=== PATIENT | female | born 1935 | race Caucasian/White ===

== ENCOUNTER → 2017-03-06 | Outpatient (CLI) | payer MEDICARE ==
--- NOTE | 2017-03-07 07:07 | US ---
EXAMINATION TYPE: US kidneys/renal and bladder DATE OF EXAM: 03/06/2017 4:02 PM COMPARISON: NONE CLINICAL HISTORY: 81-year-old female N39.0 URINARY TRACT INFECTION. TECHNIQUE: Multiple sonographic images of the kidneys and bladder were obtained. FINDINGS: Right Kidney: 8.1 x 4.5 x 5.0 cm Left Kidney: 9.1 x 4.2 x 4.2 cm No hydronephrosis on either side. Bladder: No gross abnormality. Bilateral Jets seen: no IMPRESSION: No hydronephrosis. Neither ureteral jet was seen during the course of the exam. Query any underlying chronic kidney disease.
== END | disposition home or self-care (01) ==
LOC: RADUSWWP 15:44
PROVIDERS: ATTEND Internal Medicine Infectious Disease
DX: N39.0 Urinary tract infection, site not specified (principal); N20.0 Calculus of kidney
CPT/HCPCS: 76770

== ENCOUNTER → 2017-03-06 | Day surgery (SDC) | payer MEDICARE ==
[2017-03-05 15:07] VITALS: BMI 23.3
[~2017-03-06] MED LIST: ERTAPENEM 1 GM in SODIUM CHLORIDE 0.9% 50 ML IVPB ONE; LIDOCAINE 2% INJ 20 MG/ML (20 ML MDV) ONE; LIDOCAINE 2% INJ 20 MG/ML SQ ONE
[2017-03-06 13:56] VITALS: RESP 16; TEMP 98.7
--- NOTE | 2017-03-06 14:40 | IR ---
PICC LINE PLACEMENT: HISTORY: Infection requiring long-term antibiotic therapy PROCEDURE: Ultrasound and fluoroscopic guidance of PICC line placement. COMPLICATIONS: None ANESTHESIA: 1. 1% Lidocaine locally. FINDINGS/TECHNIQUE: The procedure was explained to the patient. The risks, complications, benefits and alternatives were discussed and any questions were answered. Informed consent was obtained. The patient was placed supine on the fluoroscopic table and prepped and draped in the usual sterile fash ion. Utilizing a 21 gauge needle and sonographic and fluoroscopic guidance, access in the left basi lic vein was achieved and there is placement of a 0.018 guidewire. The vein is patent. A 4-F sheath was placed over the guidewire. The guidewire and dilator were removed and a 4-F. PICC line was plac ed through the sheath with the tip at the level of the SVC. The sheath was removed, the catheter was flushed and sutured into position. The patient was stable throughout the procedure and remained sta ble upon discharge from the Department of Radiology. The vein puncture was patent under ultrasound. A michelle scale image was obtained to document patency of the vein punctured. All elements of the maximal barrier technique were utilized. FLUOROSCOPY TIME: 0.1 minute IMPRESSION: Successful PICC line placement under ultrasound and fluoroscopic guidance.
[2017-03-06 14:45] VITALS: BP 141/65; PULSE 75
== END ==
LOC: CATHCVL 13:29
PROVIDERS: ATTEND Radiology Diagnostic Radiology
DX: N39.0 Urinary tract infection, site not specified (principal); B96.4 Proteus (mirabilis) (morganii) as the cause of diseases classified elsewhere; N39.498 Other specified urinary incontinence; N20.0 Calculus of kidney; Z87.891 Personal history of nicotine dependence; I10 Essential (primary) hypertension; E78.5 Hyperlipidemia, unspecified; Z79.84 Long term (current) use of oral hypoglycemic drugs; Z79.82 Long term (current) use of aspirin; Z79.899 Other long term (current) drug therapy; Z88.1 Allergy status to other antibiotic agents; Z88.0 Allergy status to penicillin; Z88.2 Allergy status to sulfonamides; Z88.8 Allergy status to other drugs, medicaments and biological substances
CPT/HCPCS: 36569; 76937; 77001; C1751; C1769; J2001; J1335; 76770

== ENCOUNTER → 2017-03-29 | Outpatient (CLI) | payer MEDICARE ==
[2017-03-29 14:26] VITALS: RESP 16
== END | disposition home or self-care (01) ==
LOC: PROCWHC3 14:04
PROVIDERS: ATTEND Internal Medicine Infectious Disease
DX: N39.0 Urinary tract infection, site not specified (principal); B96.4 Proteus (mirabilis) (morganii) as the cause of diseases classified elsewhere
CPT/HCPCS: 99213

== ENCOUNTER → 2018-04-29 | Outpatient (CLI) | payer MEDICARE ==
--- NOTE | 2018-04-29 11:01 | XR ---
EXAMINATION TYPE: XR cervical spine comp DATE OF EXAM: 04/29/2018 TECHNIQUE: Frontal, lateral, oblique, and open mouth view of the cervical spine are obtained. HISTORY: M54.2 Cervicalgia neck pain for 2 years per patient. COMPARISON: None FINDINGS: Osseous structures are demineralized which is noted to lower radiographic sensitivity. The cervical spine is visualized in its entirety from C1 thru the top of T1 level, there is grade 1 retr olisthesis of C5 on C6 without evidence of acute fracture or dislocation. The pre-vertebral soft tis adela appears within normal limits. The C1-C2 articulation is within normal limits on the open mouth v iew. Vertebral body heights are maintained. There is advanced disc space narrowing C4-C5 level. Ther e is mild to moderate posterior disc space narrowing and spurring C5-C6 level. The oblique images are within normal limits. There is moderate to severe calcified plaque left carotid bulb in the overlyin g soft tissue. Consider carotid ultrasound to further evaluate. IMPRESSION: As above.
== END | disposition home or self-care (01) ==
LOC: RADXRMAIN 09:59
PROVIDERS: ATTEND Family Medicine
DX: M48.02 Spinal stenosis, cervical region (principal); M43.12 Spondylolisthesis, cervical region; M46.02 Spinal enthesopathy, cervical region
CPT/HCPCS: 72050

== ENCOUNTER → 2019-03-20 | Outpatient (CLI) | payer MEDICARE ==
[~2019-03-20] MED LIST changes: +DENOSUMAB 60 MG/ML 1 ML SYRINGE SQ NR; -ERTAPENEM 1 GM in SODIUM CHLORIDE 0.9% 50 ML IVPB ONE; -LIDOCAINE 2% INJ 20 MG/ML (20 ML MDV) ONE; -LIDOCAINE 2% INJ 20 MG/ML SQ ONE
[2019-03-20 14:26] VITALS: BP 147/80; PULSE 93; RESP 16; TEMP 97.8
== END ==
LOC: PROCWHC3 14:15
PROVIDERS: ATTEND Family Medicine
DX: M81.0 Age-related osteoporosis without current pathological fracture (principal)
CPT/HCPCS: 96372; J0897

== ENCOUNTER → 2021-05-26 | Outpatient (CLI) | payer MEDICARE ==
--- NOTE | 2021-05-31 09:51 | MM ---
Reason for exam: screening (asymptomatic). Last mammogram was performed 7 years and 4 months ago. History: Patient is postmenopausal. Physical Findings: A clinical breast exam by your physician is recommended on an annual basis and results should be correlated with mammographic findings. MG 3D Screening Mammo W/Cad Bilateral CC and MLO view(s) were taken. Prior study comparison: January 12, 2014, bilateral digital screening mammo w/CAD. July 04, 2012, bilateral digital screening mammo w/CAD. March 23, 2010, bilateral digital screening mammogram. Focal asymmetry right and left upper outer quadrant, stable. ASSESSMENT: Benign, BI-RAD 2 RECOMMENDATION: Routine screening mammogram of both breasts in 1 year.
== END | disposition home or self-care (01) ==
LOC: RADMAMWWP 11:24
PROVIDERS: ATTEND Family Medicine
DX: Z12.31 Encounter for screening mammogram for malignant neoplasm of breast (principal)
CPT/HCPCS: 77063; 77067

== ENCOUNTER → 2022-05-20 | Outpatient (CLI) | payer MEDICARE ==
--- NOTE | 2022-05-20 12:20 | MR ---
EXAMINATION TYPE: MR lumbar spine wo con DATE OF EXAM: 05/20/2022 COMPARISON: None HISTORY: Lower back pain, down back of right thigh. CONTRAST: 0 mL intravenous Gadavist. TECHNIQUE: Multiplanar, multisequence images of the lumbar spine were acquired. FINDINGS: Cord terminates at the L1 level. Degenerative disc changes are present throughout the lumbar spine. Schmorl's node formation is noted L2-L3 and T12. L5-S1: There is a left paracentral left lateral disc herniation. In the sagittal plane there appears to be an annular tear. Correlate with left S1 radicular symptoms No spinal canal stenosis. Severe b ilateral foraminal stenosis present . L4-L5: No significant disc bulge or disc herniation. No spinal canal stenosis. No foraminal stenosi s. Facet hypertrophy with ligamentum flavum laxity is noted no stenosis is evident. L3-L4: There is loss of disc height. Residual disc bulge has mild anterior thecal sac compression. Hy pertrophy with ligamentum flavum laxity is posterior lateral thecal sac impression, greater on the ri ght L2-L3: Mild disc bulging is present with anterior thecal sac contact No spinal canal stenosis. No f oraminal stenosis. Facet hypertrophy and ligamentum flavum laxity is some mild posterior lateral the rex sac compression. L1-L2: Disc bulge has mild anterior thecal sac compression. No spinal canal stenosis. No foraminal stenosis. . T12-L1: Minimal right paracentral broad-based bulge is present with anterior thecal sac compression. No stenosis is present No foraminal stenosis. IMPRESSION: 1. Left paracentral small disc herniation and annular tear at L5-S1 in the left paracentral region. C orrelate left S1 radicular symptoms. 2. Multilevel degenerative disc changes with loss of disc height and residual disc bulging. Disc bulg ing appears greatest L1-L2 3 and L3-4 with mild anterior thecal sac compression
== END | disposition home or self-care (01) ==
LOC: RADMRIMAIN 11:15
PROVIDERS: ATTEND Physical Medicine & Rehabilitation
DX: M47.817 Spondylosis without myelopathy or radiculopathy, lumbosacral region (principal); M41.24 Other idiopathic scoliosis, thoracic region; M47.814 Spondylosis without myelopathy or radiculopathy, thoracic region; M47.812 Spondylosis without myelopathy or radiculopathy, cervical region; M51.27 Other intervertebral disc displacement, lumbosacral region; M51.36 Other intervertebral disc degeneration, lumbar region
CPT/HCPCS: 72148

== ENCOUNTER 2023-04-08 07:45 | Day surgery (SDC) | payer MEDICARE ==
[2023-04-04 15:05] VITALS: BMI 18.8
--- NOTE | 2023-04-08 07:34 | P.GSHP ---
History of Present Illness H&P Date: 04/08/23 CHIEF COMPLAINT: GERD HISTORY OF PRESENT ILLNESS: The patient is a 87-year-old female who presents reports gastroesophageal reflux disease. Upper endoscopy was offered for further evaluation and management. PAST MEDICAL HISTORY: Please see list. PAST SURGICAL HISTORY: Please see list. MEDICATIONS: Please see list. ALLERGIES: Please see list. SOCIAL HISTORY: No illicit drug use FAMILY HISTORY: No reports of Crohn disease or ulcerative colitis. REVIEW OF ORGAN SYSTEMS: CONSTITUTIONAL: No reports of fevers or chills. GI: Denies any blood in stools or constipation. PHYSICAL EXAM: VITAL SIGNS: Stable GENERAL: Well-developed and pleasant in no acute distress. HEENT: No scleral icterus. Extraocular movements grossly intact. Moist buccal mucosa. NECK: Supple without lymphadenopathy. CHEST: Unlabored respirations. Equal bilateral excursions. CARDIOVASCULAR: Regular rate and rhythm. Distal 2+ pulses. ABDOMEN: Soft, nondistended. MUSCULOSKELETAL: No clubbing, cyanosis, or edema. ASSESSMENT: 1. Gastroesophageal reflux disease PLAN: 1. Recommend proceeding with an upper endoscopy Past Medical History Past Medical History: CVA/TIA, Hypertension, Osteoarthritis (OA) Additional Past Medical History / Comment(s): possible TIA 2015, hx fx vertebrae in back., back pain, osteoporosis. History of Any Multi-Drug Resistant Organisms: None Reported Past Surgical History: Hysterectomy, Joint Replacement Additional Past Surgical History / Comment(s): colonoscopy, total rt knee Past Anesthesia/Blood Transfusion Reactions: Previous Problems w/ Anesthesia, Postoperative Nausea & Vomiting (PONV) Additional Past Anesthesia/Blood Transfusion Reaction / Comment(s): passed out after discharge from colonoscopy and went by ambulance back to the ER. Past Psychological History: No Psychological Hx Reported Smoking Status: Former smoker Past Alcohol Use History: Rare Additional Past Alcohol Use History / Comment(s): started smoking at age 20,smoked 1/2 ppd, quit in 1999 Past Drug Use History: None Reported - Past Family History Sister(s) Family Medical History: Cancer Additional Family Medical History / Comment(s): pancreatic cancer Mother Family Medical History: Hypertension, Osteoarthritis (OA) Father Additional Family Medical History / Comment(s): panic attacks and alcoholism Medications and Allergies Home Medications Medication Instructions Recorded Confirmed Type amLODIPine [Norvasc] 5 mg PO DAILY 03/16/15 04/04/23 History HYDROcodone/APAP 7.5-325MG [[place] 1 tab PO DIRECTED PRN 03/05/17 04/04/23 History 7.5-325] Aspirin 81 mg PO DAILY 03/20/19 04/04/23 History Calcium Carbonate [Calcium] 600 mg PO DAILY 04/04/23 04/04/23 History Multivit-Min/Iron/Folic/Lutein 1 each PO DAILY 04/04/23 04/04/23 History [Centrum Silver Women Tablet] polyethylene glycoL 3350 [Miralax] 17 gm PO DIRECTED 04/04/23 04/04/23 History Allergies Allergy/AdvReac Type Severity Reaction Status Date / Time alendronate sodium Allergy Unknown Verified 04/04/23 14:37 [From Fosamax] ceftriaxone [From Rocephin] Allergy Unknown Verified 04/04/23 14:37 Penicillins Allergy Unknown Verified 04/04/23 14:37 Bogalpv-KBW-SpL Reductase Allergy Unknown Verified 04/04/23 14:37 Inhibitor [Kvdtlcn-Ohv-Jmo Reductase Inhibitor] sulfamethoxazole Allergy facial Verified 04/04/23 14:37 [From Bactrim] swelling trimethoprim [From Bactrim] Allergy facial Verified 04/04/23 14:37 swelling amoxicillin AdvReac mouth Verified 04/04/23 14:37 blisters bacitracin AdvReac blisters Verified 04/04/23 14:37 [From Neosporin ([id number])] bacitracin zinc AdvReac blisters Verified 04/04/23 14:37 [From Neosporin ([id number])] neomycin sulfate AdvReac blisters Verified 04/04/23 14:37 [From Neosporin ([id number])] polymyxin B AdvReac blisters Verified 04/04/23 14:37 [From Neosporin ([id number])]
[~2023-04-08 07:45] MED LIST changes: -DENOSUMAB 60 MG/ML 1 ML SYRINGE SQ NR; +LACTATED RINGERS 1,000 ML IV SCH
[2023-04-08 08:14] VITALS: TEMP 97.5
[2023-04-08] MEDS ORDERED: LIDOCAINE 2% INJ 20 MG/ML (2 ML VIAL) ONE (08:23)
[2023-04-08] MEDS ORDERED: PROPOFOL 10 MG/ML 20 ML VIAL IV ONE (08:23)
--- NOTE | 2023-04-08 08:44 | P.PCN ---
Date of Procedure: 04/08/23 Description of Procedure: PREOPERATIVE DIAGNOSIS: Rectal bleeding POSTOPERATIVE DIAGNOSIS: Constipation Incomplete prep OPERATION: Colonoscopy to the sigmoid colon. SURGEON: Radha Woodall MD. ANESTHESIA: MAC. INDICATIONS: The patient is a 87-year-old female who presents for rectal bleeding and fi stula. Benefits and risks were described and informed consent was obtained. DESCRIPTION OF PROCEDURE: The patient had undergone Sutab prep. She had been brought into the operating room and laid in the left lateral decubitus position. After adequate intravenous sedation, the rectum was examined with 2% lidocaine jelly. External hemorrhoids were encountered. The rectal tone was loose. No lesions were palpated in the rectal vault. Moderate semisolid stools identified in the sigmoid colon. The scope was passed to 30 cm from the anal verge. Due to poor prep, procedure canceled. The colon was desufflated. The patient had tolerated the procedure well. Withdrawal time was over 6 minutes. FINDINGS: [place] preparation quality scale 5 (1-5) Nondiagnostic colonoscopy/flexible sigmoidoscopy RECOMMENDATIONS: Repeat colonoscopy after adequate prep Plan - Discharge Summary New Discharge Prescriptions: Continue amLODIPine [Norvasc] 5 mg PO DAILY HYDROcodone/APAP 7.5-325MG [[place] 7.5-325] 1 tab PO DIRECTED PRN PRN Reason: Pain Aspirin 81 mg PO DAILY polyethylene glycoL 3350 [Miralax] 17 gm PO DIRECTED Multivit-Min/Iron/Folic/Lutein [Centrum Silver Women Tablet] 1 each PO DAILY Calcium Carbonate [Calcium] 600 mg PO DAILY Discharge Medication List amLODIPine [Norvasc] 5 mg PO DAILY 03/16/15 [History] HYDROcodone/APAP 7.5-325MG [[place] 7.5-325] 1 tab PO DIRECTED PRN 03/05/17 [History] Aspirin 81 mg PO DAILY 03/20/19 [History] Calcium Carbonate [Calcium] 600 mg PO DAILY 04/04/23 [History] Multivit-Min/Iron/Folic/Lutein [Centrum Silver Women Tablet] 1 each PO DAILY 04/04/23 [History] polyethylene glycoL 3350 [Miralax] 17 gm PO DIRECTED 04/04/23 [History] Follow up Appointment(s)/Referral(s): Radha Woodall MD [STAFF PHYSICIAN] - As Needed Patient Instructions/Handouts: Constipation (DC) Discharge Disposition: HOME SELF-CARE
[2023-04-08 09:13] VITALS: BP 143/76; PULSE 76; RESP 20
== END 2023-04-08 09:15 | disposition home or self-care (01) ==
LOC: ORWHC2ENDO 07:45
PROVIDERS: ATTEND Surgery Plastic and Reconstructive Surgery
DX: K64.4 Residual hemorrhoidal skin tags (principal); K21.9 Gastro-esophageal reflux disease without esophagitis; I10 Essential (primary) hypertension; M19.90 Unspecified osteoarthritis, unspecified site; M81.0 Age-related osteoporosis without current pathological fracture; Z86.73 Personal history of transient ischemic attack (TIA), and cerebral infarction without residual deficits; F10.20 Alcohol dependence, uncomplicated; Z87.891 Personal history of nicotine dependence; Z79.82 Long term (current) use of aspirin; Z79.899 Other long term (current) drug therapy; Z88.1 Allergy status to other antibiotic agents; Z88.0 Allergy status to penicillin; Z88.8 Allergy status to other drugs, medicaments and biological substances; Z88.2 Allergy status to sulfonamides
CPT/HCPCS: 45330; J2704; J2001

== ENCOUNTER → 2023-05-06 | Day surgery (SDC) | payer MEDICARE ==
[2023-05-01 14:58] VITALS: BMI 18.8
[~2023-05-06] MED LIST changes: +LIDOCAINE 1% (10MG/ML) FOR IV START INTRADERMA PRN; +PROPOFOL 10 MG/ML 20 ML VIAL IV ONE
[2023-05-06 08:38] VITALS: RESP 16; TEMP 97
--- NOTE | 2023-05-06 08:52 | P.GSHP ---
History of Present Illness H&P Date: 05/06/23 CHIEF COMPLAINT: Rectovaginal fistula rectal bleeding HISTORY OF PRESENT ILLNESS: The patient is a 87-year-old female who presents with rectal bleeding including possible colovaginal fistula. Lower endoscopy was offered for further evaluation and management. PAST MEDICAL HISTORY: Please see list. PAST SURGICAL HISTORY: Please see list. MEDICATIONS: Please see list. ALLERGIES: Please see list. SOCIAL HISTORY: No illicit drug use FAMILY HISTORY: No reports of Crohn disease or ulcerative colitis. REVIEW OF ORGAN SYSTEMS: CONSTITUTIONAL: No reports of fevers or chills. PHYSICAL EXAM: VITAL SIGNS: Stable GENERAL: Well-developed pleasant in no acute distress. HEENT: No scleral icterus. Extraocular movements grossly intact. Moist buccal mucosa. NECK: Supple without lymphadenopathy. CHEST: Unlabored respirations. Equal bilateral excursions. CARDIOVASCULAR: Regular rate and rhythm. Distal 2+ pulses. ABDOMEN: Soft, nontender, nondistended. MUSCULOSKELETAL: No clubbing, cyanosis, or edema. ASSESSMENT: 1. Rectal bleeding with colovaginal fistula PLAN: 1. Recommend proceeding with a lower endoscopy Past Medical History Past Medical History: CVA/TIA, Hypertension, Osteoarthritis (OA) Additional Past Medical History / Comment(s): possible TIA 2016, hx fx vertebrae in back., back pain, osteoporosis. History of Any Multi-Drug Resistant Organisms: None Reported Past Surgical History: Hysterectomy, Joint Replacement Additional Past Surgical History / Comment(s): colonoscopy, total rt knee Past Anesthesia/Blood Transfusion Reactions: Previous Problems w/ Anesthesia, Postoperative Nausea & Vomiting (PONV) Additional Past Anesthesia/Blood Transfusion Reaction / Comment(s): passed out after discharge from colonoscopy and went by ambulance back to the ER. Smoking Status: Former smoker - Past Family History Sister(s) Family Medical History: Cancer Additional Family Medical History / Comment(s): pancreatic cancer Mother Family Medical History: Hypertension, Osteoarthritis (OA) Father Additional Family Medical History / Comment(s): panic attacks and alcoholism Medications and Allergies Home Medications Medication Instructions Recorded Confirmed Type amLODIPine [Norvasc] 5 mg PO DAILY 03/16/15 05/06/23 History HYDROcodone/APAP 7.5-325MG [[place] 1 tab PO DIRECTED PRN 03/05/17 05/06/23 History 7.5-325] Aspirin 81 mg PO DAILY 03/20/19 05/06/23 History Calcium Carbonate [Calcium] 600 mg PO DAILY 04/04/23 05/06/23 History Multivit-Min/Iron/Folic/Lutein 1 each PO DAILY 04/04/23 05/06/23 History [Centrum Silver Women Tablet] polyethylene glycoL 3350 [Miralax] 17 gm PO DIRECTED 04/04/23 05/06/23 History Lactulose [Cephulac] 20 gm PO BID #400 ml 04/08/23 05/06/23 Rx Allergies Allergy/AdvReac Type Severity Reaction Status Date / Time alendronate sodium Allergy Unknown Verified 05/06/23 08:39 [From Fosamax] ceftriaxone [From Rocephin] Allergy Unknown Verified 05/06/23 08:39 Penicillins Allergy Unknown Verified 05/06/23 08:39 Gsurrpx-KES-CrL Reductase Allergy Unknown Verified 05/06/23 08:39 Inhibitor [Lifwhlx-Pvc-Juw Reductase Inhibitor] sulfamethoxazole Allergy facial Verified 05/06/23 08:39 [From Bactrim] swelling trimethoprim [From Bactrim] Allergy facial Verified 05/06/23 08:39 swelling amoxicillin AdvReac mouth Verified 05/06/23 08:39 blisters bacitracin AdvReac blisters Verified 05/06/23 08:39 [From Neosporin ([id number])] bacitracin zinc AdvReac blisters Verified 05/06/23 08:39 [From Neosporin ([id number])] neomycin sulfate AdvReac blisters Verified 05/06/23 08:39 [From Neosporin ([id number]-rcg-heaje)] polymyxin B AdvReac blisters Verified 05/06/23 08:39 [From Neosporin ([id number]-[id number])] Surgical - Exam Vital Signs Temp Pulse Resp BP Pulse Ox 97 F L 96 16 140/65 98 05/06/23 08:30 05/06/23 08:30 05/06/23 08:30 05/06/23 08:30 05/06/23 08:30
[2023-05-06 09:32] VITALS: BP 115/71; PULSE 68
--- NOTE | 2023-05-06 09:51 | P.PCN ---
Date of Procedure: 05/06/23 Description of Procedure: PREOPERATIVE DIAGNOSIS: Rectal bleeding Colovaginal fistula POSTOPERATIVE DIAGNOSIS: Sigmoid diverticulosis with stricture OPERATION: Colonoscopy to the sigmoid colon. SURGEON: Radha Woodall MD. ANESTHESIA: MAC. INDICATIONS: The patient is a 87-year-old female who presents with change in bowel habits, rectal bleeding, possible fistula. Benefits and risks were described and informed consent was obtained. DESCRIPTION OF PROCEDURE: The patient had undergone extended prep including lactulose, Suprep. She had been brought into the operating room and laid in the left lateral decubitus position. After adequate intravenous sedation, the rectum was examined with 2% lidocaine jelly. External hemorrhoids were encountered. The rectal tone was loose. No lesions were palpated in the rectal vault. An Olympus colonoscope was advanced along the rectum to a very tortuous sigmoid colon. The scope was then exchanged for a pediatric colonoscope. Despite multiple maneuvers, the sigmoid colon had severe tortuosity preventing further advancement of scope. The scope was passed to 30 cm from the anal verge with multiple sigmoid diverticula identified in stricture. No evidence of polyps were identified. As the patient posed high risk for perforation with persistence of the procedure, the procedure was discontinued. The colon was desufflated. The patient had tolerated the procedure well. Withdrawal time was over 6 minutes. FINDINGS: [place] preparation quality scale 3m (1-5) Tortuous sigmoid colon with stricture preventing further advancement of the scope. Sigmoid colon stricture from diverticulosis. External prolapsed hemorrhoids. Scope advanced to sigmoid colon at 30 cm. No arteriovenous malformations. No adenomatous polyps sigmoid colon. No focal colitis. RECOMMENDATIONS: Completion of colonoscopy evaluation with barium enema. Plan - Discharge Summary Discharge Rx Participant: Yes New Discharge Prescriptions: Continue amLODIPine [Norvasc] 5 mg PO DAILY HYDROcodone/APAP 7.5-325MG [[place] 7.5-325] 1 tab PO DIRECTED PRN PRN Reason: Pain Aspirin 81 mg PO DAILY polyethylene glycoL 3350 [Miralax] 17 gm PO DIRECTED Multivit-Min/Iron/Folic/Lutein [Centrum Silver Women Tablet] 1 each PO DAILY Calcium Carbonate [Calcium] 600 mg PO DAILY Lactulose [Cephulac] 20 gm PO BID #400 ml Discharge Medication List amLODIPine [Norvasc] 5 mg PO DAILY 03/16/15 [History] HYDROcodone/APAP 7.5-325MG [[place] 7.5-325] 1 tab PO DIRECTED PRN 03/05/17 [History] Aspirin 81 mg PO DAILY 03/20/19 [History] Calcium Carbonate [Calcium] 600 mg PO DAILY 04/04/23 [History] Multivit-Min/Iron/Folic/Lutein [Centrum Silver Women Tablet] 1 each PO DAILY 04/04/23 [History] polyethylene glycoL 3350 [Miralax] 17 gm PO DIRECTED 04/04/23 [History] Lactulose [Cephulac] 20 gm PO BID #400 ml 04/08/23 [Rx] Follow up Appointment(s)/Referral(s): Radha Woodall MD [STAFF PHYSICIAN] - 05/28/23 11:30 am Patient Instructions/Handouts: Diverticulitis (DC) Discharge Disposition: HOME SELF-CARE
--- NOTE | 2023-05-06 11:48 | FL ---
EXAMINATION TYPE: FL barium enema DATE OF EXAM: 05/06/2023 CLINICAL HISTORY: Large bowel obstruction, sigmoid stricture TECHNIQUE: A single contrast barium enema study is performed. Total dose area product (DAP) in uGy* m?, mGy*cm? (or similar): COMPARISON: None. FINDINGS: The patient is status post incomplete colonoscopy. There is a large amount of air within th e large bowel as well as the small bowel. Therefore single contrast barium enema was attempted. Singl e contrast barium enema was initiated however the patient could not retain the barium and therefore e xamination was discontinued. IMPRESSION: Discontinued barium enema.
== END | disposition home or self-care (01) ==
LOC: ORWHC2ENDO 08:16
PROVIDERS: ATTEND Surgery Plastic and Reconstructive Surgery
DX: K62.5 Hemorrhage of anus and rectum (principal); N82.3 Fistula of vagina to large intestine; K57.30 Diverticulosis of large intestine without perforation or abscess without bleeding; K56.699 Other intestinal obstruction unspecified as to partial versus complete obstruction; I10 Essential (primary) hypertension; Z86.73 Personal history of transient ischemic attack (TIA), and cerebral infarction without residual deficits; M19.90 Unspecified osteoarthritis, unspecified site; Z79.82 Long term (current) use of aspirin; Z90.710 Acquired absence of both cervix and uterus; Z98.890 Other specified postprocedural states; Z87.891 Personal history of nicotine dependence; Z82.61 Family history of arthritis; Z79.899 Other long term (current) drug therapy
CPT/HCPCS: 74270; 45330; J2704

== ENCOUNTER 2024-11-20 16:25 | Inpatient (IN) | payer MEDICARE ==
[2024-11-20] MEDS ORDERED: ACETAMINOPHEN IV (For NPO) 700 MG in EMPTY BAG 1 BAG IVPB STA (19:27)
--- NOTE | 2024-11-20 19:27 | ED ---
General Adult HPI - General Chief complaint: Urogenital Stated complaint: bowel/bladder issue Time Seen by Provider: 11/20/24 16:47 Source: patient, family, RN notes reviewed, old records reviewed Mode of arrival: ambulatory Limitations: no limitations - History of Present Illness Initial comments: Patient not in the room on the first 3 occasions I tried to evaluate her however she was on the fourth. Patient is an 89-year-old female presenting to the emergency department with concerns for left CVA pain and urinary frequency. Symptoms have been occurring for several days. Patient does have some chronic back pain however left CVA region is where is bothering her currently. Patient has been constipated recently. Patient has significant urinary frequency and urgency. Patient did have 1 episode of incontinence. No midline back pain. No leg weakness. No loss of sensation. Patient was in the emergency department yesterday and discussion was had to have the patient stay in the hospital however patient refused at that time. - Related Data Home Medications Medication Instructions Recorded Confirmed HYDROcodone/APAP 7.5-325MG [[place] 1 tab PO BID PRN 03/05/17 11/20/24 7.5-325] Cyclobenzaprine [Flexeril] 5 mg PO HS PRN 11/20/24 11/20/24 Levofloxacin [Levaquin] 750 mg PO HS 11/20/24 11/20/24 Losartan [Cozaar] 50 mg PO DAILY 11/20/24 11/20/24 Allergies Allergy/AdvReac Type Severity Reaction Status Date / Time alendronate sodium Allergy Unknown Verified 11/20/24 18:17 [From Fosamax] ceftriaxone [From Rocephin] Allergy Unknown Verified 11/20/24 18:17 Penicillins Allergy Unknown Verified 11/20/24 18:17 Ohvklep-MSS-NkE Reductase Allergy Unknown Verified 11/20/24 18:17 Inhibitor [Yghocjj-Kdm-Ppe Reductase Inhibitor] sulfamethoxazole Allergy facial Verified 11/20/24 18:17 [From Bactrim] swelling trimethoprim [From Bactrim] Allergy facial Verified 11/20/24 18:17 swelling amoxicillin AdvReac mouth Verified 11/20/24 18:17 blisters bacitracin AdvReac blisters Verified 11/20/24 18:17 [From Neosporin ([id number])] bacitracin zinc AdvReac blisters Verified 11/20/24 18:17 [From Neosporin (zro-[id number])] neomycin sulfate AdvReac blisters Verified 11/20/24 18:17 [From Neosporin ([id number]-[id number])] polymyxin B AdvReac blisters Verified 11/20/24 18:17 [From Neosporin ([id number]-[id number])] Review of Systems ROS Statement: Those systems with pertinent positive or pertinent negative responses have been documented in the HPI. ROS Other: All systems not noted in ROS Statement are negative. Constitutional: Denies: fever Eyes: Denies: eye pain ENT: Denies: ear pain Respiratory: Denies: dyspnea Cardiovascular: Denies: chest pain Gastrointestinal: Reports: as per HPI Genitourinary: Reports: as per HPI, urgency, frequency Musculoskeletal: Reports: as per HPI Neurological: Denies: weakness, numbness, paresthesias Past Medical History Past Medical History: CVA/TIA, Hypertension, Osteoarthritis (OA) Additional Past Medical History / Comment(s): possible TIA 2015, hx fx vertebrae in back., back pain, osteoporosis. History of Any Multi-Drug Resistant Organisms: None Reported Past Surgical History: Hysterectomy, Joint Replacement Additional Past Surgical History / Comment(s): colonoscopy, total rt knee Past Anesthesia/Blood Transfusion Reactions: Previous Problems w/ Anesthesia, Postoperative Nausea & Vomiting (PONV) Additional Past Anesthesia/Blood Transfusion Reaction / Comment(s): passed out after discharge from colonoscopy and went by ambulance back to the ER. Past Psychological History: No Psychological Hx Reported Smoking Status: Former smoker Past Alcohol Use History: None Reported Past Drug Use History: None Reported - Past Family History Sister(s) Family Medical History: Cancer Additional Family Medical History / Comment(s): pancreatic cancer Mother Family Medical History: Hypertension, Osteoarthritis (OA) Father Additional Family Medical History / Comment(s): panic attacks and alcoholism General Exam Limitations: no limitations General appearance: alert, in no apparent distress Head exam: Present: normocephalic Eye exam: Present: normal appearance Neck exam: Present: normal inspection Respiratory exam: Present: normal lung sounds bilaterally Cardiovascular Exam: Present: regular rate, normal rhythm Expanded Peripheral pulses: 2+: Posterior Tibialis (R), Posterior Tibialis (L) GI/Abdominal exam: Present: soft. Absent: distended, tenderness Extremities exam: Present: normal inspection Back exam: Present: normal inspection. Absent: tenderness, CVA tenderness (R), CVA tenderness (L), vertebral tenderness Neurological exam: Present: alert Psychiatric exam: Present: normal affect, normal mood Skin exam: Present: normal color Course Vital Signs 11/20/24 11/20/24 16:37 18:18 Temperature 97.5 F L 97.7 F Pulse Rate 80 94 Respiratory 18 20 Rate Blood Pressure 132/76 127/77 O2 Sat by Pulse 100 96 Oximetry Medical Decision Making - Medical Decision Making Was pt. sent in by a medical professional or institution (, PA, PILE DRIVER OPERATOR [employer], urgent care, hospital, or alf...) When possible be specific @ -No Did you speak to anyone other than the patient for history (EMS, parent, family, police, friend...)? What history was obtained from this source @ -Family is present helps provide history including patient's recent visit and symptoms as patient is a poor historian Did you review nursing and triage notes (agree or disagree)? Why? @ -I reviewed and agree with nursing and triage notes Were old charts reviewed (outside hosp., previous admission, EMS record, old EKG, old radiological studies, urgent care reports/EKG's, alf records)? Report findings @ -No old charts were reviewed Differential Diagnosis (chest pain, altered mental status, abdominal pain women, abdominal pain men, vaginal bleeding, weakness, fever, dyspnea, syncope, headache, dizziness, GI bleed, back pain, seizure, CVA, palpatations, mental health, musculoskeletal)? @ -Differential Abdominal Pain Women: Appendicitis, Cholecystitis, diverticulosis, ischemic bowel, pancreatitis, hepatitis, UTI, gastroenteritis, AAA, incarcerated hernia, bowel obstruction, constipation, inflammatory bowel, hepatitis, peptic ulcer disease, splenic infarction, perforated viscus, vulvitis, ovarian torsion, PID, kidney stone, placenta abruption, this is not meant to be an all-inclusive list EKG interpreted by me (3pts min.). @ -As above X-rays interpreted by me (1pt min.). @ -None done CT interpreted by me (1pt min.). @ -None done U/S interpreted by me (1pt. min.). @ -None done What testing was considered but not performed or refused? (CT, X-rays, U/S, labs)? Why? @ -Considered imaging however this was done yesterday What meds were considered but not given or refused? Why? @ -None Did you discuss the management of the patient with other professionals (professionals i.e. , PA, PILE DRIVER OPERATOR [employer], lab, RT, psych nurse, social media campaign manager, healthcare prof, teacher, community cultural development officer, case aide)? Give summary @ -Case was discussed with Dr. maharaj who will admit covering Dr. Montero Was smoking cessation discussed for >3mins.? @ -No Was critical care preformed (if so, how long)? @ -No Were there social determinants of health that impacted care today? How? (Homelessness, low income, unemployed, alcoholism, drug addiction, transportation, low edu. Level, literacy, decrease access to med. care, half-way, rehab)? @ -No Was there de-escalation of care discussed even if they declined (Discuss DNR or withdrawal of care, Hospice)? DNR status @ -No What co-morbidities impacted this encounter? (DM, HTN, Smoking, COPD, CAD, Cancer, CVA, ARF, Chemo, Hep., AIDS, mental health diagnosis, sleep apnea, morbid obesity)? @ -None Was patient admitted / discharged? Hospital course, mention meds given and route, prescriptions, significant lab abnormalities, going to OR and other pertinent info. @ -Patient presents with left flank pain, urinary frequency and constipation symptoms. CAT scan yesterday concerning for thickening of the sigmoid colon with possible fistulous. Patient will be admitted with IV antibiotics and surgical consult. Patient and family updated. Admission orders written Undiagnosed new problem with uncertain prognosis? @ -No Drug Therapy requiring intensive monitoring for toxicity (Heparin, Nitro, Insulin, Cardizem)? @ -No Were any procedures done? 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 UTI Acute, or Chronic, or Acute on Chronic? @ -Acute, acute Uncomplicated (without systemic symptoms) or Complicated (systemic symptoms)? @ -Default Side effects of treatment? @ -No Exacerbation, Progression, or Severe Exacerbation? @ -No Poses a threat to life or bodily function? How? (Chest pain, [place], [place], pneumonia, PE, COPD, DKA, ARF, appy, cholecystitis, CVA, Diverticulitis, Homicidal, Suicidal, threat to staff... and all critical care pts) @ -Threat for continued infection. Threat for tumor of the intestine. Disposition Clinical Impression: Urinary tract infection Disposition: ADMITTED IP TO THIS HOSP Condition: Serious Is patient prescribed a controlled substance at d/c from ED?: No Referrals: Evangelista Montero DO [Primary Care Provider] - 1-2 days Time of Disposition: 19:37
[2024-11-20] MEDS ORDERED: NALOXONE 0.4 MG/ML 1 ML VIAL IV PRN (19:39)
[2024-11-20] MEDS ORDERED: ACETAMINOPHEN TAB 325 MG TAB PO PRN (19:39)
[2024-11-20 19:57] LABS: Appearance,Urine Turbid (Clear); Bilirubin,Urine Negative (Negative); Blood,Urine Moderate (Negative); Color,Urine Yellow; Glucose,Urine (UA) Negative (Negative); Ketones,Urine 1+ (Negative); Leukocyte Esterase,Urine Large (Negative); Mucus,Urine Occasional /hpf; Nitrite,Urine Negative (Negative); Protein,Urine 1+ (Negative); RBC,Urine 61 /hpf (0-5); Specific Gravity,Urine 1.025 (1.001-1.035); Squamous Epithelial Cell,Urine 5 /hpf (0-4); Urobilinogen,Urine <2.0 mg/dL (<2.0); WBC,Urine >182 /hpf (0-5)
[2024-11-20 20:03] LABS: Basophils # (A) 0.1 k/uL (0-0.2); Basophils % (A) 1 %; Eosinophils # (A) 0.1 k/uL (0-0.7); Eosinophils % (A) 1 %; HCT 40.3 % (34.0-46.0); HGB 13.4 gm/dL (11.4-16.0); Lymphocytes # (A) 1.6 k/uL (1.0-4.8); Lymphocytes % (A) 17 %; MCH 31.9 pg (25.0-35.0); MCHC 33.2 g/dL (31.0-37.0); Mean Platelet Volume 7.5; Monocytes # (A) 0.5 k/uL (0-1.0); Monocytes % (A) 5 %; Neutrophils # (A) 7.3 k/uL (1.3-7.7); Neutrophils % (A) 76 %; Platelet Count 199 k/uL (150-450); RDW 12.6 % (11.5-15.5); WBC 9.6 k/uL (3.8-10.6)
[2024-11-20 20:13] LABS: ALT 14 U/L (4-34); AST 25 U/L (14-36); African American GFR (CKD) 58 (>60 ml/min/1.73 sqM); Albumin 4.3 g/dL (3.5-5.0); Alkaline Phosphatase 89 U/L (38-126); Amylase 41 U/L (30-110); Anion Gap 9 mmol/L; Blood Urea Nitrogen 19 mg/dL (7-17); Calcium 9.6 mg/dL (8.4-10.2); Carbon Dioxide 27 mmol/L (22-30); Chloride 100 mmol/L (98-107); Glucose 94 mg/dL (74-99); Lipase 42 U/L (23-300); Non-African American GFR(CKD) 50 (>60 ml/min/1.73 sqM); Potassium 3.9 mmol/L (3.5-5.1); Sodium 136 mmol/L (137-145); Total Bilirubin 0.8 mg/dL (0.2-1.3); Total Protein 7.6 g/dL (6.3-8.2)
[2024-11-20] MEDS: ACETAMINOPHEN IV (For NPO) 1,000 MG in EMPTY BAG 1 BAG IVPB STA (21:10)
[2024-11-20] MEDS: FAMOTIDINE 20 MG TAB PO SCH (21:22)
[2024-11-20] MEDS: LEVOFLOXACIN 500MG-D5W PMX 500 MG in DEXTROSE/WATER 1 100ML.BAG IVPB SCH (21:25)
[2024-11-20] MEDS: HYDROcodone/APAP 7.5-325MG 1 EACH TAB PO PRN (22:41)
[2024-11-21] MEDS: LOSARTAN 50 MG TAB PO SCH (09:20)
[2024-11-21 11:28] VITALS: BMI 18.2
[2024-11-21 12:27] LABS: ALT 12 U/L (8-44); AST 23 U/L (13-35); Albumin 3.7 g/dL (3.8-4.9); Albumin/Globulin Ratio 1.32 Ratio (1.60-3.17); Alkaline Phosphatase 73 U/L (41-126); Blood Urea Nitrogen 15.4 mg/dL (9.0-27.0); Calcium 9.3 mg/dL (8.7-10.3); Carbon Dioxide 24.8 mmol/L (21.6-31.8); Chloride 103 mmol/L (96-109); Globulin 2.8 g/dL (1.6-3.3); Glucose 88 mg/dL (70-110); Potassium 3.8 mmol/L (3.5-5.5); Sodium 139 mmol/L (135-145); Total Bilirubin 0.6 mg/dL (0.3-1.2); Total Protein 6.5 g/dL (6.2-8.2)
--- NOTE | 2024-11-21 12:42 | P.HPIM ---
History of Present Illness H&P Date: 11/21/24 History of present illness; 89-year-old lady with past medical history significant for hypertension, CVA who came to the ER for left flank pain. Patient was seen in the ER 24 hours ago as well at which time she was advised to stay in the hospital and get IV antibiotics but patient refused. Apparently patient was all right couple of days ago when she started having left flank pain. Patient was complaining of burning micturition, there was complaint of any urinary hesitancy and increased frequency. Patient went to an urgent care and had a UA done and was later called by urgent care stating that she has a UTI and needs to go to the ER. In the ER patient CT abdominal pelvis done that show ed scattered colonic diverticulosis, there was moderate circumferential wall thickening of the sigmoid colon possible chronic diverticulitis versus neoplasm, there was also evidence of fistula tract extended to lateral fornix of the vagina. ER initially talked with with patient regarding staying in the hospital getting seen by surgeon but patient refused and left on oral antibiotics. Patient later came back to the ER within 24 hours because of persistent left flank pain and constipation. Initial lab work done in the ER showed WBC 9.6, hemoglobin 13.4, platelet count 199, sodium 133, potassium 3.9, BUN 19, creatinine 1.01, AST 25, ALT 14, UA done showed large amount of leukocyte Estrace, urine WBC 182 Patient admitted to internal medicine service REVIEW OF SYSTEMS: CONSTITUTIONAL: No fever, no malaise, no fatigue. HEENT: No recent visual problems or hearing problems. Denied any sore throat. CARDIOVASCULAR: No chest pain, orthopnea, PND, no palpitations, no syncope. PULMONARY: No shortness of breath, no cough, no hemoptysis. GASTROINTESTINAL: No diarrhea, no nausea, no vomiting, NEUROLOGICAL: No headaches, no weakness, no numbness. HEMATOLOGICAL: Denies any bleeding or petechiae. GENITOURINARY: As mentioned above MUSCULOSKELETAL/RHEUMATOLOGICAL: Denies any joint pain, swelling, or any muscle pain. ENDOCRINE: Denies any polyuria or polydipsia. The rest of the 14-point review of systems is negative. PHYSICAL EXAMINATION: GENERAL: The patient is alert and oriented x3, not in any acute distress. Well developed, well nourished. HEENT: Pupils are round and equally reacting to light. EOMI. No scleral icterus. No conjunctival pallor. Normocephalic, atraumatic. No pharyngeal erythema. No thyromegaly. CARDIOVASCULAR: S1 and S2 present. No murmurs, rubs, or gallops. PULMONARY: Chest is clear to auscultation, no wheezing or crackles. ABDOMEN: Soft, nontender, nondistended, normoactive bowel sounds. No palpable organomegaly. MUSCULOSKELETAL: No joint swelling or deformity. EXTREMITIES: No cyanosis, clubbing, or pedal edema. NEUROLOGICAL: Gross neurological examination did not reveal any focal deficits. SKIN: No rashes. Assessment and plan Complicated UTI Colovesical fistula Constipation Monitor vital signs Monitor CBC Monitor CMP Follow-up on blood cultures follow urine culture Continue Levaquin Consult surgery Consult ID Labs and medication were reviewed.. Continue same treatment. Continue with symptomatic treatment. Resume home medication. Monitor labs and vitals. DVT and GI prophylaxis. Further recommendations as per clinical course of the patient Dictation was produced using [employer] dictation software. please excuse any grammatical, word or spelling errors. Past Medical History Past Medical History: CVA/TIA, Hypertension, Osteoarthritis (OA) Additional Past Medical History / Comment(s): possible TIA 2015, hx fx vertebrae in back., back pain, osteoporosis. History of Any Multi-Drug Resistant Organisms: None Reported Past Surgical History: Hysterectomy, Joint Replacement Additional Past Surgical History / Comment(s): colonoscopy, total rt knee Past Anesthesia/Blood Transfusion Reactions: Previous Problems w/ Anesthesia, Postoperative Nausea & Vomiting (PONV) Additional Past Anesthesia/Blood Transfusion Reaction / Comment(s): passed out after discharge from colonoscopy and went by ambulance back to the ER. Past Psychological History: No Psychological Hx Reported Smoking Status: Former smoker Past Alcohol Use History: None Reported Additional Past Alcohol Use History / Comment(s): started smoking at age 20,smoked 1/2 ppd, quit in 1999 Past Drug Use History: None Reported - Past Family History Sister(s) Family Medical History: Cancer Additional Family Medical History / Comment(s): pancreatic cancer Mother Family Medical History: Hypertension, Osteoarthritis (OA) Father Additional Family Medical History / Comment(s): panic attacks and alcoholism Medications and Allergies Home Medications Medication Instructions Recorded Confirmed Type HYDROcodone/APAP 7.5-325MG [[place] 1 tab PO BID PRN 03/05/17 11/20/24 History 7.5-325] Cyclobenzaprine [Flexeril] 5 mg PO HS PRN 11/20/24 11/20/24 History Levofloxacin [Levaquin] 750 mg PO HS 11/20/24 11/20/24 History Losartan [Cozaar] 50 mg PO DAILY 11/20/24 11/20/24 History Allergies Allergy/AdvReac Type Severity Reaction Status Date / Time alendronate sodium Allergy Unknown Verified 11/20/24 18:17 [From Fosamax] ceftriaxone [From Rocephin] Allergy Unknown Verified 11/20/24 18:17 Penicillins Allergy Unknown Verified 11/20/24 18:17 Zzrkppt-CKA-CpC Reductase Allergy Unknown Verified 11/20/24 18:17 Inhibitor [Bimqhnm-Dpx-Fnz Reductase Inhibitor] sulfamethoxazole Allergy facial Verified 11/20/24 18:17 [From Bactrim] swelling trimethoprim [From Bactrim] Allergy facial Verified 11/20/24 18:17 swelling amoxicillin AdvReac mouth Verified 11/20/24 18:17 blisters bacitracin AdvReac blisters Verified 11/20/24 18:17 [From Neosporin ([id number])] bacitracin zinc AdvReac blisters Verified 11/20/24 18:17 [From Neosporin ([id number])] neomycin sulfate AdvReac blisters Verified 11/20/24 18:17 [From Neosporin ([id number])] polymyxin B AdvReac blisters Verified 11/20/24 18:17 [From Neosporin ([id number])] Physical Exam Vitals: Vital Signs Temp Pulse Pulse Resp BP BP Pulse Ox 11/21/24 08:00 98.1 F 110 H 16 135/74 98 11/21/24 01:02 97.4 F L 90 17 146/73 98 11/20/24 23:44 97.8 F 90 17 155/85 96 11/20/24 23:00 98.4 F 83 16 151/71 97 11/20/24 22:32 97.4 F L 90 16 138/55 96 11/20/24 21:07 97.9 F 88 18 164/100 97 11/20/24 18:18 97.7 F 94 20 127/77 96 11/20/24 16:37 97.5 F L 80 18 132/76 100 Intake and Output 11/20/24 11/21/24 11/21/24 22:59 06:59 14:59 Intake Total 240 Balance 240 Intake: Oral 240 Other: # Voids 1 Weight 54.431 kg 54.431 kg Results CBC & Chem 7: 11/20/24 19:43 11/20/24 19:43 Labs: Abnormal Lab Results - Last 24 Hours (Table) 11/20/24 11/20/24 Range/Units 19:38 19:43 Sodium 136 L (137-145) mmol/L BUN 19 H (7-17) mg/dL Urine Appearance Turbid H (Clear) Urine Protein 1+ H (Negative) Urine Ketones 1+ H (Negative) Urine Blood Moderate H (Negative) Ur Leukocyte Esterase Large H (Negative) Urine RBC 61 H (0-5) /hpf Urine WBC >182 H (0-5) /hpf Urine WBC Clumps Few H (None) /hpf Ur Squamous Epith Cells 5 H (0-4) /hpf Urine Mucus Occasional H (None) /hpf Thrombosis Risk Factor Assmnt - Choose All That Apply Any of the Below Risk Factors Present?: No Each Risk Factor Represents 3 Points: Age 75 years or older Thrombosis Risk Factor Assessment Total Risk Factor Score: 3 Thrombosis Risk Factor Assessment Level: Moderate Risk
[2024-11-21 12:54] LABS: Basophils # (A) 0.06 X 10*3/uL (0.00-0.10); Eosinophils # (A) 0.05 X 10*3/uL (0.04-0.35); Eosinophils % (A) 0.8 %; HCT 39.5 % (37.2-46.3); HGB 12.3 g/dL (12.0-15.0); Lymphocytes # (A) 1.57 X 10*3/uL (0.90-5.00); Lymphocytes % (A) 25.2 %; MCH 31.1 pg (27.0-32.0); MCHC 31.1 g/dL (32.0-37.0); Mean Platelet Volume 10.6 FL (9.5-12.2); Monocytes # (A) 0.68 X 10*3/uL (0.20-1.00); Monocytes % (A) 10.9 %; NRBC Per 100 WBC 0 X 10*3/uL (0.00-0.01); Neutrophils # (A) 3.85 X 10*3/uL (1.80-7.70); Neutrophils % (A) 61.8 %; Platelet Count 192 X 10*3/uL (140-440); RBC 3.95 X 10*6/uL (4.10-5.20); RDW 13.2 % (11.5-14.5); WBC 6.23 X 10*3/uL (4.50-10.00)
[2024-11-21] MEDS: traMADol 50 MG TAB PO PRN (16:14)
--- NOTE | 2024-11-21 17:48 | P.GSCN ---
History of Present Illness Consult date: 11/21/24 History of present illness: CHIEF COMPLAINT: Incontinence urinary tract infection HISTORY OF PRESENT ILLNESS: The patient is a 89-year-old female who complains of urinary incontinence with multiple voids over 6 times daily. Patient recently had a CT scan outpatient 11/19/2024 with questionable concerns of bladder fistula. Patient has personal history of colonoscopy in 2022 which was unsuccessful due to severe diverticulosis. Attempted barium enema was performed however patient canceled the procedure due to rectal soreness. Patient at this time denies any rectal concerns or bowel concerns. And at time of my assessment she denies any abdominal pain. She is sitting up in bed in her regular clothing. She is inquiring about going home. She reports her main concern is her chronic urinary incontinence where she is admitted due to recurrent urinary tract infection. PAST MEDICAL HISTORY: See list and reviewed PAST SURGICAL HISTORY: See list and reviewed MEDICATIONS: See list and reviewed ALLERGIES: See list and reviewed SOCIAL HISTORY: See list and reviewed FAMILY HISTORY: See list and reviewed REVIEW OF ORGAN SYSTEMS: CONSTITUTIONAL: No fevers or chills. Underweight, BMI 18.2. EYES: Denies any trouble with vision. Wears glasses. HEENT: No difficulties with hearing. No nosebleeds. No difficulty swallowing. RESPIRATORY: Denies pneumonia. Denies any troubles with breathing or dyspnea on exertion. CARDIOVASCULAR: Denies any chest pain, palpitations, or recent heart attacks. GASTROINTESTINAL: Denies fatty food intolerance. Denies change in bowel habits and gas bloat. Has had a eventful colonoscopy with syncopal episodes. GENITOURINARY: Has increased urinary frequency and urinary incontinence. Has postop nausea vomiting. NEUROLOGICAL: Denies any numbness or tingling along the distal extremities. No seizure disorders or headaches. MUSCULOSKELETAL: Denies any back pain, stiffness or joint arthritis. SKIN: No current skin cancer. No rash. PSYCHIATRIC: History of CVA. No neurological deficits. ENDOCRINE: Denies current thyroid disorders. Denies any blood sugar glucose intolerance. HEME/LYMPHATIC: Denies any lumps and bumps around the neck. No recent deep venous thrombosis. ALLERGY/IMMUNOLOGY: No immunoglobulin therapy. No immune deficiencies. BREAST: Denies current breast lumps, pain or nipple discharge. PHYSICAL EXAM: VITALS: Reviewed CONSTITUTIONAL: Well developed and in no acute distress. EYES: Conjuctivae without sclera icterus. Extraocular movements grossly intact. HEAD, EARS, NOSE, THROAT: Moist buccal mucosa. Head is atraumatic, normocephalic. Hears conversational speech. No nasal drainage. NECK: Supple. No JV distention. No thyroidomegaly. RESPIRATORY: Non-labored respirations and equal bilateral excursions. No gross wheezes. CARDIOVASCULAR: Palpable 2+ radial pulses. ABDOMEN: Scaphoid. No peritonitis. LYMPH: No neck lymphadenopathy. MUSCULOSKELETAL: No clubbing cyanosis or edema SKIN: Warm and well perfused with good skin turgor. NEUROLOGIC: Cranial nerves II through XII grossly intact. No focal or lateralizing signs. PSYCH: Appropriate affect. Alert and oriented to person, place and time. Displays appropriate insight. CLINCAL LABS: Reviewed. WBC normal. Hemoglobin normal. Urinalysis demonstrates moderate pyuria with blood. Urine nitrate negative. Microbiology pending at this time. IMAGING: Independently reviewed. CT of the abdomen pelvis on 11/19/2024 independent reviewed demonstrates moderate fecal burden. Moderate air within the bladder without instrumentation noted. Severe sigmoid diverticulosis. 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 RECORDS: previous old records reviewed colonoscopy from April 2023 reviewed demonstrates colonoscopy to the sigmoid colon discontinued due to severe tortuosity and severe sigmoid diverticulosis. Barium enema 2022 demonstrates discontinued procedure due to patient. Medical records demonstrate patient having syncopal episode immediately following colonoscopy ASSESSMENT: 1. Abnormal CT scan for bladder fistula 2. Moderate pneumoperitoneum within bladder without instrumentation 3. Severe diverticulosis 4. Severe constipation 5. Abnormal CT scan for hydrops gallbladder asymptomatic PLAN: 1. Patient at the time of my assessment denied any moderate abdominal pain. Her main concern includes chronic urinary frequency. 2. Review of her CT scan and medical history, patient reports having syncopal episodes after colonoscopy and did not want any colonoscopy or barium enema. Alternatives to evaluate for bladder fistula include urology consultation for possible cystoscopy due to moderate air within the bladder. 3. At this time, pending neurologist consultation. ADVANCE DIRECTIVE: CODE STATUS in chart. Thank you for this kind consultation. Past Medical History Past Medical History: CVA/TIA, Hypertension, Osteoarthritis (OA) Additional Past Medical History / Comment(s): possible TIA 2015, hx fx vertebrae in back., back pain, osteoporosis. History of Any Multi-Drug Resistant Organisms: None Reported Past Surgical History: Hysterectomy, Joint Replacement Additional Past Surgical History / Comment(s): colonoscopy, total rt knee Past Anesthesia/Blood Transfusion Reactions: Previous Problems w/ Anesthesia, Postoperative Nausea & Vomiting (PONV) Additional Past Anesthesia/Blood Transfusion Reaction / Comm: passed out after discharge from colonoscopy and went by ambulance back to the ER. Past Psychological History: No Psychological Hx Reported Smoking Status: Former smoker Past Alcohol Use History: None Reported Additional Past Alcohol Use History / Comment(s): started smoking at age [age],smoked 1/2 ppd, quit in 1999 Past Drug Use History: None Reported - Past Family History Sister(s) Family Medical History: Cancer Additional Family Medical History / Comment(s): pancreatic cancer Mother Family Medical History: Hypertension, Osteoarthritis (OA) Father Additional Family Medical History / Comment(s): panic attacks and alcoholism Medications and Allergies Home Medications Medication Instructions Recorded Confirmed Type HYDROcodone/APAP 7.5-325MG [[place] 1 tab PO BID PRN 03/05/17 11/20/24 History 7.5-325] Cyclobenzaprine [Flexeril] 5 mg PO HS PRN 11/20/24 11/20/24 History Levofloxacin [Levaquin] 750 mg PO HS 11/20/24 11/20/24 History Losartan [Cozaar] 50 mg PO DAILY 11/20/24 11/20/24 History Allergies Allergy/AdvReac Type Severity Reaction Status Date / Time alendronate sodium Allergy Unknown Verified 11/20/24 18:17 [From Fosamax] ceftriaxone [From Rocephin] Allergy Unknown Verified 11/20/24 18:17 Penicillins Allergy Unknown Verified 11/20/24 18:17 Kflaxpk-SPX-LcK Reductase Allergy Unknown Verified 11/20/24 18:17 Inhibitor [Iecsdou-Ykh-Hcg Reductase Inhibitor] sulfamethoxazole Allergy facial Verified 11/20/24 18:17 [From Bactrim] swelling trimethoprim [From Bactrim] Allergy facial Verified 11/20/24 18:17 swelling amoxicillin AdvReac mouth Verified 11/20/24 18:17 blisters bacitracin AdvReac blisters Verified 11/20/24 18:17 [From Neosporin ([id number])] bacitracin zinc AdvReac blisters Verified 11/20/24 18:17 [From Neosporin (ymo-rme-sogax)] neomycin sulfate AdvReac blisters Verified 11/20/24 18:17 [From Neosporin ([id number]-upz-gqjul)] polymyxin B AdvReac blisters Verified 11/20/24 18:17 [From Neosporin ([id number])] Surgical - Exam Vital Signs Temp Pulse Resp BP Pulse Ox 97.5 F L 80 18 132/76 100 11/20/24 16:37 11/20/24 16:37 11/20/24 16:37 11/20/24 16:37 11/20/24 16:37 Results - Labs 11/21/24 04:09 11/21/24 04:09 Abnormal Lab Results - Last 24 Hours (Table) 11/20/24 11/20/24 11/21/24 Range/Units 19:38 19:43 04:09 RBC 3.95 L (4.10-5.20) X 10*6/uL MCV 100.0 H (80.0-97.0) FL MCHC 31.1 L (32.0-37.0) g/dL Sodium 136 L (137-145) mmol/L BUN 19 H (7-17) mg/dL Est GFR (CKD-EPI) (>=60) Albumin (3.8-4.9) g/dL Albumin/Globulin Ratio (1.60-3.17) Ratio Urine Appearance Turbid H (Clear) Urine Protein 1+ H (Negative) Urine Ketones 1+ H (Negative) Urine Blood Moderate H (Negative) Ur Leukocyte Esterase Large H (Negative) Urine RBC 61 H (0-5) /hpf Urine WBC >182 H (0-5) /hpf Urine WBC Clumps Few H (None) /hpf Ur Squamous Epith Cells 5 H (0-4) /hpf Urine Mucus Occasional H (None) /hpf 11/21/24 Range/Units 04:09 RBC (4.10-5.20) X 10*6/uL MCV (80.0-97.0) FL MCHC (32.0-37.0) g/dL Sodium (137-145) mmol/L BUN (7-17) mg/dL Est GFR (CKD-EPI) 55 L (>=60) Albumin 3.7 L (3.8-4.9) g/dL Albumin/Globulin Ratio 1.32 L (1.60-3.17) Ratio Urine Appearance (Clear) Urine Protein (Negative) Urine Ketones (Negative) Urine Blood (Negative) Ur Leukocyte Esterase (Negative) Urine RBC (0-5) /hpf Urine WBC (0-5) /hpf Urine WBC Clumps (None) /hpf Ur Squamous Epith Cells (0-4) /hpf Urine Mucus (None) /hpf Diabetes panel 11/20/24 11/21/24 Range/Units 19:43 04:09 Sodium 136 L 139 (137-145) mmol/L Potassium 3.9 3.8 (3.5-5.1) mmol/L Chloride 100 103 (98-107) mmol/L Carbon Dioxide 27 24.8 (22-30) mmol/L BUN 19 H 15.4 (7-17) mg/dL Creatinine 1.01 1.0 (0.52-1.04) mg/dL Glucose 94 88 (74-99) mg/dL Calcium 9.6 9.3 (8.4-10.2) mg/dL AST 25 23 (14-36) U/L ALT 14 12 (4-34) U/L Alkaline Phosphatase 89 73 (38-126) U/L Total Protein 7.6 6.5 (6.3-8.2) g/dL Albumin 4.3 3.7 L (3.5-5.0) g/dL Calcium panel 11/20/24 11/21/24 Range/Units 19:43 04:09 Calcium 9.6 9.3 (8.4-10.2) mg/dL Albumin 4.3 3.7 L (3.5-5.0) g/dL Pituitary panel 11/20/24 11/21/24 Range/Units 19:43 04:09 Sodium 136 L 139 (137-145) mmol/L Potassium 3.9 3.8 (3.5-5.1) mmol/L Chloride 100 103 (98-107) mmol/L Carbon Dioxide 27 24.8 (22-30) mmol/L BUN 19 H 15.4 (7-17) mg/dL Creatinine 1.01 1.0 (0.52-1.04) mg/dL Glucose 94 88 (74-99) mg/dL Calcium 9.6 9.3 (8.4-10.2) mg/dL Adrenal panel 11/20/24 11/21/24 Range/Units 19:43 04:09 Sodium 136 L 139 (137-145) mmol/L Potassium 3.9 3.8 (3.5-5.1) mmol/L Chloride 100 103 (98-107) mmol/L Carbon Dioxide 27 24.8 (22-30) mmol/L BUN 19 H 15.4 (7-17) mg/dL Creatinine 1.01 1.0 (0.52-1.04) mg/dL Glucose 94 88 (74-99) mg/dL Calcium 9.6 9.3 (8.4-10.2) mg/dL Total Bilirubin 0.8 0.6 (0.2-1.3) mg/dL AST 25 23 (14-36) U/L ALT 14 12 (4-34) U/L Alkaline Phosphatase 89 73 (38-126) U/L Total Protein 7.6 6.5 (6.3-8.2) g/dL Albumin 4.3 3.7 L (3.5-5.0) g/dL
[2024-11-21] MEDS: LEVOFLOXACIN 250MG-D5W PMX 250 MG in DEXTROSE/WATER 1 50ML.BAG IVPB SCH (20:44)
--- NOTE | 2024-11-22 09:41 | P.CONS ---
History of Present Illness - Reason for Consult Consult date: 11/21/24 Recurrent UTI Requesting physician: Tan Almanza - Chief Complaint Urinary burning and frequency x days - History of Present Illness Patient is a 89-year-old female with a past medical history significant for CVA TIA hypertension osteoarthritis presenting to the hospital for evaluation of urinary frequency and burning in this patient symptom has been going on for the last few days patient mention has been treated with 2 different courses of antibiotic without any improvement patient denies high-grade fever or any chills did have some suprapubic discomfort and urinary frequency and burning but no hematuria nausea vomiting abdominal pain no diarrhea on presentation the hospital the patient was afebrile he was mildly tachycardic but not hypotensive or hypoxic patient did have a white count 6.23 creatinine is 1.0 urine has been positive with large ascites. 2 WBC culture have been obtained patient did have multiple antibiotic allergies she was started on Levaquin infectious disease was consulted for further management of antibiotic therapy Past Medical History Past Medical History: CVA/TIA, Hypertension, Osteoarthritis (OA) Additional Past Medical History / Comment(s): possible TIA 2015, hx fx vertebrae in back., back pain, osteoporosis. History of Any Multi-Drug Resistant Organisms: None Reported Past Surgical History: Hysterectomy, Joint Replacement Additional Past Surgical History / Comment(s): colonoscopy, total rt knee Past Anesthesia/Blood Transfusion Reactions: Previous Problems w/ Anesthesia, Postoperative Nausea & Vomiting (PONV) Additional Past Anesthesia/Blood Transfusion Reaction / Comm: passed out after discharge from colonoscopy and went by ambulance back to the ER. Past Psychological History: No Psychological Hx Reported Smoking Status: Former smoker Past Alcohol Use History: None Reported Additional Past Alcohol Use History / Comment(s): started smoking at age 20,smoked 1/2 ppd, quit in 1999 Past Drug Use History: None Reported - Past Family History Sister(s) Family Medical History: Cancer Additional Family Medical History / Comment(s): pancreatic cancer Mother Family Medical History: Hypertension, Osteoarthritis (OA) Father Additional Family Medical History / Comment(s): panic attacks and alcoholism Medications and Allergies Home Medications Medication Instructions Recorded Confirmed Type HYDROcodone/APAP 7.5-325MG [[place] 1 tab PO BID PRN 03/05/17 11/20/24 History 7.5-325] Cyclobenzaprine [Flexeril] 5 mg PO HS PRN 11/20/24 11/20/24 History Levofloxacin [Levaquin] 750 mg PO HS 11/20/24 11/20/24 History Losartan [Cozaar] 50 mg PO DAILY 11/20/24 11/20/24 History Allergies Allergy/AdvReac Type Severity Reaction Status Date / Time alendronate sodium Allergy Unknown Verified 11/20/24 18:17 [From Fosamax] ceftriaxone [From Rocephin] Allergy Unknown Verified 11/20/24 18:17 Penicillins Allergy Unknown Verified 11/20/24 18:17 Tzatczn-OSG-RnS Reductase Allergy Unknown Verified 11/20/24 18:17 Inhibitor [Nzqacii-Bao-Isq Reductase Inhibitor] sulfamethoxazole Allergy facial Verified 11/20/24 18:17 [From Bactrim] swelling trimethoprim [From Bactrim] Allergy facial Verified 11/20/24 18:17 swelling amoxicillin AdvReac mouth Verified 11/20/24 18:17 blisters bacitracin AdvReac blisters Verified 11/20/24 18:17 [From Neosporin ([id number]-[id number])] bacitracin zinc AdvReac blisters Verified 11/20/24 18:17 [From Neosporin (lrj-khi-czbtz)] neomycin sulfate AdvReac blisters Verified 11/20/24 18:17 [From Neosporin (vrz-ukj-kvacl)] polymyxin B AdvReac blisters Verified 11/20/24 18:17 [From Neosporin (obo-yxp-bqeuf)] Physical Exam Vitals: Vital Signs Temp Pulse Pulse Resp BP BP Pulse Ox 11/21/24 12:43 97.7 F 111 H 17 132/82 98 11/21/24 08:00 98.1 F 110 H 16 135/74 98 11/21/24 01:02 97.4 F L 90 17 146/73 98 11/20/24 23:44 97.8 F 90 17 155/85 96 11/20/24 23:00 98.4 F 83 16 151/71 97 11/20/24 22:32 97.4 F L 90 16 138/55 96 11/20/24 21:07 97.9 F 88 18 164/100 97 11/20/24 18:18 97.7 F 94 20 127/77 96 11/20/24 16:37 97.5 F L 80 18 132/76 100 Intake and Output 11/21/24 11/21/24 11/21/24 06:59 14:59 22:59 Intake Total 1560 Balance 1560 Intake: Oral 1560 Other: # Voids 1 5 Weight 54.431 kg 54.431 kg Results CBC & Chem 7: 11/21/24 04:09 11/21/24 04:09 Labs: Abnormal Lab Results - Last 24 Hours (Table) 11/20/24 11/20/24 11/21/24 Range/Units 19:38 19:43 04:09 RBC 3.95 L (4.10-5.20) X 10*6/uL MCV 100.0 H (80.0-97.0) FL MCHC 31.1 L (32.0-37.0) g/dL Sodium 136 L (137-145) mmol/L BUN 19 H (7-17) mg/dL Est GFR (CKD-EPI) (>=60) Albumin (3.8-4.9) g/dL Albumin/Globulin Ratio (1.60-3.17) Ratio Urine Appearance Turbid H (Clear) Urine Protein 1+ H (Negative) Urine Ketones 1+ H (Negative) Urine Blood Moderate H (Negative) Ur Leukocyte Esterase Large H (Negative) Urine RBC 61 H (0-5) /hpf Urine WBC >182 H (0-5) /hpf Urine WBC Clumps Few H (None) /hpf Ur Squamous Epith Cells 5 H (0-4) /hpf Urine Mucus Occasional H (None) /hpf 11/21/24 Range/Units 04:09 RBC (4.10-5.20) X 10*6/uL MCV (80.0-97.0) FL MCHC (32.0-37.0) g/dL Sodium (137-145) mmol/L BUN (7-17) mg/dL Est GFR (CKD-EPI) 55 L (>=60) Albumin 3.7 L (3.8-4.9) g/dL Albumin/Globulin Ratio 1.32 L (1.60-3.17) Ratio Urine Appearance (Clear) Urine Protein (Negative) Urine Ketones (Negative) Urine Blood (Negative) Ur Leukocyte Esterase (Negative) Urine RBC (0-5) /hpf Urine WBC (0-5) /hpf Urine WBC Clumps (None) /hpf Ur Squamous Epith Cells (0-4) /hpf Urine Mucus (None) /hpf Assessment and Plan (1) Allergy to multiple antibiotics Current Visit: Yes Status: Acute Code(s): Z88.1 - ALLERGY STATUS TO OTHER ANTIBIOTIC AGENTS SNOMED Code(s): 013810533 (2) Urinary tract infection Current Visit: Yes Status: Acute Code(s): N39.0 - URINARY TRACT INFECTION, SITE NOT SPECIFIED SNOMED Code(s): 32591843 Plan: 1patient presented to hospital with urinary burning frequency failing outpatient antibiotic therapy positive UA concerning for symptomatic UTI likely from fluid gram-negative pathogen. 2patient did have a history of recurrent UTI apparently the patient did have a CT that was concerning for possible colovesical fistula for the patient is being evaluated by general surgery and urology 3for now continue with the Levaquin while waiting for the culture to finalize. We will follow on clinical condition and cultures to further adjust medication if needed Thank you for this consultation we will follow the patient along with you Dictation was produced using [employer] dictation software. please excuse any grammatical, word or spelling errors. Time with Patient: Greater than 30
--- NOTE | 2024-11-22 11:36 | US ---
EXAMINATION TYPE: US kidneys/renal and bladder DATE OF EXAM: 11/22/2024 COMPARISON: CT 11/19/24 CLINICAL INDICATION: Female, 89 years old with history of Recurrent UTI; Fistula involvement of the b ladder TECHNIQUE: Grayscale imaging of the bilateral kidneys and urinary bladder: FINDINGS: EXAM MEASUREMENTS: Right Kidney: 8.1 x 3.7 x 3.6 cm Left Kidney: 6.5 x 3.8 x 3.4 cm Right Kidney: No hydronephrosis or masses seen Left Kidney: Limited visualization Bladder: Area imaged There is no evidence for hydronephrosis at this point in time. No nephrolithiasis is seen. Cortical medullary differentiation is maintained bilaterally. No masses are identified. The urinary bladder is is not visualized. IMPRESSION: Limited examination due to overlying bowel gas. 1. No evidence for hydronephrosis or nephrolithiasis. 2. Nonvisualization of the urinary bladder. [facility], , 11/22/2024 11:34 AM
--- NOTE | 2024-11-22 11:38 | P.GSCN ---
History of Present Illness Consult date: 11/22/24 History of present illness: 89 yo female in the hospital with recurrent uti and pelvic pain. 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 We were asked to see the patient. The patient has been having multiple infections over the last 6 months. She has never seen a urologist. She does have diverticular disease of the colon and could not have successful colonoscopy a few years ago. He does have chronic constipation. She does admit to dysuria. There is no hematuria. There is pneumaturia. She has not had previous instrumentation prior to this hospitalization. Review of Systems All systems: negative - Constitutional Denies fever, Denies weight loss - EENT Eyes: denies blurred vision Ears, nose, mouth and throat: Denies dysphagia - Cardiovascular Denies chest pain, Denies shortness of breath - Respiratory Denies cough, Denies 7 - Gastrointestinal Reports as per HPI - Genitourinary Genitourinary: Denies dysuria, Denies hematuria - Integumentary Denies rash, Denies unusual bruising - Neurological Denies headaches, Denies syncope - Hematologic/Lymphatic Denies easy bleeding, Denies easy bruising Past Medical History Past Medical History: CVA/TIA, Hypertension, Osteoarthritis (OA) Additional Past Medical History / Comment(s): possible TIA 2015, hx fx vertebrae in back., back pain, osteoporosis. History of Any Multi-Drug Resistant Organisms: None Reported Past Surgical History: Hysterectomy, Joint Replacement Additional Past Surgical History / Comment(s): colonoscopy, total rt knee Past Anesthesia/Blood Transfusion Reactions: Previous Problems w/ Anesthesia, Postoperative Nausea & Vomiting (PONV) Additional Past Anesthesia/Blood Transfusion Reaction / Comm: passed out after discharge from colonoscopy and went by ambulance back to the ER. Past Psychological History: No Psychological Hx Reported Smoking Status: Former smoker Past Alcohol Use History: None Reported Additional Past Alcohol Use History / Comment(s): started smoking at age 20,smoked 1/2 ppd, quit in 1999 Past Drug Use History: None Reported - Past Family History Sister(s) Family Medical History: Cancer Additional Family Medical History / Comment(s): pancreatic cancer Mother Family Medical History: Hypertension, Osteoarthritis (OA) Father Additional Family Medical History / Comment(s): panic attacks and alcoholism Medications and Allergies Home Medications Medication Instructions Recorded Confirmed Type HYDROcodone/APAP 7.5-325MG [[facility] 1 tab PO BID PRN 03/05/17 11/20/24 History 7.5-325] Cyclobenzaprine [Flexeril] 5 mg PO HS PRN 11/20/24 11/20/24 History Levofloxacin [Levaquin] 750 mg PO HS 11/20/24 11/20/24 History Losartan [Cozaar] 50 mg PO DAILY 11/20/24 11/20/24 History Allergies Allergy/AdvReac Type Severity Reaction Status Date / Time alendronate sodium Allergy Unknown Verified 11/20/24 18:17 [From Fosamax] ceftriaxone [From Rocephin] Allergy Unknown Verified 11/20/24 18:17 Penicillins Allergy Unknown Verified 11/20/24 18:17 Jtfkeop-SVS-BhV Reductase Allergy Unknown Verified 11/20/24 18:17 Inhibitor [Dxjoewm-Sey-Drf Reductase Inhibitor] sulfamethoxazole Allergy facial Verified 11/20/24 18:17 [From Bactrim] swelling trimethoprim [From Bactrim] Allergy facial Verified 11/20/24 18:17 swelling amoxicillin AdvReac mouth Verified 11/20/24 18:17 blisters bacitracin AdvReac blisters Verified 11/20/24 18:17 [From Neosporin ([id number])] bacitracin zinc AdvReac blisters Verified 11/20/24 18:17 [From Neosporin ([id number])] neomycin sulfate AdvReac blisters Verified 11/20/24 18:17 [From Neosporin ([id number]-[id number])] polymyxin B AdvReac blisters Verified 11/20/24 18:17 [From Neosporin ([id number])] Surgical - Exam Vital Signs Temp Pulse Resp BP Pulse Ox 97.5 F L 80 18 132/76 100 11/20/24 16:37 11/20/24 16:37 11/20/24 16:37 11/20/24 16:37 11/20/24 16:37 - General well developed, well nourished, no distress - Eyes normal ocular movement, no icteric - ENT no hearing loss, no congestion - Neck no masses, trachea midline - Respiratory normal respiratory effort, clear to auscultation - Abdomen Abdomen: soft, non tender, no guarding, no rigid, no rebound - Integumentary no rash, no abnormal pigmentation - Neurologic no disoriented, no combative - Psychiatric oriented to time, oriented to person, oriented to place, speech is normal, memory intact Results - Labs 11/21/24 04:09 11/21/24 04:09 Abnormal Lab Results - Last 24 Hours (Table) 11/21/24 11/21/24 Range/Units 04:09 04:09 RBC 3.95 L (4.10-5.20) X 10*6/uL MCV 100.0 H (80.0-97.0) FL MCHC 31.1 L (32.0-37.0) g/dL Est GFR (CKD-EPI) 55 L (>=60) Albumin 3.7 L (3.8-4.9) g/dL Albumin/Globulin Ratio 1.32 L (1.60-3.17) Ratio Microbiology - Last 24 Hours (Table) 11/20/24 19:38 Urine Culture - Final Urine,Voided 11/20/24 19:43 Blood Culture - Preliminary Blood Diabetes panel 11/21/24 Range/Units 04:09 Sodium 139 (135-145) mmol/L Potassium 3.8 (3.5-5.5) mmol/L Chloride 103 (96-109) mmol/L Carbon Dioxide 24.8 (21.6-31.8) mmol/L BUN 15.4 (9.0-27.0) mg/dL Creatinine 1.0 (0.6-1.5) mg/dL Glucose 88 (70-110) mg/dL Calcium 9.3 (8.7-10.3) mg/dL AST 23 (13-35) U/L ALT 12 (8-44) U/L Alkaline Phosphatase 73 (41-126) U/L Total Protein 6.5 (6.2-8.2) g/dL Albumin 3.7 L (3.8-4.9) g/dL Calcium panel 11/21/24 Range/Units 04:09 Calcium 9.3 (8.7-10.3) mg/dL Albumin 3.7 L (3.8-4.9) g/dL Pituitary panel 11/21/24 Range/Units 04:09 Sodium 139 (135-145) mmol/L Potassium 3.8 (3.5-5.5) mmol/L Chloride 103 (96-109) mmol/L Carbon Dioxide 24.8 (21.6-31.8) mmol/L BUN 15.4 (9.0-27.0) mg/dL Creatinine 1.0 (0.6-1.5) mg/dL Glucose 88 (70-110) mg/dL Calcium 9.3 (8.7-10.3) mg/dL Adrenal panel 11/21/24 Range/Units 04:09 Sodium 139 (135-145) mmol/L Potassium 3.8 (3.5-5.5) mmol/L Chloride 103 (96-109) mmol/L Carbon Dioxide 24.8 (21.6-31.8) mmol/L BUN 15.4 (9.0-27.0) mg/dL Creatinine 1.0 (0.6-1.5) mg/dL Glucose 88 (70-110) mg/dL Calcium 9.3 (8.7-10.3) mg/dL Total Bilirubin 0.6 (0.3-1.2) mg/dL AST 23 (13-35) U/L ALT 12 (8-44) U/L Alkaline Phosphatase 73 (41-126) U/L Total Protein 6.5 (6.2-8.2) g/dL Albumin 3.7 L (3.8-4.9) g/dL - Imaging CT scan - abdomen: report reviewed, image reviewed CT scan - pelvis: report reviewed, image reviewed Assessment and Plan Assessment: 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 The patient will most likely need an abdominal exploration with colectomy, probable colostomy. the bladder will usually heal with carroll catheter maintenance for 10-14 days post op Time with Patient: Greater than 30
--- NOTE | 2024-11-22 11:40 | P.PCN ---
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 By CT scan she has a colovesical fistula. She does describe pneumaturia. I will do cystoscopy to rule out intravesical pathology Description of Procedure: At the bedside the patient is prepped and draped sterilely. I introduced the cystoscope into the bladder. There is a large amount of air in the bladder. I remove the cystoscope and drained the bladder with a Arias catheter. I reintroduced the cystoscope and inspect the bladder in its entirety. In the left hemitrigone and left lower the bladder there is marked edema. I cannot see a distinct hole however given the amount of edema I am sure with the pneumaturia that there is a fistula into the bladder. There is no intravesical pathology other than the edema associated with the fistula. 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
--- NOTE | 2024-11-22 13:38 | P.PN ---
Subjective Progress Note Date: 11/22/24 89-year-old lady with past medical history significant for hypertension, CVA who came to the ER for left flank pain. Patient was seen in the ER 24 hours ago as well at which time she was advised to stay in the hospital and get IV antibiotics but patient refused. Apparently patient was all right couple of days ago when she started having left flank pain. Patient was complaining of burning micturition, there was complaint of any urinary hesitancy and increased frequency. Patient went to an urgent care and had a UA done and was later called by urgent care stating that she has a UTI and needs to go to the ER. In the ER patient CT abdominal pelvis done that showed scattered colonic diverticulosis, there was moderate circumferential wall thickening of the sigmoid colon possible chronic diverticulitis versus neoplasm, there was also evidence of fistula tract extended to lateral fornix of the vagina. ER initially talked with with patient regarding staying in the hospital getting seen by surgeon but patient refused and left on oral antibiotics. Patient later came back to the ER within 24 hours because of persistent left flank pain and constipation. Initial lab work done in the ER showed WBC 9.6, hemoglobin 13.4, platelet count 199, sodium 133, potassium 3.9, BUN 19, creatinine 1.01, AST 25, ALT 14, UA done showed large amount of leukocyte Estrace, urine WBC 182 Patient admitted to internal medicine service 11/22. Patient seen and examined. General surgery consulted, recommended urology evaluation. States abdominal pain has improved. Denies any blood in the stools.. REVIEW OF SYSTEMS: CONSTITUTIONAL: No fever, no malaise,. CARDIOVASCULAR: No chest pain, no palpitations, no syncope. PULMONARY: No shortness of breath, no cough, GASTROINTESTINAL: No diarrhea, no nausea, no vomiting, no abdominal pain. NEUROLOGICAL: No headaches, no weakness, PHYSICAL EXAMINATION: GENERAL: The patient is alert and oriented x3, not in any acute distress. Well developed, well nourished. HEENT: Pupils are round and equally reacting to light. EOMI. No scleral icterus. No conjunctival pallor. Normocephalic, atraumatic. No pharyngeal erythema. No thyromegaly. CARDIOVASCULAR: S1 and S2 present. No murmurs, rubs, or gallops. PULMONARY: Chest is clear to auscultation, no wheezing or crackles. ABDOMEN: Soft, nontender, nondistended, normoactive bowel sounds. No palpable organomegaly. MUSCULOSKELETAL: No joint swelling or deformity. EXTREMITIES: No cyanosis, clubbing, or pedal edema. NEUROLOGICAL: Gross neurological examination did not reveal any focal deficits. SKIN: No rashes. Assessment and plan Complicated UTI Colovesical fistula Constipation Monitor vital signs Monitor CBC Monitor CMP Follow-up on blood cultures follow urine culture Continue Levaquin General Surgery recommended urology evaluation ID following Labs and medication were reviewed.. Continue same treatment. Continue with symptomatic treatment. Resume home medication. Monitor labs and vitals. DVT and GI prophylaxis. Further recommendations as per clinical course of the patient Dictation was produced using [employer] dictation software. please excuse any grammatical, word or spelling errors. Objective - Vital Signs Vital signs: Vital Signs Temp 97.9 F 11/22/24 07:02 Pulse 85 11/22/24 07:02 Resp 16 11/22/24 07:02 BP 146/68 11/22/24 07:02 Pulse Ox 93 L 11/22/24 07:02 FiO2 Intake & Output 11/21/24 11/22/24 11/22/24 18:59 06:59 18:59 Intake Total 1800 240 200 Balance 1800 240 200 Weight 54.431 kg Intake: Oral 1800 240 200 Other: # Voids 5 1 - Labs CBC & Chem 7: 11/21/24 04:09 11/21/24 04:09 Labs: Abnormal Lab Results - Last 24 Hours (Table) 11/21/24 11/21/24 Range/Units 04:09 04:09 RBC 3.95 L (4.10-5.20) X 10*6/uL MCV 100.0 H (80.0-97.0) FL MCHC 31.1 L (32.0-37.0) g/dL Est GFR (CKD-EPI) 55 L (>=60) Albumin 3.7 L (3.8-4.9) g/dL Albumin/Globulin Ratio 1.32 L (1.60-3.17) Ratio Microbiology - Last 24 Hours (Table) 11/20/24 19:38 Urine Culture - Final Urine,Voided 11/20/24 19:43 Blood Culture - Preliminary Blood
--- NOTE | 2024-11-22 15:23 | P.PN ---
Subjective Progress Note Date: 11/22/24 CHIEF COMPLAINT: Incontinence urinary tract infection HISTORY OF PRESENT ILLNESS: The patient is a 89-year-old female admitted due to recurrent urinary tract infection and air within the bladder. Patient completed a cystoscopy earlier this morning. Patient reports that she was told nothing was found for malignancy. Her daughters are at bedside. Patient now recalls that she may have had stool in her bladder however dismisses blood. She denies any abdominal pain. She complains mostly of left flank pain at the "kidney". Patient does not want colostomy bag. She is seeking other options. REVIEW OF ORGAN SYSTEMS: No fevers or chills. Underweight, BMI 18.2. PHYSICAL EXAM: VITALS: Reviewed CONSTITUTIONAL: Well developed and in no acute distress. EYES: Conjuctivae without sclera icterus. Extraocular movements grossly intact. HEAD, EARS, NOSE, THROAT: Moist buccal mucosa. Head is atraumatic, normocephalic. Hears conversational speech. No nasal drainage. RESPIRATORY: Non-labored respirations and equal bilateral excursions. No gross wheezes. CARDIOVASCULAR: Palpable 2+ radial pulses. ABDOMEN: Scaphoid. Nontender. MUSCULOSKELETAL: No clubbing cyanosis or edema SKIN: Warm and well perfused with good skin turgor. NEUROLOGIC: Cranial nerves II through XII grossly intact. No focal or lateralizing signs. PSYCH: Appropriate affect. Alert and oriented to person, place and time. Displays appropriate insight. CLINCAL LABS: Reviewed. WBC normal. REPORTS: Cystoscopy report reviewed demonstrates erythema of the bladder. No malignancy identified. No hole within about are identified. ASSESSMENT: 1. Abnormal CT scan for bladder fistula 2. Moderate pneumoperitoneum within bladder without instrumentation 3. Severe diverticulosis 4. Severe constipation 5. Colovesical fistula. PLAN: 1. Extended discussion with the patient including family at bedside reviewed i ncluding options of inpatient diverting colostomy versus colectomy at a different admission. At this time, patient does not want a colostomy bag and wants an alternative of colectomy. 2. Patient reports seeing her services advisor Dr. Godoy in March of last year. Will need cardiac risk assessment prior to surgical intervention. 3. Patient reports having bowel movement however per CT scan she had severe constipation. Recommend bowel management inpatient as well as outpatient. 4. Patient reports that she is scheduled to go on vacation as her symptoms has been ongoing for at least 3+ weeks. 5. Patient agreed to follow-up as outpatient and may be discharged once medically stable. Objective - Vital Signs Vital signs: Vital Signs Temp 97.4 F L 11/22/24 14:00 Pulse 85 11/22/24 14:00 Resp 17 11/22/24 14:00 BP 133/82 11/22/24 14:00 Pulse Ox 96 11/22/24 14:00 FiO2 Intake & Output 11/21/24 11/22/24 11/22/24 18:59 06:59 18:59 Intake Total 1800 240 200 Balance 1800 240 200 Weight 54.431 kg Intake: Oral 1800 240 200 Other: Voiding Method Toilet # Voids 5 1 - Labs CBC & Chem 7: 11/21/24 04:09 11/21/24 04:09 Labs: Microbiology - Last 24 Hours (Table) 11/20/24 19:38 Urine Culture - Final Urine,Voided 11/20/24 19:43 Blood Culture - Preliminary Blood
--- NOTE | 2024-11-22 15:55 | P.PN ---
Subjective Progress Note Date: 11/22/24 Principal diagnosis: Reason for follow-up is recurrent UTI Patient is a 89-year-old female with a past medical history significant for CVA TIA hypertension osteoarthritis presenting to the hospital for evaluation of urinary frequency and burning with concern for colovesical fistula did have abnormality seen on cystoscopy. On today's evaluation that is 11/22/2024, Patient is afebrile patient is currently on room air and denies having any shortness of breath, the patient denies any chest pain or cough, the patient denies any nausea vomiting did not have any abdominal pain and no diarrhea. No new lab has been obtained today cultures currently pending Objective - Vital Signs Vital signs: Vital Signs Temp 97.4 F L 11/22/24 14:00 Pulse 85 11/22/24 14:00 Resp 17 11/22/24 14:00 BP 133/82 11/22/24 14:00 Pulse Ox 96 11/22/24 14:00 FiO2 Intake & Output 11/21/24 11/22/24 11/22/24 18:59 06:59 18:59 Intake Total 1800 240 200 Balance 1800 240 200 Weight 54.431 kg Intake: Oral 1800 240 200 Other: Voiding Method Toilet # Voids 5 1 - Exam GENERAL DESCRIPTION: An elderly female lying in bed in no distress RESPIRATORY SYSTEM: Unlabored breathing , decreased breath sounds at bases HEART: S1 S2 regular rate and rhythm , ABDOMEN: Soft , no tenderness EXTREMITIES: No edema feet - Labs CBC & Chem 7: 11/21/24 04:09 11/21/24 04:09 Labs: Microbiology - Last 24 Hours (Table) 11/20/24 19:38 Urine Culture - Final Urine,Voided 11/20/24 19:43 Blood Culture - Preliminary Blood Assessment and Plan (1) Allergy to multiple antibiotics Current Visit: Yes Status: Acute Code(s): Z88.1 - ALLERGY STATUS TO OTHER A NTIBIOTIC AGENTS SNOMED Code(s): 007979711 (2) Urinary tract infection Current Visit: Yes Status: Acute Code(s): N39.0 - URINARY TRACT INFECTION, SITE NOT SPECIFIED SNOMED Code(s): 44676243 Plan: 1patient presented to hospital with urinary burning frequency failing outpatient antibiotic therapy positive UA concerning for symptomatic UTI likely from fluid gram-negative pathogen. 2patient did have a history of recurrent UTI apparently the patient did have a CT that was concerning for possible colovesical fistula, patient did have a cystoscopy that has been suspicious for possible fistula 3etiology of recurrent UTIs more likely related to colovesical fistula and without treatment she will be risk for recurrent UTI this was explained to the patient layman term patient is currently being treated with Levaquin pending culture finalization Dictation was produced using [employer] software. please excuse any grammatical, word or spelling errors. Time with Patient: Less than 30
[2024-11-22] MEDS: MAGNESIUM HYDROXIDE 2,400 MG/30 ML CUP PO STA (17:47)
[2024-11-22] MEDS: LACTULOSE 20 GM/30 ML CUP PO SCH (17:47)
[2024-11-22] MEDS: CYCLOBENZAPRINE 5 MG TAB PO PRN (23:31)
[2024-11-23 08:49] LABS: Basophils # (A) 0.04 X 10*3/uL (0.00-0.10); Basophils % (A) 0.5 %; Eosinophils # (A) 0.02 X 10*3/uL (0.04-0.35); Eosinophils % (A) 0.3 %; HCT 39.3 % (37.2-46.3); HGB 12.8 g/dL (12.0-15.0); Lymphocytes # (A) 0.93 X 10*3/uL (0.90-5.00); Lymphocytes % (A) 12.6 %; MCH 31.5 pg (27.0-32.0); MCHC 32.6 g/dL (32.0-37.0); MCV 96.8 FL (80.0-97.0); Mean Platelet Volume 10.7 FL (9.5-12.2); Monocytes # (A) 0.46 X 10*3/uL (0.20-1.00); Monocytes % (A) 6.2 %; NRBC Per 100 WBC 0 X 10*3/uL (0.00-0.01); Neutrophils # (A) 5.89 X 10*3/uL (1.80-7.70); Platelet Count 202 X 10*3/uL (140-440); RBC 4.06 X 10*6/uL (4.10-5.20); RDW 13.1 % (11.5-14.5); WBC 7.37 X 10*3/uL (4.50-10.00)
[2024-11-23 09:16] LABS: ALT 26 U/L (8-44); AST 45 U/L (13-35); Albumin 3.7 g/dL (3.8-4.9); Albumin/Globulin Ratio 1.28 Ratio (1.60-3.17); Alkaline Phosphatase 85 U/L (41-126); Blood Urea Nitrogen 18.8 mg/dL (9.0-27.0); Calcium 9.1 mg/dL (8.7-10.3); Carbon Dioxide 25.3 mmol/L (21.6-31.8); Chloride 103 mmol/L (96-109); Globulin 2.9 g/dL (1.6-3.3); Glucose 129 mg/dL (70-110); Potassium 4.2 mmol/L (3.5-5.5); Sodium 139 mmol/L (135-145); Total Bilirubin 0.2 mg/dL (0.3-1.2); Total Protein 6.6 g/dL (6.2-8.2)
--- NOTE | 2024-11-23 12:48 | P.PN ---
Subjective Progress Note Date: 11/23/24 CHIEF COMPLAINT: Colovesical fistula HISTORY OF PRESENT ILLNESS: The patient is a 89-year-old female admitted due to recurrent urinary tract infection and air within the bladder. Patient completed a cystoscopy. Patient reports that she is still passing stool and air through her urine. Patient reports having pain in the abdomen last night. She reports no new or increase in pain. Patient reports she does not want colostomy bag. She feels ready for discharge. Her pain is controlled. Tolerating diet. Afebrile. Mildly tachycardic improved. WBC 7.37 PHYSICAL EXAM: VITAL SIGNS: Reviewed GENERAL: Well-developed in no acute distress. HEENT: No sclera icterus. Extraocular movements grossly intact. Moist buccal mucosa. Head is atraumatic, normocephalic. Hears conversational speech. No nasal drainage. NECK: Supple without lymphadenopathy. CHEST: Non-labored respirations and equal bilateral excursions. CARDIOVASCULAR: Palpable 2+ radial pulses. ABDOMEN: Soft. Nondistended. mild tenderness suprapubic and left lower quadrant area MUSCULOSKELETAL: No clubbing or cyanosis. NEUROLOGIC: No focal or lateralizing signs. Cranial nerves II through XII grossly intact. PSYCH: Appropriate affect. Alert and oriented to person, place and time. SKIN: Well perfused. Good skin turgor. ASSESSMENT: 1. Abnormal CT scan for bladder fistula 2. Moderate pneumoperitoneum within bladder without instrumentation 3. Severe diverticulosis 4. Severe constipation 5. Colovesical fistula. PLAN: -Patient can be discharged from surgical standpoint -At this time, patient does not want a colostomy bag and wants an alternative of colectomy. -Patient reports seeing her extrusion die coordinator Dr. Godoy in March of last year. Will need cardiac risk assessment prior to surgical intervention. -Patient agreed to follow-up as outpatient and may be discharged once medically stable. Physician Furnace Clerk note has been reviewed by physician. Signing provider agrees with the documented findings, assessment, and plan of care. Please see additional documentation below per MD CHIEF COMPLAINT: Incontinence urinary tract infection HISTORY OF PRESENT ILLNESS: The patient is a 89-year-old female diagnosed with colovesical fistula. Patient denies any abdominal pain. Patient reports symptoms has been ongoing for 3 weeks to 1 month. Surgical options for diverting ostomy was described however patient declined. She does report chronic constipation with bowel movements once a week. REVIEW OF ORGAN SYSTEMS: No fevers or chills. Underweight, BMI 18.2. PHYSICAL EXAM: VITALS: Reviewed CONSTITUTIONAL: Well developed and in no acute distress. EYES: Conjuctivae without sclera icterus. Extraocular movements grossly intact. HEAD, EARS, NOSE, THROAT: Moist buccal mucosa. Head is atraumatic, normocephalic. Hears conversational speech. No nasal drainage. RESPIRATORY: Non-labored respirations and equal bilateral excursions. No gross wheezes. CARDIOVASCULAR: Palpable 2+ radial pulses. ABDOMEN: Scaphoid. Nontender. MUSCULOSKELETAL: No clubbing cyanosis or edema SKIN: Warm and well perfused with good skin turgor. NEUROLOGIC: Cranial nerves II through XII grossly intact. No focal or lateralizing signs. PSYCH: Appropriate affect. Alert and oriented to person, place and time. Displays appropriate insight. CLINCAL LABS: Reviewed. WBC normal. REPORTS: Ultrasound of the bladder reviewed demonstrates no hydronephrosis. ASSESSMENT: 1. Abnormal CT scan for bladder fistula 2. Moderate pneumoperitoneum within bladder without instrumentation 3. Severe diverticulosis 4. Severe constipation 5. Colovesical fistula. PLAN: 1. Patient reports difficulty with bowel movements and has been placed on laxatives. 2. As patient declined diverting colostomy while inpatient, outpatient colectomy be performed. 3. Patient may be discharged once medically stable Objective - Vital Signs Vital signs: Vital Signs Temp 97.2 F L 11/23/24 06:58 Pulse 100 11/23/24 06:58 Resp 15 11/23/24 06:58 BP 125/72 11/23/24 06:58 Pulse Ox 96 11/23/24 06:58 FiO2 Intake & Output 11/22/24 11/23/24 11/23/24 18:59 06:59 18:59 Intake Total 740 540 Balance 740 540 Intake: Oral 740 540 Other: Voiding Method Toilet Toilet Toilet # Voids 2 - Labs CBC & Chem 7: 11/23/24 03:52 11/23/24 03:52 Labs: Abnormal Lab Results - Last 24 Hours (Table) 11/23/24 11/23/24 Range/Units 03:52 03:52 RBC 4.06 L (4.10-5.20) X 10*6/uL Eosinophils # 0.02 L (0.04-0.35) X 10*3/uL Est GFR (CKD-EPI) 55 L (>=60) Glucose 129 H (70-110) mg/dL Total Bilirubin 0.2 L (0.3-1.2) mg/dL AST 45 H (13-35) U/L Albumin 3.7 L (3.8-4.9) g/dL Albumin/Globulin Ratio 1.28 L (1.60-3.17) Ratio Microbiology - Last 24 Hours (Table) 11/20/24 19:43 Blood Culture - Preliminary Blood
[2024-11-23] MEDS ORDERED: HYDROcodone/APAP 5-325MG 1 EACH TAB PO PRN (16:05)
[2024-11-23] MEDS ORDERED: HYDROmorphone 0.5 MG/0.5 ML SYRINGE IVP PRN (16:05)
[2024-11-23] MEDS: metroNIDAZOLE-NS PMX 500 MG in SALINE 1 100ML.BAG IVPB SCH (16:06)
[2024-11-23] MEDS: PANTOPRAZOLE 40 MG/10 ML VIAL IVP SCH (21:42)
--- NOTE | 2024-11-24 06:05 | PN ---
PROGRESS NOTE DATE OF SERVICE: 11/23/2024 SUBJECTIVE: This is an 89-year-old woman, who was admitted with complicated UTI, colovesical fistula, and constipation, being closely monitored at this time. The patient refused surgery at this time. We will continue to monitor. White count is normalized. The cultures are negative so far. PAST MEDICAL HISTORY: Reviewed. REVIEW OF SYSTEMS: A 14-point review of systems is negative except as mentioned earlier. CURRENT MEDICATIONS: Reviewed. PHYSICAL EXAMINATION: VITAL SIGNS: Pulse is 100, blood pressure is 120/73, respirations 15. HEENT: Conjunctivae normal. NECK: No JVD. CARDIOVASCULAR: S1, S2. RESPIRATIONS: Breath sounds diminished at the bases. ABDOMEN: Mild diffuse tenderness. No guarding. No rigidity. LEGS: No edema. LABORATORY DATA: Reviewed. Cultures are negative. ASSESSMENT: 1. Complicated urinary tract infection. 2. Colovesical fistula. 3. Constipation. 4. Mild hyponatremia present on admission. 5. History of hypertension. 6. History of degenerative joint disease. 7. History of transient ischemic attack. RECOMMENDATIONS AND DISCUSSION: This is an 89-year-old woman, who presented with multiple complex medical issues, we will monitor the patient closely. Continue the current management and continue symptomatic treatment. We will continue with pain management. Continue with antibiotics. Repeat labs. Closely follow with Surgery, Urology, and as well as Infectious Disease. Guarded prognosis. Further recommendations to follow. MMODL / IJN: [id number] /
--- NOTE | 2024-11-24 08:18 | P.PN ---
Subjective Progress Note Date: 11/23/24 Principal diagnosis: Reason for follow-up is recurrent UTI Patient is a 89-year-old female with a past medical history significant for CVA TIA hypertension osteoarthritis presenting to the hospital for evaluation of urinary frequency and burning with concern for colovesical fistula did have abnormality seen on cystoscopy. On today's evaluation that is 11/23/2024, patient has been afebrile, patient is breathing comfortably and is currently on room air, patient denies having any significant cough no chest pain, patient denies nausea vomiting however has been complaining of more abdominal pain and is passing stool through urethra. Patient white count 7.37, creatinine is 1.0 Objective - Vital Signs Vital signs: Vital Signs Temp 97.2 F L 11/23/24 06:58 Pulse 100 11/23/24 06:58 Resp 15 11/23/24 06:58 BP 125/72 11/23/24 06:58 Pulse Ox 96 11/23/24 06:58 FiO2 Intake & Output 11/22/24 11/23/24 11/23/24 18:59 06:59 18:59 Intake Total 740 540 Balance 740 540 Intake: Oral 740 540 Other: Voiding Method Toilet Toilet Toilet # Voids 2 - Exam GENERAL DESCRIPTION: An elderly female lying in bed in no distress RESPIRATORY SYSTEM: Unlabored breathing , decreased breath sounds at bases HEART: S1 S2 regular rate and rhythm , ABDOMEN: Soft , no tenderness EXTREMITIES: No edema feet - Labs CBC & Chem 7: 11/23/24 03:52 11/23/24 03:52 Labs: Abnormal Lab Results - Last 24 Hours (Table) 11/23/24 11/23/24 Range/Units 03:52 03:52 RBC 4.06 L (4.10-5.20) X 10*6/uL Eosinophils # 0.02 L (0.04-0.35) X 10*3/uL Est GFR (CKD-EPI) 55 L (>=60) Glucose 129 H (70-110) mg/dL Total Bilirubin 0.2 L (0.3-1.2) mg/dL AST 45 H (13-35) U/L Albumin 3.7 L (3.8-4.9) g/dL Albumin/Globulin Ratio 1.28 L (1.60-3.17) Ratio Microbiology - Last 24 Hours (Table) 11/20/24 19:43 Blood Culture - Preliminary Blood 11/20/24 19:38 Urine Culture - Final Urine,Voided Assessment and Plan (1) Allergy to multiple antibiotics Current Visit: Yes Status: Acute Code(s): Z88.1 - ALLERGY STATUS TO OTHER ANTIBIOTIC AGENTS SNOMED Code(s): 763741037 (2) Urinary tract infection Current Visit: Yes Status: Acute Code(s): N39.0 - URINARY TRACT INFECTION, SITE NOT SPECIFIED SNOMED Code(s): 06789104 Plan: 1patient presented to hospital with urinary burning frequency failing out patient antibiotic therapy positive UA concerning for symptomatic UTI likely from fluid gram-negative pathogen. 2patient did have a history of recurrent UTI apparently the patient did have a CT that was concerning for possible colovesical fistula, patient did have a cystoscopy that has been suspicious for possible fistula 3etiology of recurrent UTIs more likely related to colovesical fistula and without treatment she will be risk for recurrent UTI, with more pain symptoms and will add Flagyl continue with the Levaquin await surgical recommendation Dictation was produced using [employer] dictation software. please excuse any grammatical, word or spelling errors. Time with Patient: Less than 30
[2024-11-24 09:04] LABS: Basophils # (A) 0.05 X 10*3/uL (0.00-0.10); Basophils % (A) 0.7 %; Eosinophils # (A) 0.13 X 10*3/uL (0.04-0.35); Eosinophils % (A) 1.8 %; HCT 37.5 % (37.2-46.3); HGB 12.5 g/dL (12.0-15.0); Lymphocytes # (A) 1.25 X 10*3/uL (0.90-5.00); Lymphocytes % (A) 17.1 %; MCH 32.3 pg (27.0-32.0); MCHC 33.3 g/dL (32.0-37.0); MCV 96.9 FL (80.0-97.0); Mean Platelet Volume 10.2 FL (9.5-12.2); Monocytes # (A) 0.57 X 10*3/uL (0.20-1.00); Monocytes % (A) 7.8 %; NRBC Per 100 WBC 0 X 10*3/uL (0.00-0.01); Neutrophils # (A) 5.32 X 10*3/uL (1.80-7.70); Neutrophils % (A) 72.5 %; Platelet Count 190 X 10*3/uL (140-440); RBC 3.87 X 10*6/uL (4.10-5.20); RDW 13.2 % (11.5-14.5); WBC 7.33 X 10*3/uL (4.50-10.00)
[2024-11-24 09:21] LABS: ALT 59 U/L (8-44); AST 81 U/L (13-35); Albumin 3.4 g/dL (3.8-4.9); Albumin/Globulin Ratio 1.31 Ratio (1.60-3.17); Alkaline Phosphatase 100 U/L (41-126); Blood Urea Nitrogen 12.8 mg/dL (9.0-27.0); Calcium 8.8 mg/dL (8.7-10.3); Carbon Dioxide 25.2 mmol/L (21.6-31.8); Chloride 105 mmol/L (96-109); Globulin 2.6 g/dL (1.6-3.3); Glucose 92 mg/dL (70-110); Potassium 4.4 mmol/L (3.5-5.5); Sodium 139 mmol/L (135-145); Total Bilirubin 0.4 mg/dL (0.3-1.2)
[2024-11-24 09:36] VITALS: PULSE 96; RESP 22; TEMP 98.1
[2024-11-24 11:54] VITALS: BP 136/73
--- NOTE | 2024-11-24 14:49 | P.PN ---
Subjective Progress Note Date: 11/24/24 Principal diagnosis: Reason for follow-up is recurrent UTI Patient is a 89-year-old female with a past medical history significant for CVA TIA hypertension osteoarthritis presenting to the hospital for evaluation of urinary frequency and burning with concern for colovesical fistula did have abnormality seen on cystoscopy. On today's evaluation that is 11/24/2024, Patient is afebrile this morning patient denies having any chest pain shortness of breath or cough, the patient is currently on room air, patient mention improvement abdominal pain did have good bowel movement no further pematuria. Patient white count 7.33, creatinine 0.8 Objective - Vital Signs Vital signs: Vital Signs Temp 98.1 F 11/24/24 08:00 Pulse 96 11/24/24 08:00 Resp 22 11/24/24 08:00 BP 152/80 11/24/24 08:00 Pulse Ox 95 11/24/24 01:00 FiO2 Intake & Output 11/23/24 11/24/24 11/24/24 18:59 06:59 18:59 Intake Total 540 240 Balance 540 240 Intake: Oral 540 240 Other: Voiding Method Toilet Toilet Toilet # Voids 3 1 - Exam GENERAL DESCRIPTION: An elderly female lying in bed in no distress RESPIRATORY SYSTEM: Unlabored breathing , decreased breath sounds at bases HEART: S1 S2 regular rate and rhythm , ABDOMEN: Soft , no tenderness EXTREMITIES: No edema feet - Labs CBC & Chem 7: 11/24/24 05:28 11/24/24 05:28 Labs: Abnormal Lab Results - Last 24 Hours (Table) 11/24/24 11/24/24 Range/Units 05:28 05:28 RBC 3.87 L (4.10-5.20) X 10*6/uL MCH 32.3 H (27.0-32.0) pg AST 81 H (13-35) U/L ALT 59 H (8-44) U/L Total Protein 6.0 L (6.2-8.2) g/dL Albumin 3.4 L (3.8-4.9) g/dL Albumin/Globulin Ratio 1.31 L (1.60-3.17) Ratio Microbiology - Last 24 Hours (Table) 11/20/24 19:43 Blood Culture - Preliminary Blood Assessment and Plan (1) Allergy to multiple antibiotics Current Visit: Yes Status: Acute Code(s): Z88.1 - ALLERGY STATUS TO OTHER ANTIBIOTIC AGENTS SNOMED Code(s): 394266708 (2) Urinary tract infection Current Visit: Yes Status: Acute Code(s): N39.0 - URINARY TRACT INFECTION, SITE NOT SPECIFIED SNOMED Code(s): 35926035 Plan: 1patient presented to hospital with urinary burning frequency failing outpatient antibiotic therapy positive UA concerning for symptomatic UTI likely from fluid gram-negative pathogen. 2patient did have a history of recurrent UTI apparently the patient did have a CT that was concerning for possible colovesical fistula, patient did have a cystoscopy that has been suspicious for possible fistula 3etiology of recurrent UTIs more likely related to colovesical fistula and without treatment she will be risk for recurrent UTI, 4patient mentions some improvement in her symptoms will continue Levaquin and Flagyl, finishing therapy with a course of Levaquin Flagyl on discharge multiple question concern answered Dictation was produced using [employer] dictation software. please excuse any grammatical, word or spelling errors. Time with Patient: Less than 30
--- NOTE | 2024-11-24 15:25 | P.PN ---
Subjective Progress Note Date: 11/24/24 CHIEF COMPLAINT: Colovesical fistula HISTORY OF PRESENT ILLNESS: The patient is a 89-year-old female admitted due to recurrent urinary tract infection and air within the bladder. Patient completed a cystoscopy. Patient reports that she is still passing stool and air through her urine. Patient reports no new complaints. Abdominal pain controlled. Afebrile. WBC 7.33 Hgb 12.5 PHYSICAL EXAM: VITAL SIGNS: Reviewed GENERAL: Well-developed in no acute distress. HEENT: No sclera icterus. Extraocular movements grossly intact. Moist buccal mucosa. Head is atraumatic, normocephalic. Hears conversational speech. No nasal drainage. NECK: Supple without lymphadenopathy. CHEST: Non-labored respirations and equal bilateral excursions. CARDIOVASCULAR: Palpable 2+ radial pulses. ABDOMEN: Soft. Nondistended. mild tenderness suprapubic and left lower quadrant area MUSCULOSKELETAL: No clubbing or cyanosis. NEUROLOGIC: No focal or lateralizing signs. Cranial nerves II through XII grossly intact. PSYCH: Appropriate affect. Alert and oriented to person, place and time. SKIN: Well perfused. Good skin turgor. ASSESSMENT: 1. Abnormal CT scan for bladder fistula 2. Moderate pneumoperitoneum within bladder without instrumentation 3. Severe diverticulosis 4. Severe constipation 5. Colovesical fistula. PLAN: -Patient can be discharged from surgical standpoint -At this time, patient does not want a colostomy bag and wants an alternative of colectomy. 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 Godoy in March of last year. Will need cardiac risk assessment prior to surgical intervention. -Patient agreed to follow-up as outpatient and may be discharged once medically stable. Physician Associate Manager note has been reviewed by physician. Signing provider agrees with the documented findings, assessment, and plan of care. Objective - Vital Signs Vital signs: Vital Signs Temp 98.1 F 11/24/24 08:00 Pulse 96 11/24/24 11:53 Resp 22 11/24/24 08:00 BP 136/73 11/24/24 11:53 Pulse Ox 95 11/24/24 01:00 FiO2 Intake & Output 11/23/24 11/24/24 11/24/24 18:59 06:59 18:59 Intake Total 540 240 Balance 540 240 Intake: Oral 540 240 Other: Voiding Method Toilet Toilet Toilet # Voids 3 1 - Labs CBC & Chem 7: 11/24/24 05:28 11/24/24 05:28 Labs: Abnormal Lab Results - Last 24 Hours (Table) 11/24/24 11/24/24 Range/Units 05:28 05:28 RBC 3.87 L (4.10-5.20) X 10*6/uL MCH 32.3 H (27.0-32.0) pg AST 81 H (13-35) U/L ALT 59 H (8-44) U/L Total Protein 6.0 L (6.2-8.2) g/dL Albumin 3.4 L (3.8-4.9) g/dL Albumin/Globulin Ratio 1.31 L (1.60-3.17) Ratio Microbiology - Last 24 Hours (Table) 11/20/24 19:43 Blood Culture - Preliminary Blood
== END 2024-11-24 15:20 | disposition home or self-care (01) | DRG 699 ==
LOC: EC 16:25 → 4SSUR 19:41 → OBSVTOIN 19:42 → 4SSUR 22:01 → 5NMEDONC 11-21 08:29
PROVIDERS: ADMIT Internal Medicine; ATTEND Internal Medicine
PROC: 0TJB8ZZ Inspection of Bladder, Via Natural or Artificial Opening Endoscopic (ICD-10-PCS; principal; 2024-11-22)
DX: N32.1 Vesicointestinal fistula (principal); E87.1 Hypo-osmolality and hyponatremia; K66.8 Other specified disorders of peritoneum; R18.8 Other ascites; I10 Essential (primary) hypertension; N39.0 Urinary tract infection, site not specified; Z68.1 Body mass index [BMI] 19.9 or less, adult; R32 Unspecified urinary incontinence; G89.29 Other chronic pain; K59.09 Other constipation; M54.9 Dorsalgia, unspecified; R39.89 Other symptoms and signs involving the genitourinary system; R63.6 Underweight; N32.89 Other specified disorders of bladder; K57.30 Diverticulosis of large intestine without perforation or abscess without bleeding; Z88.1 Allergy status to other antibiotic agents; Z88.0 Allergy status to penicillin; Z88.2 Allergy status to sulfonamides; Z88.8 Allergy status to other drugs, medicaments and biological substances; Z88.9 Allergy status to unspecified drugs, medicaments and biological substances; Z86.73 Personal history of transient ischemic attack (TIA), and cerebral infarction without residual deficits; Z87.891 Personal history of nicotine dependence; Z87.440 Personal history of urinary (tract) infections; Z90.710 Acquired absence of both cervix and uterus
CPT/HCPCS: 76770; 80053; 81001; 82150; 83605; 83690; 85025; 85610; 85730; 87040; 87086; 96365; 96368; 99285

== ENCOUNTER 2024-11-27 12:37 | Inpatient (IN) | payer MEDICARE ==
--- NOTE | 2024-11-27 13:00 | ED ---
Abdominal Pain HPI - General Source: patient, RN notes reviewed Mode of arrival: ambulatory Limitations: no limitations - History of Present Illness MD Complaint: flank pain <Emeka Antonio - Last Filed: 11/27/24 13:01> <Ernesto Ragsdale - Last Filed: 11/27/24 19:01> - General Chief Complaint: Abdominal Pain Stated Complaint: Vomiting,Back pain Time Seen by Provider: 11/27/24 12:51 - History of Present Illness Initial Comments: Quick note: This is an 89-year-old female presenting with left back pain (8) and nausea/vomiting. Patient states she was recently discharged following admission for a colovesicle fistula with associated abdominal pain. States she was prescribed 2 antibiotics with worsening symptoms subsequently developing since time of discharge. Patient describes left back/flank pain as intermittent and stabbing. Also endorses constipation since discharge. Patient states she has an upcoming cardiology appointment to assess cardiac function prior to undergoing surgery to correct fistula. (Emeka Antonio) Dictation was produced using [employer] dictation software. please excuse any grammatical, word or spelling errors. Chief Complaint: 89-year-old female presents emergency department nausea vomiting History of Present Illness: Patient is a 89-year-old female states that she was recently admitted for vesicular colonic fistula. Apparently she was seen by general surgery however no plans for repair at this time until patient had cardiac clearance by cardiology. She was discharged on the fourth however she was instructed come back to the emergency department if she was not able to keep anything down. Patient states that she had several bouts of nausea vomiting today. Patient currently on Levaquin and Flagyl. The ROS documented in this emergency department record has been reviewed and confirmed by me. Those systems with pertinent positive or negative responses have been documented in the HPI. All other systems are other negative and/or noncontributory. (Ernesto Ragsdale) - Related Data Home Medications Medication Instructions Recorded Confirmed HYDROcodone/APAP 7.5-325MG [[place] 1 tab PO BID PRN 03/05/17 11/20/24 7.5-325] Cyclobenzaprine [Flexeril] 5 mg PO HS PRN 11/20/24 11/20/24 Losartan [Cozaar] 50 mg PO DAILY 11/20/24 11/20/24 Previous Rx's Medication Instructions Recorded Acetaminophen Tab [Tylenol] 650 mg PO Q6HR PRN tab 11/24/24 Famotidine [Pepcid] 20 mg PO HS #30 tab 11/24/24 Lactulose [Cephulac] 30 gm PO TID #360 ml 11/24/24 Levofloxacin [Levaquin] 750 mg PO HS 14 Days #14 tab 11/24/24 metroNIDAZOLE [Flagyl] 500 mg PO TID 14 Days #42 tab 11/24/24 Allergies Allergy/AdvReac Type Severity Reaction Status Date / Time alendronate sodium Allergy Unknown Verified 11/27/24 12:42 [From Fosamax] ceftriaxone [From Rocephin] Allergy Unknown Verified 11/27/24 12:42 Penicillins Allergy Unknown Verified 11/27/24 12:42 Saqtmat-KOP-JzS Reductase Allergy Unknown Verified 11/27/24 12:42 Inhibitor [Qvrbgfi-Klc-Bux Reductase Inhibitor] sulfamethoxazole Allergy facial Verified 11/27/24 12:42 [From Bactrim] swelling trimethoprim [From Bactrim] Allergy facial Verified 11/27/24 12:42 swelling amoxicillin AdvReac mouth Verified 11/27/24 12:42 blisters bacitracin AdvReac blisters Verified 11/27/24 12:42 [From Neosporin (yli-bsb-husss)] bacitracin zinc AdvReac blisters Verified 11/27/24 12:42 [From Neosporin ([id number]-zlr-cebvo)] neomycin sulfate AdvReac blisters Verified 11/27/24 12:42 [From Neosporin (uiq-rzj-tyfrv)] polymyxin B AdvReac blisters Verified 11/27/24 12:42 [From Neosporin ([id number])] Review of Systems ROS Other: All systems not noted in ROS Statement are negative. <Emeka Anotnio - Last Filed: 11/27/24 13:01> ROS Other: All systems not noted in ROS Statement are negative. <Ernesto Ragsdale - Last Filed: 11/27/24 19:01> ROS Statement: Those systems with pertinent positive or pertinent negative responses have been documented in the HPI. Past Medical History Past Medical History: CVA/TIA, Hypertension, Osteoarthritis (OA) Additional Past Medical History / Comment(s): possible TIA 2016, hx fx vertebrae in back., back pain, osteoporosis. History of Any Multi-Drug Resistant Organisms: None Reported Past Surgical History: Hysterectomy, Joint Replacement Additional Past Surgical History / Comment(s): colonoscopy, total rt knee Past Anesthesia/Blood Transfusion Reactions: Previous Problems w/ Anesthesia, Postoperative Nausea & Vomiting (PONV) Additional Past Anesthesia/Blood Transfusion Reaction / Comment(s): passed out after discharge from colonoscopy and went by ambulance back to the ER. Past Psychological History: No Psychological Hx Reported Smoking Status: Former smoker Past Alcohol Use History: None Reported Past Drug Use History: None Reported - Past Family History Sister(s) Family Medical History: Cancer Additional Family Medical History / Comment(s): pancreatic cancer Mother Family Medical History: Hypertension, Osteoarthritis (OA) Father Additional Family Medical History / Comment(s): panic attacks and alcoholism <Emeka Antonio - Last Filed: 11/27/24 13:01> General Exam Limitations: no limitations <Emeka Antonio - Last Filed: 11/27/24 13:01> <Ernesto Ragsdale - Last Filed: 11/27/24 19:01> - General Exam Comments Initial Comments: Visual Physical Exam Vital signs reviewed General: Well-appearing, nontoxic, no acute distress. Patient seen clutching left back Head: Normocephalic, atraumatic Eyes: PERRLA, EOMI ENT: Airway patent Chest: Nonlabored breathing Skin: No visual rash, normal skin tone Neuro: Alert and oriented 3 Musculoskeletal: No gross abnormalities (Emeka Antonio) PHYSICAL EXAM: General Impression: Alert and oriented x3, not in acute distress HEENT: Normocephalic atraumatic, extra-ocular movements intact, pupils equal and reactive to light bilaterally, mucous membranes moist. Cardiovascular: Heart regular rate and rhythm Chest: Able to complete full sentences, no retractions, no tachypnea Abdomen: abdomen soft, non-tender, non-distended, no organomegaly Musculoskeletal: Pulses present and equal in all extremities, no peripheral edema Motor: no focal deficits noted Neurological: CN II-XII grossly intact, no focal motor or sensory deficits noted Skin: Intact with no visualized rashes Psych: Normal affect and mood (Ernesto Ragsdale) Course Vital Signs 11/27/24 11/27/24 12:39 17:10 Temperature 97.9 F 97.9 F Pulse Rate 68 71 Respiratory 20 Rate Blood Pressure 143/61 140/74 O2 Sat by Pulse 99 98 Oximetry Medical Decision Making <Emeka Antonio - Last Filed: 11/27/24 13:01> - Lab Data Result diagrams: 11/27/24 13:23 11/27/24 13:23 <MelyssaErnesto D - Last Filed: 11/27/24 19:01> - Medical Decision Making I completed the quick note portion of this chart signed SHANNON Bullard (Emeka Antonio) Was pt. sent in by a medical professional or institution ([facility] Gonzalez, TRACK GRINDER OPERATOR, urgent care, hospital, or skilled nursing...) When possible be specific @ -No Did you speak to anyone other than the patient for history (EMS, parent, family, police, friend...)? What history was obtained from this source @ -No Did you review nursing and triage notes (agree or disagree)? Why? @ -I reviewed and agree with nursing and triage notes Were old charts reviewed (outside hosp., previous admission, EMS record, old EKG, old radiological studies, urgent care reports/EKG's, skilled nursing records)? Report findings @ -No old charts were reviewed Differential Diagnosis (chest pain, altered mental status, abdominal pain women, abdominal pain men, vaginal bleeding, musculoskeletal, weakness, fever, dyspnea, syncope, headache, dizziness, GI bleed, back pain, seizure, CVA, palpatations, mental health)? @ -Differential Abdominal Pain Women: Appendicitis, Cholecystitis, diverticulosis, ischemic bowel, pancreatitis, hepatitis, UTI, gastroenteritis, AAA, incarcerated hernia, bowel obstruction, constipation, inflammatory bowel, hepatitis, peptic ulcer disease, splenic infarction, perforated viscus, vulvitis, ovarian torsion, PID, kidney stone, placenta abruption, this is not meant to be an all-inclusive list EKG interpreted by me (3pts min.). @ -None done X-rays interpreted by me (1pt min.). @ -None done CT interpreted by me (1pt min.). @ -CT abdomen pelvis shows no acute processes U/S interpreted by me (1pt. min.). @ -None done What testing was considered but not performed or refused? (CT, X-rays, U/S, labs)? Why? @ -None What meds were considered but not given or refused? Why? @ -None Was smoking cessation discussed for >3mins.? @ -No Were there social determinants of health that impacted care today? How? (Homelessness, low income, unemployed, alcoholism, drug addiction, transportation, low edu. Level, literacy, decrease access to med. care, group home, rehab)? @ -No Was there de-escalation of care discussed even if they declined (Discuss DNR or withdrawal of care, Hospice)? DNR status @ -No What co-morbidities impacted this encounter? (DM, HTN, Smoking, COPD, CAD, Cancer, CVA, ARF, Chemo, Hep., AIDS, mental health diagnosis, sleep apnea, morbid obesity)? @ -Colonic vesicular fistula Was patient admitted / discharged? Hospital course, mention meds given and route, prescriptions, significant lab abnormalities, going to OR and other pertinent info. @ -89-year-old female presents to the emergency department for nausea and vomiting she was instructed to come to the ER if she was unable to tolerate antibiotics recently diagnosed with colonic vesicular fistula. Sounds like at the time of discharge 3 days ago they were going to proceed with outpatient management. States that she threw up her antibiotics today. Laboratory evaluation shows persistent UTI. Rest of labs within acceptable limits. Disposition options were discussed she was agreeable for observation admission. Case discussed with hospitalist for admission Did you discuss the management of the patient with other professionals (professionals i.e. , PA, TRACK GRINDER OPERATOR, lab, RT, psych nurse, social sciences department chair, v belt finisher, teacher, chief supply chain officer, case finishing machine adjuster)? Give summary @ -See above Was critical care preformed (if so, how long)? @ -No Undiagnosed new problem with uncertain prognosis? @ -No Drug Therapy requiring intensive monitoring for toxicity (Heparin, Nitro, Insulin, Cardizem)? @ -No Were any procedures done? @ -No Diagnosis/symptom? Acute, or Chronic, or Acute on Chronic? Uncomplicated (without systemic symptoms) or Complicated (systemic symptoms)? @ -Nausea vomiting Side effects of treatment? @ -No Exacerbation, Progression, or Severe Exacerbation? @ -No Poses a threat to life or bodily function? How? (Chest pain, USA, DC, pneumonia, PE, COPD, DKA, ARF, appy, cholecystitis, CVA, Diverticulitis, Homicidal, Suicidal, threat to staff... and all critical care pts) @ -ysibeth (Ernesto Ragsdale) - Lab Data Lab Results 11/27/24 11/27/24 11/27/24 Range/Units 13:00 13:23 13:23 WBC 7.8 (3.8-10.6) k/uL RBC 3.99 (3.80-5.40) m/uL Hgb 12.7 (11.4-16.0) gm/dL Hct 38.5 (34.0-46.0) % MCV 96.4 (80.0-100.0) fL MCH 31.9 (25.0-35.0) pg MCHC 33.1 (31.0-37.0) g/dL RDW 12.8 (11.5-15.5) % Plt Count 230 (150-450) k/uL MPV 7.2 Neutrophils % 82 % Lymphocytes % 12 % Monocytes % 4 % Eosinophils % 1 % Basophils % 0 % Neutrophils # 6.4 (1.3-7.7) k/uL Lymphocytes # 0.9 L (1.0-4.8) k/uL Monocytes # 0.3 (0-1.0) k/uL Eosinophils # 0.1 (0-0.7) k/uL Basophils # 0.0 (0-0.2) k/uL Sodium 134 L (137-145) mmol/L Potassium 4.4 (3.5-5.1) mmol/L Chloride 101 (98-107) mmol/L Carbon Dioxide 23 (22-30) mmol/L Anion Gap 10 mmol/L BUN 20 H (7-17) mg/dL Creatinine 0.90 (0.52-1.04) mg/dL Est GFR (CKD-EPI)AfAm 67 (>60 ml/min/1.73 sqM) Est GFR (CKD-EPI)NonAf 58 (>60 ml/min/1.73 sqM) Glucose 106 H (74-99) mg/dL Plasma Lactic Acid Luis Alfredo (0.7-2.0) mmol/L Calcium 9.0 (8.4-10.2) mg/dL Total Bilirubin 0.6 (0.2-1.3) mg/dL AST 34 (14-36) U/L ALT 27 (4-34) U/L Alkaline Phosphatase 84 (38-126) U/L Total Protein 6.5 (6.3-8.2) g/dL Albumin 3.5 (3.5-5.0) g/dL Amylase 42 (30-110) U/L Lipase 50 (23-300) U/L Urine Color Yellow Urine Appearance Cloudy H (Clear) Urine pH 6.0 (5.0-8.0) Ur Specific [place] 1.012 (1.001-1.035) Urine Protein Trace H (Negative) Urine Glucose (UA) Negative (Negative) Urine Ketones Negative (Negative) Urine Blood Moderate H (Negative) Urine Nitrite Negative (Negative) Urine Bilirubin Negative (Negative) Urine Urobilinogen <2.0 (<2.0) mg/dL Ur Leukocyte Esterase Large H (Negative) Urine RBC 29 H (0-5) /hpf Urine WBC >182 H (0-5) /hpf Urine WBC Clumps Few H (None) /hpf Ur Squamous Epith Cells 4 (0-4) /hpf Urine Bacteria Rare H (None) /hpf Urine Mucus Rare H (None) /hpf 11/27/24 Range/Units 13:23 WBC (3.8-10.6) k/uL RBC (3.80-5.40) m/uL Hgb (11.4-16.0) gm/dL Hct (34.0-46.0) % MCV (80.0-100.0) fL MCH (25.0-35.0) pg MCHC (31.0-37.0) g/dL RDW (11.5-15.5) % Plt Count (150-450) k/uL MPV Neutrophils % % Lymphocytes % % Monocytes % % Eosinophils % % Basophils % % Neutrophils # (1.3-7.7) k/uL Lymphocytes # (1.0-4.8) k/uL Monocytes # (0-1.0) k/uL Eosinophils # (0-0.7) k/uL Basophils # (0-0.2) k/uL Sodium (137-145) mmol/L Potassium (3.5-5.1) mmol/L Chloride (98-107) mmol/L Carbon Dioxide (22-30) mmol/L Anion Gap mmol/L BUN (7-17) mg/dL Creatinine (0.52-1.04) mg/dL Est GFR (CKD-EPI)AfAm (>60 ml/min/1.73 sqM) Est GFR (CKD-EPI)NonAf (>60 ml/min/1.73 sqM) Glucose (74-99) mg/dL Plasma Lactic Acid Luis Alfredo 1.3 (0.7-2.0) mmol/L Calcium (8.4-10.2) mg/dL Total Bilirubin (0.2-1.3) mg/dL AST (14-36) U/L ALT (4-34) U/L Alkaline Phosphatase (38-126) U/L Total Protein (6.3-8.2) g/dL Albumin (3.5-5.0) g/dL Amylase (30-110) U/L Lipase (23-300) U/L Urine Color Urine Appearance (Clear) Urine pH (5.0-8.0) Ur Specific [place] (1.001-1.035) Urine Protein (Negative) Urine Glucose (UA) (Negative) Urine Ketones (Negative) Urine Blood (Negative) Urine Nitrite (Negative) Urine Bilirubin (Negative) Urine Urobilinogen (<2.0) mg/dL Ur Leukocyte Esterase (Negative) Urine RBC (0-5) /hpf Urine WBC (0-5) /hpf Urine WBC Clumps (None) /hpf Ur Squamous Epith Cells (0-4) /hpf Urine Bacteria (None) /hpf Urine Mucus (None) /hpf Disposition <Emeka Antonio - Last Filed: 11/27/24 13:01> Decision Time: 19:01 <Ernesto Ragsdale - Last Filed: 11/27/24 19:01> Clinical Impression: Nausea and vomiting Disposition: ADMITTED IP TO THIS [facility] Condition: Fair Referrals: Evangelista Montero DO [Primary Care Provider] - 1-2 days
[2024-11-27 13:32] LABS: Basophils % (A) 0 %; Eosinophils # (A) 0.1 k/uL (0-0.7); Eosinophils % (A) 1 %; HCT 38.5 % (34.0-46.0); HGB 12.7 gm/dL (11.4-16.0); Lymphocytes # (A) 0.9 k/uL (1.0-4.8); Lymphocytes % (A) 12 %; MCH 31.9 pg (25.0-35.0); MCHC 33.1 g/dL (31.0-37.0); MCV 96.4 fL (80.0-100.0); Mean Platelet Volume 7.2; Monocytes # (A) 0.3 k/uL (0-1.0); Monocytes % (A) 4 %; Neutrophils # (A) 6.4 k/uL (1.3-7.7); Neutrophils % (A) 82 %; Platelet Count 230 k/uL (150-450); RBC 3.99 m/uL (3.80-5.40); RDW 12.8 % (11.5-15.5); WBC 7.8 k/uL (3.8-10.6)
[2024-11-27 14:09] LABS: ALT 27 U/L (4-34); AST 34 U/L (14-36); African American GFR (CKD) 67 (>60 ml/min/1.73 sqM); Albumin 3.5 g/dL (3.5-5.0); Alkaline Phosphatase 84 U/L (38-126); Amylase 42 U/L (30-110); Anion Gap 10 mmol/L; Blood Urea Nitrogen 20 mg/dL (7-17); Carbon Dioxide 23 mmol/L (22-30); Chloride 101 mmol/L (98-107); Glucose 106 mg/dL (74-99); Lipase 50 U/L (23-300); Non-African American GFR(CKD) 58 (>60 ml/min/1.73 sqM); Potassium 4.4 mmol/L (3.5-5.1); Sodium 134 mmol/L (137-145); Total Bilirubin 0.6 mg/dL (0.2-1.3); Total Protein 6.5 g/dL (6.3-8.2)
[2024-11-27 16:06] LABS: Appearance,Urine Cloudy (Clear); Bacteria,Urine Rare /hpf; Bilirubin,Urine Negative (Negative); Blood,Urine Moderate (Negative); Color,Urine Yellow; Glucose,Urine (UA) Negative (Negative); Ketones,Urine Negative (Negative); Leukocyte Esterase,Urine Large (Negative); Mucus,Urine Rare /hpf; Nitrite,Urine Negative (Negative); Protein,Urine Trace (Negative); RBC,Urine 29 /hpf (0-5); Specific Gravity,Urine 1.012 (1.001-1.035); Squamous Epithelial Cell,Urine 4 /hpf (0-4); Urobilinogen,Urine <2.0 mg/dL (<2.0); WBC,Urine >182 /hpf (0-5)
--- NOTE | 2024-11-27 18:43 | CT ---
EXAMINATION TYPE: CT abdomen pelvis w con DATE OF EXAM: 11/27/2024 6:33 PM COMPARISON: CT abdomen pelvis most recent from 11/19/2024 CLINICAL INDICATION: Female, 89 years old with history of left flank pain/ abd pain; abdominal/flank pain TECHNIQUE: Axial CT abdomen pelvis w con;Sagittal and coronal reformats were created on a separate w orkstation. Contrast used:80cc mL of Isovue 300 with IV Contrast, (none if empty) Oral contrast used: without Oral Contrast (none if empty) CT DLP: 511.7 mGycm, Automated exposure control for dose reduction was used. FINDINGS: LOWER CHEST: Unremarkable ABDOMEN LIVER: Unremarkable GALLBLADDER AND BILE DUCTS: Unremarkable. PANCREAS: Unremarkable. SPLEEN: Scattered calcified granulomas. ADRENAL GLANDS: Unremarkable. KIDNEYS AND URETERS: No evidence of hydronephrosis or renal calculus. The ureters are unremarkable. PELVIS BLADDER: Urinary bladder is distended. Large amount of gas in the nondependent portion present No uriel dence for wall thickening or mass given limitations of exam. REPRODUCTIVE: Probable right ovarian 25 mm cyst. Atrophic uterus versus surgically absent. ABDOMEN & PELVIS STOMACH AND BOWEL: . Scattered diverticula are noted throughout the colon. No evidence of bowel obstr uction. Large stool burden throughout the colon. PERITONEUM/RETROPERITONEUM: No evidence of pneumoperitoneum or free fluid. VASCULATURE: Moderate atherosclerotic calcifications are present throughout the abdominal aorta and i ts branches. No evidence of aortic aneurysm. MUSCULOSKELETAL: No acute osseous abnormalities. Moderate disc degeneration changes are present throu ghout the thoracolumbar spine. LYMPH NODES: No gross evidence for lymphadenopathy. SOFT TISSUE/ABDOMINAL WALL: Unremarkable IMPRESSION: 1. Reinsertion of Colonic diverticulosis. 2. Large stool burden throughout the colon. 3. Distended urinary bladder with large amount of gas correlated with recent instrumentation. Consid er Arias catheter. [facility], , 11/27/2024 6:40 PM
[2024-11-27] MEDS ORDERED: NALOXONE 0.4 MG/ML 1 ML VIAL IV PRN (18:57)
[2024-11-27] MEDS: ONDANSETRON 4 MG/2 ML VIAL IVP STA (20:15)
[2024-11-27] MEDS: LEVOFLOXACIN 750MG-D5W PMX 750 MG in DEXTROSE/WATER 1 150ML.BAG IVPB SCH (20:15)
[2024-11-27] MEDS: SODIUM CHLORIDE 0.9% 1,000 ML IV STA (20:17)
[2024-11-27] MEDS: LACTULOSE 20 GM/30 ML CUP PO SCH (21:38)
[2024-11-27] MEDS: metroNIDAZOLE-NS PMX 500 MG in SALINE 1 100ML.BAG IVPB SCH (21:39)
[2024-11-27] MEDS: HYDROmorphone 0.5 MG/0.5 ML SYRINGE IVP PRN (21:39)
[2024-11-27] MEDS: SODIUM CHLORIDE 0.9% 1,000 ML IV SCH (21:46)
[2024-11-28] MEDS: HYDROcodone/APAP 5-325MG 1 EACH TAB PO PRN (06:53)
[2024-11-28] MEDS: metroNIDAZOLE-NS PMX 500 MG in SALINE 1 100ML.BAG IVPB SCH (06:54)
--- NOTE | 2024-11-28 08:53 | P.CRDCN ---
History of Present Illness Consult date: 11/28/24 History of present illness: Patient is a pleasant 89-year-old female patient with past medical history significant for hypertension who was admitted to the hospital with recurrent UTI she underwent further evaluation including CT scan which showed colovesical fistula and the plan is to pursue surgery for that and the consul is for preop cardiac assessment the patient lives by herself and she is very active physically. She walks her dog on is. She stated that she is able to achieve going to flights of stairs with no cardiovascular symptoms of any pain in the chest or shortness of breath or dizziness or lightheadedness or any feeling of heart racing or fluttering or presyncope or syncope. She does have hypertension and the pressure appears to be under good control on the current medical regimen. Unfortunately no EKG in the chart but the patient is in process of having an EKG also she is in process of having an echocardiogram. The physical examination is remarkable for regular rhythm with a soft systolic murmur at the right and left upper sternal border with clear breathing sounds bilaterally and no edema was noted. Assessment Colovesical fistula Hypertension Systolic murmur on examination Plan Obtain twelve-lead EKG and echocardiogram Further recommendation to follow Past Medical History Past Medical History: CVA/TIA, Hypertension, Osteoarthritis (OA) Additional Past Medical History / Comment(s): possible TIA 2015, hx fx vertebrae in back., back pain, osteoporosis. History of Any Multi-Drug Resistant Organisms: None Reported Past Surgical History: Hysterectomy, Joint Replacement Additional Past Surgical History / Comment(s): colonoscopy, total rt knee Past Anesthesia/Blood Transfusion Reactions: Previous Problems w/ Anesthesia, Postoperative Nausea & Vomiting (PONV) Additional Past Anesthesia/Blood Transfusion Reaction / Comment(s): passed out after discharge from colonoscopy and went by ambulance back to the ER. Past Psychological History: No Psychological Hx Reported Smoking Status: Former smoker Past Alcohol Use History: None Reported Additional Past Alcohol Use History / Comment(s): started smoking at age 20,smoked 1/2 ppd, quit in 1999 Past Drug Use History: None Reported - Past Family History Sister(s) Family Medical History: Cancer Additional Family Medical History / Comment(s): pancreatic cancer Mother Family Medical History: Hypertension, Osteoarthritis (OA) Father Additional Family Medical History / Comment(s): panic attacks and alcoholism Medications and Allergies Home Medications Medication Instructions Recorded Confirmed Type HYDROcodone/APAP 7.5-325MG [[place] 1 tab PO BID PRN 03/05/17 11/27/24 History 7.5-325] Cyclobenzaprine [Flexeril] 5 mg PO HS PRN 11/20/24 11/27/24 History Losartan [Cozaar] 50 mg PO DAILY 11/20/24 11/27/24 History Acetaminophen Tab [Tylenol] 650 mg PO Q6HR PRN tab 11/24/24 11/27/24 Rx Famotidine [Pepcid] 20 mg PO HS #30 tab 11/24/24 11/27/24 Rx Lactulose [Cephulac] 30 gm PO TID #360 ml 11/24/24 11/27/24 Rx Levofloxacin [Levaquin] 750 mg PO HS 14 Days #14 tab 11/24/24 11/27/24 Rx metroNIDAZOLE [Flagyl] 500 mg PO TID 14 Days #42 tab 11/24/24 11/27/24 Rx Allergies Allergy/AdvReac Type Severity Reaction Status Date / Time alendronate sodium Allergy Unknown Verified 11/27/24 19:26 [From Fosamax] ceftriaxone [From Rocephin] Allergy Unknown Verified 11/27/24 19:26 Penicillins Allergy Unknown Verified 11/27/24 19:26 Werqheb-DBJ-ZcV Reductase Allergy Unknown Verified 11/27/24 19:26 Inhibitor [Dhbaeqp-Gxy-Hol Reductase Inhibitor] sulfamethoxazole Allergy facial Verified 11/27/24 19:26 [From Bactrim] swelling trimethoprim [From Bactrim] Allergy facial Verified 11/27/24 19:26 swelling amoxicillin AdvReac mouth Verified 11/27/24 19:26 blisters bacitracin AdvReac blisters Verified 11/27/24 19:26 [From Neosporin ([id number])] bacitracin zinc AdvReac blisters Verified 11/27/24 19:26 [From Neosporin ([id number]-eqm-mrwmm)] neomycin sulfate AdvReac blisters Verified 11/27/24 19:26 [From Neosporin (ezl-gid-ldidt)] polymyxin B AdvReac blisters Verified 11/27/24 19:26 [From Neosporin (hwy-meh-cwals)] Physical Exam Vitals: Vital Signs Temp Pulse Pulse Resp BP BP Pulse Ox 11/28/24 07:06 97.9 F 97 16 153/83 98 11/28/24 02:00 97.7 F 68 17 104/49 92 L 11/27/24 22:32 86 115/73 98 11/27/24 20:23 70 18 174/70 97 11/27/24 17:10 97.9 F 71 140/74 98 11/27/24 12:39 97.9 F 68 20 143/61 99 Intake and Output 11/27/24 11/28/24 11/28/24 22:59 06:59 14:59 Other: Voiding Method Toilet Diaper Weight 54.431 kg Results 11/27/24 13:23 11/27/24 13:23 Cardiac Enzymes 11/27/24 Range/Units 13:23 AST 34 (14-36) U/L CBC 11/27/24 Range/Units 13:23 WBC 7.8 (3.8-10.6) k/uL RBC 3.99 (3.80-5.40) m/uL Hgb 12.7 (11.4-16.0) gm/dL Hct 38.5 (34.0-46.0) % Plt Count 230 (150-450) k/uL Comprehensive Metabolic Panel 11/27/24 Range/Units 13:23 Sodium 134 L (137-145) mmol/L Potassium 4.4 (3.5-5.1) mmol/L Chloride 101 (98-107) mmol/L Carbon Dioxide 23 (22-30) mmol/L BUN 20 H (7-17) mg/dL Creatinine 0.90 (0.52-1.04) mg/dL Glucose 106 H (74-99) mg/dL Calcium 9.0 (8.4-10.2) mg/dL AST 34 (14-36) U/L ALT 27 (4-34) U/L Alkaline Phosphatase 84 (38-126) U/L Total Protein 6.5 (6.3-8.2) g/dL Albumin 3.5 (3.5-5.0) g/dL Current Medications Generic Name Dose Route Start Last Admin Trade Name Freq PRN Reason Stop Dose Admin Hydrocodone Bitart/Acetaminophen 1 each 11/27/24 21:27 11/28/24 06:53 Hydrocodone/Apap 5-325mg 1 Each Tab PO 1 each Q6HR PRN Administration Moderate Pain (Scale 4 to 6) Hydromorphone HCl 0.5 mg 11/27/24 21:28 11/27/24 21:39 Hydromorphone 0.5 Mg/0.5 Ml Syringe IVP 0.5 mg Q3HR PRN Administration Severe Pain (Scale 7 to 10) Levofloxacin 750 mg/ IV 150 mls @ 100 mls/hr 11/27/24 18:30 11/27/24 20:15 Solution IVPB 100 mls/hr DAILY@1800 SYDNEE Administration Protocol Sodium Chloride 1,000 mls @ 75 mls/hr 11/27/24 19:00 11/27/24 21:46 Saline 0.9% IV 75 mls/hr .[id number] SYDNEE Administration Metronidazole 500 mg/ IV 100 mls @ 100 mls/hr 11/28/24 06:00 11/28/24 06:54 Solution IVPB 100 mls/hr Q8H SYDNEE Administration Protocol Lactulose 30 gm 11/27/24 22:00 11/27/24 21:38 Lactulose 20 Gm/30 Ml Cup PO Not Given TID SYDNEE Losartan Potassium 50 mg 11/28/24 09:00 Losartan 50 Mg Tab PO DAILY SYDNEE Naloxone HCl 0.2 mg 11/27/24 18:57 Naloxone 0.4 Mg/Ml 1 Ml Vial IV Q2M PRN Opioid Reversal Ondansetron HCl 4 mg 11/27/24 18:57 Ondansetron 4 Mg/2 Ml Vial IVP Q8HR PRN Nausea And Vomiting Intake and Output 11/27/24 11/28/24 11/28/24 22:59 06:59 14:59 Other: Voiding Method Toilet Diaper Weight 54.431 kg 11/27/24 13:23 11/27/24 13:23
[2024-11-28] MEDS: LOSARTAN 50 MG TAB PO SCH (10:56)
[2024-11-28] MEDS: ONDANSETRON 4 MG/2 ML VIAL IVP PRN (11:02)
--- NOTE | 2024-11-28 12:29 | P.GSCN ---
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 Patient has a large volume of air within the urine. Describes dysuria. Unfortunately previous barium enema and colonoscopy unsuccessful. Diverting ostomy was discussed apparently between Dr. Woodall and the patient last admission. She apparently wanted to go home and consider elective intervention. Came back to the hospital with worsening complaints. She is afebrile. White blood cell count normal yesterday. Review of Systems The patient denies any acute changes in vision or hearing, no dysphagia or odynophagia, no chest pain or shortness of breath, no headache, no runny nose, no rectal bleeding or melena, no unexplained weight loss Past Medical History Past Medical History: CVA/TIA, Hypertension, Osteoarthritis (OA) Additional Past Medical History / Comment(s): possible TIA 2015, hx fx vertebrae in back., back pain, osteoporosis. History of Any Multi-Drug Resistant Organisms: None Reported Past Surgical History: Hysterectomy, Joint Replacement Additional Past Surgical History / Comment(s): colonoscopy, total rt knee Past Anesthesia/Blood Transfusion Reactions: Previous Problems w/ Anesthesia, Postoperative Nausea & Vomiting (PONV) Additional Past Anesthesia/Blood Transfusion Reaction / Comm: passed out after discharge from colonoscopy and went by ambulance back to the ER. Past Psychological History: No Psychological Hx Reported Smoking Status: Former smoker Past Alcohol Use History: None Reported Additional Past Alcohol Use History / Comment(s): started smoking at age 20,smoked 1/2 ppd, quit in 1999 Past Drug Use History: None Reported - Past Family History Sister(s) Family Medical History: Cancer Additional Family Medical History / Comment(s): pancreatic cancer Mother Family Medical History: Hypertension, Osteoarthritis (OA) Father Additional Family Medical History / Comment(s): panic attacks and alcoholism Medications and Allergies Home Medications Medication Instructions Recorded Confirmed Type HYDROcodone/APAP 7.5-325MG [[place] 1 tab PO BID PRN 03/05/17 11/27/24 History 7.5-325] Cyclobenzaprine [Flexeril] 5 mg PO HS PRN 11/20/24 11/27/24 History Losartan [Cozaar] 50 mg PO DAILY 11/20/24 11/27/24 History Acetaminophen Tab [Tylenol] 650 mg PO Q6HR PRN tab 11/24/24 11/27/24 Rx Famotidine [Pepcid] 20 mg PO HS #30 tab 11/24/24 11/27/24 Rx Lactulose [Cephulac] 30 gm PO TID #360 ml 11/24/24 11/27/24 Rx Levofloxacin [Levaquin] 750 mg PO HS 14 Days #14 tab 11/24/24 11/27/24 Rx metroNIDAZOLE [Flagyl] 500 mg PO TID 14 Days #42 tab 11/24/24 11/27/24 Rx Allergies Allergy/AdvReac Type Severity Reaction Status Date / Time alendronate sodium Allergy Unknown Verified 11/27/24 19:26 [From Fosamax] ceftriaxone [From Rocephin] Allergy Unknown Verified 11/27/24 19:26 Penicillins Allergy Unknown Verified 11/27/24 19:26 Krmuwyn-RLJ-VhC Reductase Allergy Unknown Verified 11/27/24 19:26 Inhibitor [Kwkucig-Exx-Nbb Reductase Inhibitor] sulfamethoxazole Allergy facial Verified 11/27/24 19:26 [From Bactrim] swelling trimethoprim [From Bactrim] Allergy facial Verified 11/27/24 19:26 swelling amoxicillin AdvReac mouth Verified 11/27/24 19:26 blisters bacitracin AdvReac blisters Verified 11/27/24 19:26 [From Neosporin ([id number])] bacitracin zinc AdvReac blisters Verified 11/27/24 19:26 [From Neosporin ([id number]-[id number])] neomycin sulfate AdvReac blisters Verified 11/27/24 19:26 [From Neosporin ([id number])] polymyxin B AdvReac blisters Verified 11/27/24 19:26 [From Neosporin ([id number])] Surgical - Exam Vital Signs Temp Pulse Resp BP Pulse Ox 97.9 F 68 20 143/61 99 11/27/24 12:39 11/27/24 12:39 11/27/24 12:39 11/27/24 12:39 11/27/24 12:39 Physical exam: General: Well-developed, well-nourished HEENT: Normocephalic, sclerae nonicteric Abdomen: Nontender, nondistended Extremities: No edema Neuro: Alert and oriented Results - Labs 11/27/24 13:23 11/27/24 13:23 Abnormal Lab Results - Last 24 Hours (Table) 11/27/24 11/27/24 11/27/24 Range/Units 13:00 13:23 13:23 Lymphocytes # 0.9 L (1.0-4.8) k/uL Sodium 134 L (137-145) mmol/L BUN 20 H (7-17) mg/dL Glucose 106 H (74-99) mg/dL Urine Appearance Cloudy H (Clear) Urine Protein Trace H (Negative) Urine Blood Moderate H (Negative) Ur Leukocyte Esterase Large H (Negative) Urine RBC 29 H (0-5) /hpf Urine WBC >182 H (0-5) /hpf Urine WBC Clumps Few H (None) /hpf Urine Bacteria Rare H (None) /hpf Urine Mucus Rare H (None) /hpf Diabetes panel 11/27/24 Range/Units 13:23 Sodium 134 L (137-145) mmol/L Potassium 4.4 (3.5-5.1) mmol/L Chloride 101 (98-107) mmol/L Carbon Dioxide 23 (22-30) mmol/L BUN 20 H (7-17) mg/dL Creatinine 0.90 (0.52-1.04) mg/dL Glucose 106 H (74-99) mg/dL Calcium 9.0 (8.4-10.2) mg/dL AST 34 (14-36) U/L ALT 27 (4-34) U/L Alkaline Phosphatase 84 (38-126) U/L Total Protein 6.5 (6.3-8.2) g/dL Albumin 3.5 (3.5-5.0) g/dL Calcium panel 11/27/24 Range/Units 13:23 Calcium 9.0 (8.4-10.2) mg/dL Albumin 3.5 (3.5-5.0) g/dL Pituitary panel 11/27/24 Range/Units 13:23 Sodium 134 L (137-145) mmol/L Potassium 4.4 (3.5-5.1) mmol/L Chloride 101 (98-107) mmol/L Carbon Dioxide 23 (22-30) mmol/L BUN 20 H (7-17) mg/dL Creatinine 0.90 (0.52-1.04) mg/dL Glucose 106 H (74-99) mg/dL Calcium 9.0 (8.4-10.2) mg/dL Adrenal panel 11/27/24 Range/Units 13:23 Sodium 134 L (137-145) mmol/L Potassium 4.4 (3.5-5.1) mmol/L Chloride 101 (98-107) mmol/L Carbon Dioxide 23 (22-30) mmol/L BUN 20 H (7-17) mg/dL Creatinine 0.90 (0.52-1.04) mg/dL Glucose 106 H (74-99) mg/dL Calcium 9.0 (8.4-10.2) mg/dL Total Bilirubin 0.6 (0.2-1.3) mg/dL AST 34 (14-36) U/L ALT 27 (4-34) U/L Alkaline Phosphatase 84 (38-126) U/L Total Protein 6.5 (6.3-8.2) g/dL Albumin 3.5 (3.5-5.0) g/dL Assessment and Plan (1) Colovesical fistula Narrative/Plan: 89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 Etiology somewhat unclear from CAT scan. Patient complaining of lower abdominal fullness and incontinence issues. CAT scan showing retention. Will have Arias catheter placed. Spoke with nurse will try an 18 Jamaican catheter. Continue antibiotics. Continue pre operative clearance. Will discuss further with Dr. Woodall. Current Visit: No Status: Acute Code(s): N32.1 - VESICOINTESTINAL FISTULA SNOMED Code(s): 19069223
[2024-11-28 13:00] VITALS: BMI 18.2
[2024-11-28] MEDS ORDERED: CYCLOBENZAPRINE 5 MG TAB PO PRN (15:19)
--- NOTE | 2024-11-28 15:27 | P.HPIM ---
History of Present Illness H&P Date: 11/28/24 Chief Complaint: Back pain, nausea, vomiting Patient is a 89-year-old female with past medical history of hypertension and CVA who came to the ER with a chief complaint of back pain, nausea, and vomiting which began yesterday. 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 At the time she was prescribed 2 antibiotics, but states she was unable to tolerate them. She states she was supposed to have surgery done and had an appointment to see cardiology for clearance outpatient. Besides the vomiting and back pain, the patient also endorses headaches, dysuria and some constipation. She denies fevers, chills, diarrhea, chest pain, s hortness of breath. She denies any history of heart attacks, strokes, use of blood thinners. Vitals on admission temperature 97.5 F, heart rate 80 bpm, respiratory rate 18, blood pressure 132/76, O2 saturation 100% on room air EKG independently interpreted as sinus rhythm with frequent PVCs and PACs, ventricular rate 96 bpm and QTc of [address] of reinsertion of colonic diverticulosis, large stool burden throughout the colon, distended urinary bladder Labs on admission show WBC 7.8, hemoglobin 12.7, platelets 230. Sodium 134, potassium 4.4, chloride 1, bicarb 23, BUN 20, creatinine 0.9, glucose 106. UA was positive for blood, leukocyte esterase, bacteria, WBCs. Review of systems: Pertinent positives and negatives as discussed in HPI, a complete review of syst ems was performed and all other systems are negative. Allergies: PCP: Dr. Montero Social history: Tobacco: quit 2003 Alcohol: occasionally Recreational drugs: none Travel: none Sick contacts: none Physical examination: Vital signs reviewed General: nontoxic, no distress, appears at stated age Derm: warm, dry, intact Head: atraumatic, normocephalic, symmetric Eyes: anicteric sclera Mouth: no lip lesion, mucus membranes moist Cardiovascular: S1 S2 reg, systolic murmur noted Lungs: CTA bilateral, no rhonchi, no rales, no accessory muscle use Abdominal: soft, non-tender to palpation, nondistended Extremities: No cyanosis, clubbing, or pedal edema. Neuro: Alert, Oriented to person, time and place, Gross neurological examination did not reveal any focal deficits. Cranial nerves II to XII grossly intact. Bilateral upper and lower extremity muscle strength intact and sensation intact. Psych: well appearing, appropriate affect Assessment/Plan: Patient is a 89-year-old female with past medical history of hypertension and CVA who came to the ER with chief complaint of back pain, nausea, and vomiting which began yesterday. Active: Colovesical fistula History of complicated UTIs Continue Levaquin 750 mg daily Continue Flagyl 500 mg every 8 hours Will initiate aztreonam 2 g every 8 hours General surgery consulted Cardiology consulted for surgical clearance Infectious disease consulted Continue IV fluids Follow-up echocardiogram Follow-up urine culture Arias catheter in place Chronic: Hypertension Continue Cozaar 50 mg daily Constipation Continue lactulose 30g 3 times daily GERD Continue Pepcid 20 mg p.o. at bedtime History of degenerative joint disease Continue [place] 53 25 every 6 hours as needed Continue Flexeril 5 mg p.o. at bedtime as needed F: 0.9% NS at 75 mL/h E: Replete as needed N: Heart healthy with Ensure supplementation A: As tolerated DVT prophylaxis: Lovenox 40 mg subcu daily The patient is admitted with an anticipated more than 2 midnight stay for evaluation of colovesical fistula and complicated UTI CODE STATUS: Full code Discussed with: Patient Anticipated discharge place: Pending clinical course Attestation I have seen and examined this patient with my resident , discussed the same with the resident/MARLO, and agree with the dictator's assessment and plan as written GENERAL: The patient is alert and oriented x3, not in any acute distress. Well developed, well nourished. HEENT: Pupils are round and equally reacting to light. EOMI. No scleral icterus. No conjunctival pallor. Normocephalic, atraumatic. No pharyngeal erythema. No thyromegaly. CARDIOVASCULAR: S1 and S2 present. No murmurs, rubs, or gallops. PULMONARY: Chest is clear to auscultation, no wheezing or crackles. ABDOMEN: Soft, nontender, nondistended, normoactive bowel sounds. No palpable organomegaly. MUSCULOSKELETAL: No joint swelling or deformity. EXTREMITIES: No cyanosis, clubbing, or pedal edema. NEUROLOGICAL: Gross neurological examination did not reveal any focal deficits. SKIN: No rashes. Dr. Tan vazquez Past Medical History Past Medical History: CVA/TIA, Hypertension, Osteoarthritis (OA) Additional Past Medical History / Comment(s): possible TIA 2015, hx fx vertebrae in back., back pain, osteoporosis. History of Any Multi-Drug Resistant Organisms: None Reported Past Surgical History: Hysterectomy, Joint Replacement Additional Past Surgical History / Comment(s): colonoscopy, total rt knee Past Anesthesia/Blood Transfusion Reactions: Previous Problems w/ Anesthesia, Postoperative Nausea & Vomiting (PONV) Additional Past Anesthesia/Blood Transfusion Reaction / Comment(s): passed out after discharge from colonoscopy and went by ambulance back to the ER. Past Psychological History: No Psychological Hx Reported Smoking Status: Former smoker Past Alcohol Use History: None Reported Additional Past Alcohol Use History / Comment(s): started smoking at age 20,smoked 1/2 ppd, quit in 1999 Past Drug Use History: None Reported - Past Family History Sister(s) Family Medical History: Cancer Additional Family Medical History / Comment(s): pancreatic cancer Mother Family Medical History: Hypertension, Osteoarthritis (OA) Father Additional Family Medical History / Comment(s): panic attacks and alcoholism Medications and Allergies Home Medications Medication Instructions Recorded Confirmed Type HYDROcodone/APAP 7.5-325MG [[place] 1 tab PO BID PRN 03/05/17 11/27/24 History 7.5-325] Cyclobenzaprine [Flexeril] 5 mg PO HS PRN 11/20/24 11/27/24 History Losartan [Cozaar] 50 mg PO DAILY 11/20/24 11/27/24 History Acetaminophen Tab [Tylenol] 650 mg PO Q6HR PRN tab 11/24/24 11/27/24 Rx Famotidine [Pepcid] 20 mg PO HS #30 tab 11/24/24 11/27/24 Rx Lactulose [Cephulac] 30 gm PO TID #360 ml 11/24/24 11/27/24 Rx Levofloxacin [Levaquin] 750 mg PO HS 14 Days #14 tab 11/24/24 11/27/24 Rx metroNIDAZOLE [Flagyl] 500 mg PO TID 14 Days #42 tab 11/24/24 11/27/24 Rx Allergies Allergy/AdvReac Type Severity Reaction Status Date / Time alendronate sodium Allergy Unknown Verified 11/27/24 19:26 [From Fosamax] ceftriaxone [From Rocephin] Allergy Unknown Verified 11/27/24 19:26 Penicillins Allergy Unknown Verified 11/27/24 19:26 Gzsqsoh-CWF-WkE Reductase Allergy Unknown Verified 11/27/24 19:26 Inhibitor [Rclqdnu-Ebn-Moy Reductase Inhibitor] sulfamethoxazole Allergy facial Verified 11/27/24 19:26 [From Bactrim] swelling trimethoprim [From Bactrim] Allergy facial Verified 11/27/24 19:26 swelling amoxicillin AdvReac mouth Verified 11/27/24 19:26 blisters bacitracin AdvReac blisters Verified 11/27/24 19:26 [From Neosporin ([id number])] bacitracin zinc AdvReac blisters Verified 11/27/24 19:26 [From Neosporin ([id number]-mqo-zgjwc)] neomycin sulfate AdvReac blisters Verified 11/27/24 19:26 [From Neosporin (pqr-glt-iamsh)] polymyxin B AdvReac blisters Verified 11/27/24 19:26 [From Neosporin ([id number]-qua-qrhpz)] Physical Exam Vitals: Vital Signs Temp Pulse Pulse Resp BP BP Pulse Ox 11/28/24 02:00 97.7 F 68 17 104/49 92 L 11/27/24 22:32 86 115/73 98 11/27/24 20:23 70 18 174/70 97 11/27/24 17:10 97.9 F 71 140/74 98 11/27/24 12:39 97.9 F 68 20 143/61 99 Intake and Output 11/27/24 11/28/24 11/28/24 22:59 06:59 14:59 Other: Voiding Method Toilet Diaper Weight 54.431 kg Results CBC & Chem 7: 11/27/24 13:23 11/27/24 13:23 Labs: Abnormal Lab Results - Last 24 Hours (Table) 11/27/24 11/27/24 11/27/24 Range/Units 13:00 13:23 13:23 Lymphocytes # 0.9 L (1.0-4.8) k/uL Sodium 134 L (137-145) mmol/L BUN 20 H (7-17) mg/dL Glucose 106 H (74-99) mg/dL Urine Appearance Cloudy H (Clear) Urine Protein Trace H (Negative) Urine Blood Moderate H (Negative) Ur Leukocyte Esterase Large H (Negative) Urine RBC 29 H (0-5) /hpf Urine WBC >182 H (0-5) /hpf Urine WBC Clumps Few H (None) /hpf Urine Bacteria Rare H (None) /hpf Urine Mucus Rare H (None) /hpf Thrombosis Risk Factor Assmnt - Choose All That Apply Any of the Below Risk Factors Present?: No Other Risk Factors: Yes Each Risk Factor Represents 3 Points: Age 75 years or older Other congenital or acquired thrombophilia - If yes, enter type in comment: No Thrombosis Risk Factor Assessment Total Risk Factor Score: 3 Thrombosis Risk Factor Assessment Level: Moderate Risk
--- NOTE | 2024-11-28 16:22 | CA ---
Transthoracic Echo Report Name: Merly Solitario Age: 89 Gender: F : 1935 Exam Date: 11/28/2024 10:17 Exam Location: [place] [facility] Ht (in): 68 Wt (lb): 120 Ordering Physician: Agustin Moore MD ([id number]) Attending/Referring Phys: [employer] Inspector Angelita Feldman RDCS Procedure CPT: Indications: assess heart function Cardiac Hx: Technical Quality: Fair Contrast 1: Total Dose (mL): Contrast 2: Total Dose (mL): MEASUREMENTS (Male / Female) Normal Values 2D ECHO LV Diastolic Diameter PLAX 4.0 cm 4.2 - 5.9 / 3.9 - 5.3 cm LV Systolic Diameter PLAX 2.8 cm IVS Diastolic Thickness 0.9 cm 0.6 - 1.0 / 0.6 - 0.9 cm LVPW Diastolic Thickness 1.1 cm 0.6 - 1.0 / 0.6 - 0.9 cm LV Relative Wall Thickness 0.5 RV Internal Dim ED PLAX 3.2 cm LVOT Diameter 1.9 cm LA Systolic Diameter LX 3.0 cm 3.0 - 4.0 / 2.7 - 3.8 cm LV Diastolic Volume MOD BP 43.5 cm??? 67 - 155 / 56 - 104 cm??? LV Systolic Volume MOD BP 21.8 cm??? - 58 / 19 - 49 cm??? LV Ejection Fraction MOD BP 49.9 % >= 55 % LV Cardiac Index MOD BP 1110.6 cm???/min???m??? LV Diastolic Volume MOD 4C 39.6 cm??? LV Systolic Volume MOD 4C 19.4 cm??? LV Ejection Fraction MOD 4C 51.1 % LV Cardiac Index MOD 4C 1035.3 cm???/min???m??? LV Diastolic Length 4C 5.9 cm LV Systolic Length 4C 4.8 cm LV Diastolic Volume MOD 2C 46.9 cm??? LV Systolic Volume MOD 2C 23.3 cm??? LV Ejection Fraction MOD 2C 50.4 % LV Cardiac Index MOD 2C 1208.6 cm???/min???m??? LV Diastolic Length 2C 5.8 cm LV Systolic Length 2C 5.1 cm LA Volume 41.9 cm??? 18 - 58 / 22 - 52 cm??? LA Volume Index 26.1 cm???/m??? 16 - 28 cm???/m??? DOPPLER LVOT Peak Velocity 100.3 cm/s LVOT Peak Gradient 4.0 mmHg LVOT Velocity Time Integral 20.6 cm LVOT Stroke Volume 57.1 cm??? LVOT Stroke Volume Index 34.7 ml/m??? LVOT Cardiac Index 2919.0 cm???/min???m??? MV Area PHT 3.4 cm??? Mitral E Point Velocity 73.8 cm/s Mitral A Point Velocity 85.4 cm/s Mitral E to A Ratio 0.9 MV Deceleration Time 220.5 ms MV E' Velocity 6.2 cm/s Mitral E to MV E' Ratio 11.9 TR Peak Velocity 313.8 cm/s TR Peak Gradient 39.4 mmHg Right Ventricular Systolic Press 42.4 mmHg FINDINGS Left Ventricle Left ventricular cavity size normal. Mild concentric left ventricular hypertrophy. No obvious regional wall motion abnormalities. Left ventricular ejection fraction is estimated at 55-60 %. Grade 1 diastolic dysfunction. Right Ventricle Normal right ventricular size and function. Moderate pulmonary hypertension. Right ventricular systolic pressure estimated at 45 mm hg. Right Atrium Normal right atrial size. Left Atrium Mild left atrial dilatation. Interatrial septal aneurysm. Mitral Valve Structurally normal mitral valve. Mild mitral annular calcification. Mild mitral regurgitation. Aortic Valve Trileaflet aortic valve. No aortic stenosis. No aortic regurgitation. Aortic valve sclerosis. Tricuspid Valve Structurally normal tricuspid valve. Dpuf-[id number] tricuspid regurgitation. Pulmonic Valve Structurally normal pulmonic valve. Trace pulmonic regurgitation. Pericardium No pericardial effusion. Aorta Normal size aortic root and proximal ascending aorta. CONCLUSIONS Normal biventricular systolic function No significant valvular abnormalities noted Moderate pulmonary hypertension Mild to moderate tricuspid regurgitation No pericardial effusion Previewed by: Dr. Agustin Moore MD (Electronically Signed) Final Date: 28 November 2024 16:21
[2024-11-28] MEDS: AZTREONAM 2 GM in SODIUM CHLORIDE 0.9% 100 ML IVPB SCH (17:23)
--- NOTE | 2024-11-28 18:04 | P.CONS ---
History of Present Illness - Reason for Consult Consult date: 11/28/24 Colovesical fistula Requesting physician: Maddy Chan - Chief Complaint Abdominal pain x 2 days - History of Present Illness Patient is a 89-year-old female with a past medical history significant for CVA hypertension osteoarthritis history of recurrent UTIs in this patient has been recently diagnosed with a possible colovesical fistula patient last urine culture negative and she was discharged on oral Levaquin and Flagyl because of her multiple antibiotic allergies patient now presenting back to the hospital concerning for worsening left-sided abdominal pain that apparently getting worse over the last day or 2 before presentation to the hospital patient is currently the pain to be almost 8 out of 10 without any radiation with associated nausea vomiting patient denies having any diarrhea or any worsening constipation and denies high-grade fever on presentation to the hospital the patient was afebrile no fever have been called subsequently patient was nontachycardic hypotensive or hypoxic no need for supplemental oxygen white count was 7.8 creatinine is 0.90 electrolyte has been normal liver isms are normal urine has been positive cultures are pending did have abdominal pelvis CT diverticulosis last 2 g throughout the colon distended urinary bladder with large amount of gas patient has been in the hospital started on Levaquin and Flagyl infectious he was consulted today concerning for colovesical fistula and antibiotic treatment Review of Systems Positive point and negatives has been mentioned in the HPI, complete review of systems was performed and all other systems are negative Past Medical History Past Medical History: CVA/TIA, Hypertension, Osteoarthritis (OA) Additional Past Medical History / Comment(s): possible TIA 2015, hx fx v ertebrae in back., back pain, osteoporosis. History of Any Multi-Drug Resistant Organisms: None Reported Past Surgical History: Hysterectomy, Joint Replacement Additional Past Surgical History / Comment(s): colonoscopy, total rt knee Past Anesthesia/Blood Transfusion Reactions: Previous Problems w/ Anesthesia, Postoperative Nausea & Vomiting (PONV) Additional Past Anesthesia/Blood Transfusion Reaction / Comm: passed out after discharge from colonoscopy and went by ambulance back to the ER. Past Psychological History: No Psychological Hx Reported Smoking Status: Former smoker Past Alcohol Use History: None Reported Additional Past Alcohol Use History / Comment(s): started smoking at age 20,smoked 1/2 ppd, quit in 1999 Past Drug Use History: None Reported - Past Family History Sister(s) Family Medical History: Cancer Additional Family Medical History / Comment(s): pancreatic cancer Mother Family Medical History: Hypertension, Osteoarthritis (OA) Father Additional Family Medical History / Comment(s): panic attacks and alcoholism Medications and Allergies Home Medications Medication Instructions Recorded Confirmed Type HYDROcodone/APAP 7.5-325MG [[place] 1 tab PO BID PRN 03/05/17 11/27/24 History 7.5-325] Cyclobenzaprine [Flexeril] 5 mg PO HS PRN 11/20/24 11/27/24 History Losartan [Cozaar] 50 mg PO DAILY 11/20/24 11/27/24 History Acetaminophen Tab [Tylenol] 650 mg PO Q6HR PRN tab 11/24/24 11/27/24 Rx Famotidine [Pepcid] 20 mg PO HS #30 tab 11/24/24 11/27/24 Rx Lactulose [Cephulac] 30 gm PO TID #360 ml 11/24/24 11/27/24 Rx Levofloxacin [Levaquin] 750 mg PO HS 14 Days #14 tab 11/24/24 11/27/24 Rx metroNIDAZOLE [Flagyl] 500 mg PO TID 14 Days #42 tab 11/24/24 11/27/24 Rx Allergies Allergy/AdvReac Type Severity Reaction Status Date / Time alendronate sodium Allergy Unknown Verified 11/27/24 19:26 [From Fosamax] ceftriaxone [From Rocephin] Allergy Unknown Verified 11/27/24 19:26 Penicillins Allergy Unknown Verified 11/27/24 19:26 Dcmsbag-CCM-MwU Reductase Allergy Unknown Verified 11/27/24 19:26 Inhibitor [Lmunpxv-Vgq-Nrr Reductase Inhibitor] sulfamethoxazole Allergy facial Verified 11/27/24 19:26 [From Bactrim] swelling trimethoprim [From Bactrim] Allergy facial Verified 11/27/24 19:26 swelling amoxicillin AdvReac mouth Verified 11/27/24 19:26 blisters bacitracin AdvReac blisters Verified 11/27/24 19:26 [From Neosporin ([id number])] bacitracin zinc AdvReac blisters Verified 11/27/24 19:26 [From Neosporin ([id number]-drm-[id number])] neomycin sulfate AdvReac blisters Verified 11/27/24 19:26 [From Neosporin ([id number]-pxg-[id number])] polymyxin B AdvReac blisters Verified 11/27/24 19:26 [From Neosporin (lln-ria-daccz)] Physical Exam Vitals: Vital Signs Temp Pulse Pulse Resp BP BP Pulse Ox 11/28/24 07:06 97.9 F 97 16 153/83 98 11/28/24 02:00 97.7 F 68 17 104/49 92 L 11/27/24 22:32 86 115/73 98 11/27/24 20:23 70 18 174/70 97 11/27/24 17:10 97.9 F 71 140/74 98 Intake and Output 11/27/24 11/28/24 11/28/24 22:59 06:59 14:59 Other: Voiding Method Toilet Incontinent Diaper Weight 54.431 kg 54.431 kg GENERAL DESCRIPTION: Elderly female lying in bed, no distress. No tachypnea or accessory muscle of respiration use. HEENT: Shows Pallor , no scleral icterus. Oral mucous membrane is dry. NECK: Trachea central, no thyromegaly. LUNGS: Unlabored breathing. Clear to auscultation anteriorly. No wheeze or crackle. HEART: S1, S2, regular rate and rhythm. No loud murmur ABDOMEN: Soft, mild tenderness , no guarding or rigidity, no organomegaly EXTREMITIES: No edema of feet. SKIN: No rash, no masses palpable. NEUROLOGICAL: The patient is awake, alert, oriented x3, mood and affect normal. Results CBC & Chem 7: 11/27/24 13:23 11/27/24 13:23 Labs: Abnormal Lab Results - Last 24 Hours (Table) 11/27/24 11/27/24 11/27/24 Range/Units 13:00 13:23 13:23 Lymphocytes # 0.9 L (1.0-4.8) k/uL Sodium 134 L (137-145) mmol/L BUN 20 H (7-17) mg/dL Glucose 106 H (74-99) mg/dL Urine Appearance Cloudy H (Clear) Urine Protein Trace H (Negative) Urine Blood Moderate H (Negative) Ur Leukocyte Esterase Large H (Negative) Urine RBC 29 H (0-5) /hpf Urine WBC >182 H (0-5) /hpf Urine WBC Clumps Few H (None) /hpf Urine Bacteria Rare H (None) /hpf Urine Mucus Rare H (None) /hpf Assessment and Plan (1) Abnormal urinalysis Current Visit: No Status: Acute Code(s): R82.90 - UNSPECIFIED ABNORMAL FINDINGS IN URINE SNOMED Code(s): 030108199 (2) Allergy to multiple antibiotics Current Visit: No Status: Acute Code(s): Z88.1 - ALLERGY STATUS TO OTHER ANTIBIOTIC AGENTS SNOMED Code(s): 415819356 (3) Colovesical fistula Current Visit: No Status: Acute Code(s): N32.1 - VESICOINTESTINAL FISTULA SNOMED Code(s): 81305033 Plan: 1patient presented to hospital with worsening abdominal pain did have significant abnormality on the CT concerning for significant mount of gas in the bladder likely related to colovesical fistula with significantly positive UA 2-patient with multiple antibiotic ALLERGIES that would limit the number of antibiotic safe to use 3-discontinue Levaquin 4-we will start the patient on Azactam 2 g 8-hour continue with IV Flagyl Patient benefit from surgical repair of this fistula to prevent recurrent UTIs has been explained detail with the patient and the family at the bedside We will follow on clinical condition and cultures to further adjust medication if needed Thank you for this consultation we will follow the patient along with you Dictation was produced using [employer] dictation software. please excuse any grammatical, word or spelling errors. Time with Patient: Greater than 30
[2024-11-28] MEDS: FAMOTIDINE 20 MG TAB PO SCH (22:33)
[2024-11-29] MEDS: PHENAZOPYRIDINE 100 MG TAB PO SCH (08:25)
[2024-11-29] MEDS: ENOXAPARIN 40 MG/0.4 ML SYRINGE SQ SCH (08:25)
--- NOTE | 2024-11-29 09:48 | P.PN ---
Subjective Progress Note Date: 11/29/24 Principal diagnosis: Enterovesical fistula Patient feels somewhat better after Arias catheter placement yesterday. Urine is relatively clear. Cultures are pending. She is afebrile. Patient says she feels weak. Objective - Vital Signs Vital signs: Vital Signs Temp 98.0 F 11/29/24 07:20 Pulse 95 11/29/24 07:20 Resp 16 11/29/24 07:20 BP 129/76 11/29/24 07:20 Pulse Ox 95 11/29/24 07:20 FiO2 Intake & Output 11/28/24 11/29/24 11/29/24 18:59 06:59 18:59 Output Total 1600 Balance -1600 Weight 54.431 kg Output: Urine 1600 Other: Voiding Method Incontinent Indwelling Catheter Indwelling Catheter - Exam Abdomen: Soft, nondistended, mild lower abdominal tenderness - Labs CBC & Chem 7: 11/27/24 13:23 11/27/24 13:23 Labs: Microbiology - Last 24 Hours (Table) 11/27/24 13:00 Urine Culture - Preliminary Urine,Voided Assessment and Plan (1) Colovesical fistula Narrative/Plan: 89-year-old female with colovesical fistula. Patient feels somewhat better after Arias catheter placement. Await final recommendations from cardiology regarding clearance. Continue antibiotics. Follow cultures. Dr. Woodall to reevaluate patient tomorrow. Current Visit: No Status: Acute Code(s): N32.1 - VESICOINTESTINAL FISTULA SNOMED Code(s): 52770842
[2024-11-29 11:16] LABS: Basophils # (A) 0.03 X 10*3/uL (0.00-0.10); Basophils % (A) 0.4 %; Eosinophils # (A) 0.09 X 10*3/uL (0.04-0.35); Eosinophils % (A) 1.3 %; HCT 37.8 % (37.2-46.3); HGB 11.7 g/dL (12.0-15.0); Lymphocytes # (A) 1.54 X 10*3/uL (0.90-5.00); MCH 31.2 pg (27.0-32.0); MCV 100.8 FL (80.0-97.0); Mean Platelet Volume 9.9 FL (9.5-12.2); Monocytes # (A) 0.74 X 10*3/uL (0.20-1.00); Monocytes % (A) 10.6 %; NRBC Per 100 WBC 0 X 10*3/uL (0.00-0.01); Neutrophils # (A) 4.57 X 10*3/uL (1.80-7.70); Neutrophils % (A) 65.4 %; Platelet Count 215 X 10*3/uL (140-440); RBC 3.75 X 10*6/uL (4.10-5.20); RDW 13.2 % (11.5-14.5); WBC 6.99 X 10*3/uL (4.50-10.00)
[2024-11-29 11:23] LABS: Blood Urea Nitrogen 15.3 mg/dL (9.0-27.0); Chloride 108 mmol/L (96-109); Glucose 108 mg/dL (70-110); Potassium 4.5 mmol/L (3.5-5.5); Sodium 139 mmol/L (135-145)
[2024-11-29 11:24] LABS: Calcium 8.2 mg/dL (8.7-10.3); Carbon Dioxide 22.2 mmol/L (21.6-31.8)
--- NOTE | 2024-11-29 14:40 | P.PN ---
Subjective Progress Note Date: 11/29/24 Principal diagnosis: Reason for follow-up is colovesical fistula/UTI Patient is a 89-year-old female with a past medical history significant for CVA hypertension osteoarthritis history of recurrent UTIs in this patient has been recently diagnosed with a possible colovesical fistula, presenting back to the hospital with worsening abdominal pain did have a Arias catheter placement On today's evaluation that is 11/29/2024, Patient is afebrile patient is currently on room air and denies having any shortness of breath, the patient denies any chest pain or cough, the patient denies any nausea vomiting abdominal pain decreased in intensity did have 4 bowel movement yesterday as reported by the nursing staff. Patient white count 6.99 creatinine 0.9 cultures currently pending Objective - Vital Signs Vital signs: Vital Signs Temp 98.0 F 11/29/24 07:20 Pulse 95 11/29/24 07:20 Resp 16 11/29/24 07:20 BP 129/76 11/29/24 07:20 Pulse Ox 95 11/29/24 07:20 FiO2 Intake & Output 11/28/24 11/29/24 11/29/24 18:59 06:59 18:59 Output Total 1600 Balance -1600 Weight 54.431 kg Output: Urine 1600 Other: Voiding Method Incontinent Indwelling Catheter Indwelling Catheter - Exam GENERAL DESCRIPTION: An elderly female up in the room in no distress RESPIRATORY SYSTEM: Unlabored breathing , decreased breath sounds at bases HEART: S1 S2 regular rate and rhythm , ABDOMEN: Soft , no tenderness EXTREMITIES: No edema feet - Labs CBC & Chem 7: 11/29/24 04:08 11/29/24 04:08 Labs: Abnormal Lab Results - Last 24 Hours (Table) 11/29/24 11/29/24 Range/Units 04:08 04:08 RBC 3.75 L (4.10-5.20) X 10*6/uL Hgb 11.7 L (12.0-15.0) g/dL MCV 100.8 H (80.0-97.0) FL MCHC 31.0 L (32.0-37.0) g/dL Calcium 8.2 L (8.7-10.3) mg/dL Microbiology - Last 24 Hours (Table) 11/27/24 13:00 Urine Culture - Preliminary Urine,Voided Assessment and Plan (1) Abnormal urinalysis Current Visit: No Status: Acute Code(s): R82.90 - UNSPECIFIED ABNORMAL FINDINGS IN URINE SNOMED Code(s): 948846306 (2) Allergy to multiple antibiotics Current Visit: No Status: Acute Code(s): Z88.1 - ALLERGY STATUS TO OTHER ANTIBIOTIC AGENTS SNOMED Code(s): 599749047 (3) Colovesical fistula Current Visit: No Status: Acute Code(s): N32.1 - VESICOINTESTINAL FISTULA SNOMED Code(s): 29869139 Plan: 1patient presented to hospital with worsening abdominal pain did have significant abnormality on the CT concerning for significant mount of gas in the bladder likely related to colovesical fistula with significantly positive UA 2-patient with multiple antibiotic ALLERGIES that would limit the number of antibiotic safe to use 3-patient is currently being treated with Azactam 2 g 8-hour and IV Flagyl while waiting for the culture to finalize Dictation was produced using [employer] dictation software. please excuse any grammatical, word or spelling errors. Time with Patient: Less than 30
--- NOTE | 2024-11-29 14:42 | P.PN ---
Subjective Progress Note Date: 11/29/24 Patient is a 89-year-old female with past medical history of hypertension and CVA who came to the ER with a chief complaint of back pain, nausea, and vomiting which began yesterday. 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 At the time she was prescribed 2 antibiotics, but states she was unable to tolerate them. She states she was supposed to have surgery done and had an appointment to see cardiology for clearance outpatient. Besides the vomiting and back pain, the patient also endorses headaches, dysuria and some constipation. She denies fevers, chills, diarrhea, chest pain, shortness of breath. She denies any history of heart attacks, strokes, use of blood thinners. Vitals on admission temperature 97.5 F, heart rate 80 bpm, respiratory rate 18, blood pressure 132/76, O2 saturation 100% on room air EKG independently interpreted as sinus rhythm with frequent PVCs and PACs, ventricular rate 96 bpm and QTc of [address] of reinsertion of colonic diverticulosis, large stool burden throughout the colon, distended urinary bladder Labs on admission show WBC 7.8, hemoglobin 12.7, platelets 230. Sodium 134, potassium 4.4, chloride 1, bicarb 23, BUN 20, creatinine 0.9, glucose 106. UA was positive for blood, leukocyte esterase, bacteria, WBC 2/9. Patient seen and examined. No acute issues overnight. Patient continues to be afebrile. Blood cultures remain negative. REVIEW OF SYSTEMS: CONSTITUTIONAL: No fever, no malaise,. CARDIOVASCULAR: No chest pain, no palpitations, no syncope. PULMONARY: No shortness of breath, no cough, GASTROINTESTINAL: No diarrhea, no nausea, no vomiting, no abdominal pain. NEUROLOGICAL: No headaches, no weakness, PHYSICAL EXAMINATION: GENERAL: The patient is alert and oriented x3, not in any acute distress. Well developed, well nourished. HEENT: Pupils are round and equally reacting to light. EOMI. No scleral icterus. No conjunctival pallor. Normocephalic, atraumatic. No pharyngeal erythema. No thyromegaly. CARDIOVASCULAR: S1 and S2 present. No murmurs, rubs, or gallops. PULMONARY: Chest is clear to auscultation, no wheezing or crackles. ABDOMEN: Soft, nontender, nondistended, normoactive bowel sounds. No palpable organomegaly. MUSCULOSKELETAL: No joint swelling or deformity. EXTREMITIES: No cyanosis, clubbing, or pedal edema. NEUROLOGICAL: Gross neurological examination did not reveal any focal deficits. SKIN: No rashes. Assessment and plan Colovesical fistula History of complicated UTIs Monitor vital signs monitor CBC Monitor CMP Follow-up on urine cultures Continue aztreonam, Flagyl ID following Chronic: Hypertension Continue Cozaar 50 mg daily Constipation Continue lactulose 30g 3 times daily GERD Continue Pepcid 20 mg p.o. at bedtime History of degenerative joint disease Continue [place] 53 25 every 6 hours as needed Continue Flexeril 5 mg p.o. at bedtime as needed Labs and medication were reviewed.. Continue same treatment. Continue with symptomatic treatment. Resume home medication. Monitor labs and vitals. DVT and GI prophylaxis. Further recommendations as per clinical course of the patient Dictation was produced using [employer] dictation software. please excuse any grammatical, word or spelling errors. Objective - Vital Signs Vital signs: Vital Signs Temp 98.0 F 11/29/24 07:20 Pulse 95 11/29/24 07:20 Resp 16 11/29/24 07:20 BP 129/76 11/29/24 07:20 Pulse Ox 95 11/29/24 07:20 FiO2 Intake & Output 11/28/24 11/29/24 11/29/24 18:59 06:59 18:59 Output Total 1600 Balance -1600 Weight 54.431 kg Output: Urine 1600 Other: Voiding Method Incontinent Indwelling Catheter Indwelling Catheter - Labs CBC & Chem 7: 11/29/24 04:08 11/29/24 04:08 Labs: Abnormal Lab Results - Last 24 Hours (Table) 11/29/24 11/29/24 Range/Units 04:08 04:08 RBC 3.75 L (4.10-5.20) X 10*6/uL Hgb 11.7 L (12.0-15.0) g/dL MCV 100.8 H (80.0-97.0) FL MCHC 31.0 L (32.0-37.0) g/dL Calcium 8.2 L (8.7-10.3) mg/dL Microbiology - Last 24 Hours (Table) 11/27/24 13:00 Urine Culture - Preliminary Urine,Voided
--- NOTE | 2024-11-29 16:32 | P.PN ---
Subjective Progress Note Date: 11/29/24 Patient is a pleasant 89-year-old female patient with past medical history significant for hypertension who was admitted to the hospital with recurrent UTI she underwent further evaluation including CT scan which showed colovesical fistula and the plan is to pursue surgery for that and the consul is for preop cardiac assessment the patient lives by herself and she is very active physically. She walks her dog on is. She stated that she is able to achieve going to flights of stairs with no cardiovascular symptoms of any pain in the chest or shortness of breath or dizziness or lightheadedness or any feeling of heart racing or fluttering or presyncope or syncope. She does have hypertension and the pressure appears to be under good control on the current medical regimen. Unfortunately no EKG in the chart but the patient is in process of having an EKG also she is in process of having an echocardiogram. The physical examination is remarkable for regular rhythm with a soft systolic murmur at the right and left upper sternal border with clear breathing sounds bilaterally and no edema was noted. November 29, 2024 The patient was seen and evaluated this morning. She is asymptomatic from a car diovascular standpoint of view. She is stable in terms of the blood pressure as well. The EKG showed sinus mechanism with the echo showed preserved biventricular dimension and systolic function with no significant valvular abnormalities. From a cardiovascular standpoint of view, I would continue the current medical regimen and follow-up with the patient on as needed case. The physical examination is remarkable for regular rhythm with a soft systolic murmur and clear breathing sounds bilaterally and no edema was noted Assessment Colovesical fistula Hypertension Systolic murmur on examination Plan Patient can proceed with the surgery Follow-up with the patient on as needed case Objective - Vital Signs Vital signs: Vital Signs Temp 97.7 F 11/29/24 14:39 Pulse 86 11/29/24 14:39 Resp 18 11/29/24 14:39 BP 132/77 11/29/24 14:39 Pulse Ox 97 11/29/24 14:39 FiO2 Intake & Output 11/28/24 11/29/24 11/29/24 18:59 06:59 18:59 Output Total 1600 Balance -1600 Weight 54.431 kg Output: Urine 1600 Other: Voiding Method Incontinent Indwelling Catheter Indwelling Catheter - Labs CBC & Chem 7: 11/29/24 04:08 11/29/24 04:08 Labs: Abnormal Lab Results - Last 24 Hours (Table) 11/29/24 11/29/24 Range/Units 04:08 04:08 RBC 3.75 L (4.10-5.20) X 10*6/uL Hgb 11.7 L (12.0-15.0) g/dL MCV 100.8 H (80.0-97.0) FL MCHC 31.0 L (32.0-37.0) g/dL Calcium 8.2 L (8.7-10.3) mg/dL Microbiology - Last 24 Hours (Table) 11/27/24 13:00 Urine Culture - Preliminary Urine,Voided
[2024-11-29] MEDS ORDERED: LEVOFLOXACIN 750 MG TAB PO SCH (18:00)
--- NOTE | 2024-11-30 12:53 | P.PN ---
Subjective Progress Note Date: 11/30/24 CHIEF COMPLAINT: Colovesical fistula HISTORY OF PRESENT ILLNESS: Patient continues to have lower abdominal pain. She also cloudy urine. She has Arias catheter in place. Patient evaluated by cardiology and cleared for surgery. Afebrile. WBC 6.99 PHYSICAL EXAM: VITAL SIGNS: Reviewed GENERAL: Well-developed in no acute distress. HEENT: No sclera icterus. Extraocular movements grossly intact. Moist buccal mucosa. Head is atraumatic, normocephalic. Hears conversational speech. No nasal drainage. NECK: Supple without lymphadenopathy. CHEST: Non-labored respirations and equal bilateral excursions. CARDIOVASCULAR: Palpable 2+ radial pulses. ABDOMEN: Soft. Nondistended. MUSCULOSKELETAL: No clubbing or cyanosis. NEUROLOGIC: No focal or lateralizing signs. Cranial nerves II through XII grossly intact. PSYCH: Appropriate affect. Alert and oriented to person, place and time. SKIN: Well perfused. Good skin turgor. ASSESSMENT: 1. Colovesical fistula PLAN: -No surgical intervention planned at this time -Start full liquid diet Continue to monitor -Further recommendations forthcoming per surgeon Physician Space Planner note has been reviewed by physician. Signing provider agrees with the documented findings, assessment, and plan of care. Please see additional documentation per MD. CHIEF COMPLAINT: Colovesical fistula HISTORY OF PRESENT ILLNESS: The patient is a 89-year-old female with pre- existing history of colovesical fistula. She was recently hospitalized and discharged. Patient had noted that she did not want surgical intervention upon her last hospitalization. Patient returns with weakness. ROS: No reports of nausea and vomiting. No fevers or chills. No new chest pain. No productive sputum PHYSICAL EXAM: VITAL SIGNS: Reviewed CONSTITUTIONAL: Well developed and in no acute distress. EYES: Conjuctivae without sclera icterus. Extraocular movements grossly intact. HEAD, EARS, NOSE, THROAT: Moist buccal mucosa. Head is atraumatic, normoceph alic. Hears conversational speech. No nasal drainage. RESPIRATORY: Non-labored respirations and equal bilateral excursions. CARDIOVASCULAR: Palpable 2+ radial pulses. ABDOMEN: No peritonitis. MUSCULOSKELETAL: No gross deformity of the lower extremities noted. No clubbing. No cyanosis. SKIN: Good skin turgor. Well perfused. NEUROLOGIC: Cranial nerves II through XII grossly intact. No focal or lateralizing signs. PSYCH: Appropriate affect. Alert and oriented to person, place and time. CLINICAL LABS: Reviewed. WBC normal. ASSESSMENT: 1. Colovesical fistula PLAN: 1. May start diet. 2. Antibiotic management per infectious disease. 3. At this time, patient is not seeking surgical invention with a colostomy bag. Objective - Vital Signs Vital signs: Vital Signs Temp 97.5 F L 11/30/24 08:00 Pulse 69 11/30/24 08:00 Resp 18 11/30/24 08:00 BP 155/99 11/30/24 08:00 Pulse Ox 95 11/30/24 08:00 FiO2 Intake & Output 11/29/24 11/30/24 11/30/24 18:59 06:59 18:59 Output Total 1200 Balance -1200 Output: Urine 1200 Other: Voiding Method Indwelling Catheter Indwelling Catheter Indwelling Catheter - Labs CBC & Chem 7: 12/07/24 06:07 12/07/24 06:07 Labs: Microbiology - Last 24 Hours (Table) 11/27/24 13:00 Urine Culture - Final Urine,Voided Proteus mirabilis
--- NOTE | 2024-11-30 13:38 | P.PN ---
Subjective Progress Note Date: 11/30/24 Hospital Course: Patient is a 89-year-old female with past medical history of hypertension and CVA who came to the ER with a chief complaint of back pain, nausea, and vomiting which began yesterday. 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 At the time she was prescribed 2 antibiotics, but states she was unable to tolerate them. She states she was supposed to have surgery done and had an appointment to see cardiology for clearance outpatient. Besides the vomiting and back pain, the patient also endorses headaches, dysuria and some constipation. She denies fevers, chills, diarrhea, chest pain, shortness of breath. She denies any history of heart attacks, strokes, use of blood thinners. Subjective: Patient seen and examined at bedside. No acute events overnight or concerns from nursing. Patient denies any acute complaints at this time. Urine culture was positive for Proteus Mirabilis. Pertinent positives and negatives discussed above, a complete review of systems was preformed and all the other systems were negative. Vitals Signs Reviewed. General: non toxic, no distress, appears at stated age, normal weight Derm: no unusual rashes/lesions, warm Head: atraumatic, normocephalic, symmetric Eyes: EOMI, no lid lag, anicteric sclera, pupils equal round reactive to light ENT: Nose and ears atraumatic Neck: No cervical lymphadenopathy, trachea midline, supple Mouth: no lip lesion, mucus membranes moist Cardiovascular: Systolic murmur Lungs: Equal air entry bilaterally, no rhonchi, no rales, no accessory muscle use Abdominal: soft, nontender to palpation, no guarding Ext: muscle strength 5 out of 5 in all 4 extremities grossly, no gross muscle atrophy, no contractures, Neuro: CN II-XI grossly intact, no gross focal neuro deficits Psych: Alert, oriented, appropriate affect Labs: Urine culture was positive for Proteus Mirabellis Imaging: Echocardiogram shows normal biventricular systolic function, moderate pulmonary hypertension, mild to moderate TR Assessment and Plan: Patient is a 89-year-old female with past medical history of hypertension and CVA who came to the ER with chief complaint of back pain, nausea, and vomiting. Active: Colovesical fistula History of complicated UTIs Continue Flagyl 500 mg every 8 hours Continue aztreonam 2 g every 8 hours General surgery consulted Cardiology has cleared for surgery Infectious disease consulted Continue IV fluids Echocardiogram findings above Urine culture findings above Arias catheter in place Chronic: Hypertension Continue Cozaar 50 mg daily Constipation Continue lactulose 30g 3 times daily GERD Continue Pepcid 20 mg p.o. at bedtime History of degenerative joint disease Continue [place] 53 25 every 6 hours as needed Continue Flexeril 5 mg p.o. at bedtime as needed F: 0.9% NS at 75 mL/h E: Replete as needed N: N.p.o. after midnight A: As tolerated DVT prophylaxis: Lovenox 40 mg subcu daily The patient is admitted with an anticipated more than 2 midnight stay for evaluation of colovesical fistula and complicated UTI CODE STATUS: Full code Discussed with: Patient Anticipated discharge place: Pending clinical course Attestation I have seen and examined this patient with my resident , discussed the same with the resident/MARLO, and agree with the dictator's assessment and plan as written GENERAL: The patient is alert and oriented x3, not in any acute distress. Well developed, well nourished. HEENT: Pupils are round and equally reacting to light. EOMI. No scleral icterus. No conjunctival pallor. Normocephalic, atraumatic. No pharyngeal erythema. No thyromegaly. CARDIOVASCULAR: S1 and S2 present. No murmurs, rubs, or gallops. PULMONARY: Chest is clear to auscultation, no wheezing or crackles. ABDOMEN: Soft, nontender, nondistended, normoactive bowel sounds. No palpable organomegaly. MUSCULOSKELETAL: No joint swelling or deformity. EXTREMITIES: No cyanosis, clubbing, or pedal edema. NEUROLOGICAL: Gross neurological examination did not reveal any focal deficits. SKIN: No rashes. Dr. Tan vazquez Objective - Vital Signs Vital signs: Vital Signs Temp 98.3 F 11/30/24 00:11 Pulse 69 11/30/24 00:11 Resp 18 11/30/24 00:11 BP 124/81 11/30/24 00:11 Pulse Ox 93 L 11/30/24 00:11 FiO2 Intake & Output 11/29/24 11/30/24 11/30/24 18:59 06:59 18:59 Output Total 1200 Balance -1200 Output: Urine 1200 Other: Voiding Method Indwelling Catheter Indwelling Catheter - Labs CBC & Chem 7: 11/29/24 04:08 11/29/24 04:08 Labs: Abnormal Lab Results - Last 24 Hours (Table) 11/29/24 11/29/24 Range/Units 04:08 04:08 RBC 3.75 L (4.10-5.20) X 10*6/uL Hgb 11.7 L (12.0-15.0) g/dL MCV 100.8 H (80.0-97.0) FL MCHC 31.0 L (32.0-37.0) g/dL Calcium 8.2 L (8.7-10.3) mg/dL Microbiology - Last 24 Hours (Table) 11/27/24 13:00 Urine Culture - Preliminary Urine,Voided
--- NOTE | 2024-11-30 21:28 | P.PN ---
Subjective Progress Note Date: 11/30/24 Principal diagnosis: Reason for follow-up is colovesical fistula/UTI Patient is a 89-year-old female with a past medical history significant for CVA hypertension osteoarthritis history of recurrent UTIs in this patient has been recently diagnosed with a possible colovesical fistula, presenting back to the hospital with worsening abdominal pain did have a Arias catheter placement On today's evaluation that is 11/30/2024, patient has been afebrile, patient is breathing comfortably and is currently on room air, patient denies having any significant cough no chest pain, patient denies nausea vomiting or diarrhea and no abdominal pain has been complaining of pain mostly lower back area. Patient did not have a lab draw today [facility] final [facility] Objective - Vital Signs Vital signs: Vital Signs Temp 97.5 F L 11/30/24 08:00 Pulse 69 11/30/24 08:00 Resp 18 11/30/24 08:00 BP 155/99 11/30/24 08:00 Pulse Ox 95 11/30/24 08:00 FiO2 Intake & Output 11/29/24 11/30/24 11/30/24 18:59 06:59 18:59 Output Total 1200 Balance -1200 Output: Urine 1200 Other: Voiding Method Indwelling Catheter Indwelling Catheter - Exam GENERAL DESCRIPTION: An elderly female up in the room in no distress RESPIRATORY SYSTEM: Unlabored breathing , decreased breath sounds at bases HEART: S1 S2 regular rate and rhythm , ABDOMEN: Soft , no tenderness EXTREMITIES: No edema feet - Labs CBC & Chem 7: 11/29/24 04:08 11/29/24 04:08 Labs: Microbiology - Last 24 Hours (Table) 11/27/24 13:00 Urine Culture - Final Urine,Voided Proteus mirabilis Assessment and Plan (1) Abnormal urinalysis Current Visit: No Status: Acute Code(s): R82.90 - UNSPECIFIED ABNORMAL FINDINGS IN URINE SNOMED Code(s): 887623673 (2) Allergy to multiple antibiotics Current Visit: No Status: Acute Code(s): Z88.1 - ALLERGY STATUS TO OTHER ANTIBIOTIC AGENTS SNOMED Code(s): 220675394 (3) Colovesical fistula Current Visit: No Status: Acute Code(s): N32.1 - VESICOINTESTINAL FISTULA SNOMED Code(s): 84883717 Plan: 1patient presented to hospital with worsening abdominal pain did have significant abnormality on the CT concerning for significant mount of gas in the bladder likely related to colovesical fistula with significantly positive UA 2-patient with multiple antibiotic ALLERGIES that would limit the number of antibiotic safe to use 3-patient urine has been finalized with the Proteus that is a sensitive pathogen however the patient did have multiple allergies continue Azactam 2 g 8-hour and IV Flagyl and monitor clinical course closely Dictation was produced using [employer] dictation software. please excuse any grammatical, word or spelling errors. Time with Patient: Less than 30
--- NOTE | 2024-12-01 11:57 | P.PN ---
Subjective Progress Note Date: 12/01/24 CHIEF COMPLAINT: Colovesical fistula HISTORY OF PRESENT ILLNESS: Patient appears weak laying in bed. She reports some discomfort in the lower abdomen. She has a Arias catheter in place. Urine slightly cloudy. She did have a temp of 100.2 last night. Mildly tachycardic, now improved. PHYSICAL EXAM: VITAL SIGNS: Reviewed GENERAL: Well-developed in no acute distress. HEENT: No sclera icterus. Extraocular movements grossly intact. Moist buccal mucosa. Head is atraumatic, normocephalic. Hears conversational speech. No nasal drainage. NECK: Supple without lymphadenopathy. CHEST: Non-labored respirations and equal bilateral excursions. CARDIOVASCULAR: Palpable 2+ radial pulses. ABDOMEN: Soft. Nondistended. Mild tenderness with palpation across lower abdomen MUSCULOSKELETAL: No clubbing or cyanosis. NEUROLOGIC: No focal or lateralizing signs. Cranial nerves II through XII grossly intact. PSYCH: Appropriate affect. Alert and oriented to person, place and time. SKIN: Well perfused. Good skin turgor. ASSESSMENT: 1. Colovesical fistula PLAN: -Patient being scheduled for a diverting colostomy during this admission -Continue antibiotics -Continue heart healthy diet -Continue protein supplement Physician Therapist Occupational note has been reviewed by physician. Signing provider agrees with the documented findings, assessment, and plan of care. Please see additional documentation per MD. CHIEF COMPLAINT: Colovesical fistula HISTORY OF PRESENT ILLNESS: The patient is a 89-year-old female with pre- existing history of colovesical fistula. She is having fevers. She reports lower abdominal pain. Patient has been seen by multiple consultants. ROS: She reports low appetite. No new chest pain. No productive sputum PHYSICAL EXAM: VITAL SIGNS: Reviewed CONSTITUTIONAL: Well developed and in no acute distress. EYES: Conjuctivae without sclera icterus. Extraocular movements grossly intact. HEAD, EARS, NOSE, THROAT: Moist buccal mucosa. Head is atraumatic, normo cephalic. Hears conversational speech. No nasal drainage. RESPIRATORY: Non-labored respirations and equal bilateral excursions. CARDIOVASCULAR: Palpable 2+ radial pulses. ABDOMEN: No peritonitis. MUSCULOSKELETAL: No gross deformity of the lower extremities noted. No clubbing. No cyanosis. SKIN: Good skin turgor. Well perfused. NEUROLOGIC: Cranial nerves II through XII grossly intact. No focal or lateralizing signs. PSYCH: Appropriate affect. Alert and oriented to person, place and time. : Arias with stool. CLINICAL LABS: Reviewed. WBC normal. ASSESSMENT: 1. Colovesical fistula 2. Fevers. PLAN: 1. Due to patient's pre-existing frail state, recommend protein intake over 60 g daily. 2. Continue Arias catheter. 3. Antibiotic management per infectious disease. Objective - Vital Signs Vital signs: Vital Signs Temp 97.4 F L 12/01/24 06:58 Pulse 93 12/01/24 06:58 Resp 18 12/01/24 06:58 BP 159/64 12/01/24 06:58 Pulse Ox 96 12/01/24 06:58 FiO2 Intake & Output 11/30/24 12/01/24 12/01/24 18:59 06:59 18:59 Output Total 900 1600 Balance -900 -1600 Output: Urine 900 1600 Other: Voiding Method Indwelling Catheter Indwelling Catheter Indwelling Catheter - Labs CBC & Chem 7: 12/07/24 06:07 12/07/24 06:07 Labs: Microbiology - Last 24 Hours (Table) 11/27/24 13:00 Urine Culture - Final Urine,Voided Proteus mirabilis
--- NOTE | 2024-12-01 13:14 | P.PN ---
Subjective Progress Note Date: 12/01/24 Principal diagnosis: Hospital course: Patient is a 89-year-old female with past medical history of hypertension and CVA who came to the ER with a chief complaint of back pain, nausea, and vomiting which began yesterday. 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 At the time she was prescribed 2 antibiotics, but states she was unable to tolerate them. She states she was supposed to have surgery done and had an appointment to see cardiology for clearance outpatient. Besides the vomiting and back pain, the patient also endorses headaches, dysuria and some constipation. She denies fevers, chills, diarrhea, chest pain, shortness of breath. She denies any history of heart attacks, strokes, use of blood thinners. Vitals on admission temperature 97.5 F, heart rate 80 bpm, respiratory rate 18, blood pressure 132/76, O2 saturation 100% on room air EKG independently interpreted as sinus rhythm with frequent PVCs and PACs, ventricular rate 96 bpm and QTc of [address] of abdomen and pelvis shows reinsertion of colonic diverticulosis, large stool burden throughout the colon, distended urinary bladder Labs on admission show WBC 7.8, hemoglobin 12.7, platelets 230. Sodium 134, potassium 4.4, chloride 1, bicarb 23, BUN 20, creatinine 0.9, glucose 106. UA was positive for blood, leukocyte esterase, bacteria, WBC /. Patient seen and examined. No acute issues overnight. Patient continues to be afebrile. Blood cultures remain negative. 11/30. Patient seen and examined at bedside. No acute events overnight or concerns from nursing. Patient denies any acute complaints at this time. Urine culture was positive for Proteus Mirabilis. Echocardiogram shows normal biventricular systolic function, moderate pulmonary hypertension, mild to moderate TR 12/01/24: Patient evaluated today. No acute events overnight. General surgery recommend robotic low anterior resection colectomy on Saturday12/04/24. Review of systems: Pertinent positives and negatives as discussed in HPI, a complete review of systems was performed and all other systems are negative. Vitals: Signs Reviewed Physical examination: General: non toxic, no distress, appears at stated age, normal weight Derm: no unusual rashes/lesions, warm Head: atraumatic, normocephalic, symmetric Eyes: EOMI, no lid lag, anicteric sclera, pupils equal round reactive to light ENT: Nose and ears atraumatic Neck: No cervical lymphadenopathy, trachea midline, supple Mouth: no lip lesion, mucus membranes moist Cardiovascular: Systolic murmur Lungs: Equal air entry bilaterally, no rhonchi, no rales, no accessory muscle use Abdominal: soft, nontender to palpation, no guarding Ext: muscle strength 5 out of 5 in all 4 extremities grossly, no gross muscle atrophy, no contractures, Neuro: CN II-XI grossly intact, no gross focal neuro deficits Psych: Alert, oriented, appropriate affect Assessment/Plan: Patient is a 89-year-old female with past medical history of hypertension and C VA who came to the ER with chief complaint of back pain, nausea, and vomiting. Active: #. Colovesical fistula #. History of complicated UTIs Urine culture was positive for Proteus Mirabilis Continue Flagyl 500 mg every 8 hours Continue aztreonam 2 g every 8 hours Continue IV fluids Arias catheter in place Infectious disease is following General surgery is following, recommend robotic low anterior resection colectomy on Saturday12/04/24 Heart healthy diet per general surgery Cardiology consulted, patient cleared for surgery, Echocardiogram shows normal b iventricular systolic function, moderate pulmonary hypertension, mild to moderate TR PT consulted, recommend if pt progresses well and is able to achieve PT goals by d/c she would be safe to retruern home with family support and home care vs LD. Discussed with manager of case management. Will re-assess d/c recs as pt progresses Chronic: #. Hypertension Continue Cozaar 50 mg daily #. Constipation Continue lactulose 30g 3 times daily #. GERD Continue Pepcid 20 mg p.o. at bedtime #. History of degenerative joint disease Continue [place] 53 25 every 6 hours as needed Continue Flexeril 5 mg p.o. at bedtime as needed F: 0.9% NS at 75 mL/h E: Replete as needed N: Heart healthy diet DVT prophylaxis: Lovenox 40 mg subcu daily and SCD GI prophylaxis: Famotidine 20 mg PO HS Attestation I have seen and examined this patient with my resident , discussed the same with the resident/MARLO, and agree with the dictator's assessment and plan as written GENERAL: The patient is alert and oriented x3, not in any acute distress. Well developed, well nourished. HEENT: Pupils are round and equally reacting to light. EOMI. No scleral icterus. No conjunctival pallor. Normocephalic, atraumatic. No pharyngeal erythema. No thyromegaly. CARDIOVASCULAR: S1 and S2 present. No murmurs, rubs, or gallops. PULMONARY: Chest is clear to auscultation, no wheezing or crackles. ABDOMEN: Soft, nontender, nondistended, normoactive bowel sounds. No palpable organomegaly. MUSCULOSKELETAL: No joint swelling or deformity. EXTREMITIES: No cyanosis, clubbing, or pedal edema. NEUROLOGICAL: Gross neurological examination did not reveal any focal deficits. SKIN: No rashes. Dr. Tan vazquez Objective - Vital Signs Vital signs: Vital Signs Temp 97.4 F L 12/01/24 06:58 Pulse 93 12/01/24 06:58 Resp 18 12/01/24 06:58 BP 159/64 12/01/24 06:58 Pulse Ox 96 12/01/24 06:58 FiO2 Intake & Output 11/30/24 12/01/24 12/01/24 18:59 06:59 18:59 Output Total 900 1600 Balance -900 -1600 Output: Urine 900 1600 Other: Voiding Method Indwelling Catheter Indwelling Catheter - Labs CBC & Chem 7: 12/02/24 02:47 12/02/24 02:47 Labs: Microbiology - Last 24 Hours (Table) 11/27/24 13:00 Urine Culture - Final Urine,Voided Proteus mirabilis
--- NOTE | 2024-12-01 13:50 | P.PN ---
Subjective Progress Note Date: 12/01/24 Principal diagnosis: Reason for follow-up is colovesical fistula/UTI Patient is a 89-year-old female with a past medical history significant for CVA hypertension osteoarthritis history of recurrent UTIs in this patient has been recently diagnosed with a possible colovesical fistula, presenting back to the hospital with worsening abdominal pain did have a Arias catheter placement On today's evaluation that is 12/01/2024, Patient is afebrile this morning however did have low-grade fever 100.2 F last evening patient denies having any chest pain shortness of breath or cough, the patient is currently on room air, patient denies any worsening abdominal pain no diarrhea no nausea no vomiting. No new lab has been repeated today Objective - Vital Signs Vital signs: Vital Signs Temp 97.4 F L 12/01/24 06:58 Pulse 93 12/01/24 06:58 Resp 18 12/01/24 06:58 BP 159/64 12/01/24 06:58 Pulse Ox 96 12/01/24 06:58 FiO2 Intake & Output 11/30/24 12/01/24 12/01/24 18:59 06:59 18:59 Output Total 900 1600 Balance -900 -1600 Output: Urine 900 1600 Other: Voiding Method Indwelling Catheter Indwelling Catheter Indwelling Catheter - Exam GENERAL DESCRIPTION: An elderly female up in the room in no distress RESPIRATORY SYSTEM: Unlabored breathing , decreased breath sounds at bases HEART: S1 S2 regular rate and rhythm , ABDOMEN: Soft , no tenderness EXTREMITIES: No edema feet - Labs CBC & Chem 7: 11/29/24 04:08 11/29/24 04:08 Assessment and Plan (1) Abnormal urinalysis Current Visit: No Status: Acute Code(s): R82.90 - UNSPECIFIED ABNORMAL FINDINGS IN URINE SNOMED Code(s): 830442938 (2) Allergy to multiple antibiotics Current Visit: No Status: Acute Code(s): Z88.1 - ALLERGY STATUS TO OTHER ANTIBIOTIC AGENTS SNOMED Code(s): 980017604 (3) Colovesical fistula Current Visit: No Status: Acute Code(s): N32.1 - VESICOINTESTINAL FISTULA SNOMED Code(s): 13989215 Plan: 1patient presented to hospital with worsening abdominal pain did have significant abnormality on the CT concerning for significant mount of gas in the bladder likely related to colovesical fistula with significantly positive UA 2-patient with multiple antibiotic ALLERGIES that would limit the number of antibiotic safe to use 3-patient urine has been finalized with the Proteus that is a sensitive pathogen however the patient did have multiple allergies 4-day patient is currently being treated with Azactam 2 g 8-hour and IV Flagyl and await surgical correction of the colovesical fistula during this admission Dictation was produced using [employer] dictation software. please excuse any grammatical, word or spelling errors. Time with Patient: Less than 30
--- NOTE | 2024-12-01 22:57 | P.PN ---
Progress Note - Text Progress Note Date: 12/01/24 CHIEF COMPLAINT: Colovesical fistula HISTORY OF PRESENT ILLNESS: The patient is a 89-year-old female readmitted for recurrent urinary tract infection including colovesical fistula. Patient was reevaluated this evening by surgical team. Patient reports that she is eager to pursue some surgical intervention. No reports of abdominal pain at this time. She reports that she is drinking protein shakes at least 3 times daily which is disc concordant with discussion with her family yesterday evening. Patient also reports she is having multiple bowel movements. ROS: No reports of nausea and vomiting. No fevers or chills. No new chest pain. No productive sputum PHYSICAL EXAM: VITAL SIGNS: Reviewed CONSTITUTIONAL: Well developed and in no acute distress. EYES: Conjuctivae without sclera icterus. Extraocular movements grossly intact. HEAD, EARS, NOSE, THROAT: Moist buccal mucosa. Head is atraumatic, normocephalic. Hears conversational speech. No nasal drainage. RESPIRATORY: Non-labored respirations and equal bilateral excursions. CARDIOVASCULAR: Palpable 2+ radial pulses. ABDOMEN: Nontender. MUSCULOSKELETAL: No gross deformity of the lower extremities noted. No clubbing. No cyanosis. SKIN: Good skin turgor. Well perfused. NEUROLOGIC: Cranial nerves II through XII grossly intact. No focal or lateralizing signs. PSYCH: Appropriate affect. Alert and oriented to person, place and time. CLINICAL LABS: Reviewed. WBC normal. Hemoglobin down 12.7-11.7. Albumin 3.5 on admission. Creatinine 0.9 on admission. MICROBIOLOGY: Proteus Mirabella's resistant to Bactrim. REPORTS: Echocardiogram report reviewed demonstrate moderate pulmonary hypertension. Ejection fraction greater than 50% left ventricular infarction. STUDIES: CT of the abdomen pelvis on admission demonstrated moderate air within the bladder. Abnormal connection sigmoid colon to left lateral dome of bladder identified. This is my independent interpretation. No bowel obstruction. Severe sigmoid diverticulosis. ASSESSMENT: 1. 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 Recurrent urine tract infection due to diverticulitis PLAN: 1. Patient has persistent urinary tract infection ongoing for several weeks with recent diagnostic study demonstrating colovesical fistula per CT scan over 1 week ago. 2. Surgical options including diverting colostomy described in the presence of urgent surgical invention 3. Alternatives including low anterior resection sigmoid colectomy and takedown of bladder fistula were described however given the patient's presentation of low albumin and generalized weakness, patient is extremely high risk for complications including anastomotic leak. 4. Patient reports that she has been taking a protein shakes and would want to investigate colectomy. 5. Recommend barium enema to identify level of fistula tract for appropriate surgical resection 6. Do recommend colonoscopy prior to colectomy as well
[2024-12-02 08:40] LABS: HCT 40.5 % (37.2-46.3); HGB 13.5 g/dL (12.0-15.0); MCH 31.6 pg (27.0-32.0); MCHC 33.3 g/dL (32.0-37.0); MCV 94.8 FL (80.0-97.0); Mean Platelet Volume 10.4 FL (9.5-12.2); NRBC Per 100 WBC 0 X 10*3/uL (0.00-0.01); Platelet Count 205 X 10*3/uL (140-440); RBC 4.27 X 10*6/uL (4.10-5.20); RDW 13.3 % (11.5-14.5); WBC 4.79 X 10*3/uL (4.50-10.00)
--- NOTE | 2024-12-02 08:54 | XR ---
EXAMINATION TYPE: XR abdomen acute w CXR DATE OF EXAM: 12/02/2024 8:35 AM COMPARISON: Correlation CT 11/27/2024 CLINICAL INDICATION: Female, 89 years old with history of Abdominal pain; [facility] TECHNIQUE: Two radiographic views of the abdomen (upright and supine) and a frontal chest radiograph were obtained. FINDINGS CHEST: Heart normal size. Mild atherosclerotic arch calcifications. Biapical pleural parenchymal scarring. H yperinflation with mild interstitial density. Some strandy atelectasis left base. No consolidation or pleural effusion. Scattered colonic and small bowel air-fluid levels throughout. Air extends throughout the colon dista lly to the rectum. No frankly dilated small bowel loops are seen. No evidence for free intraperitoneal air. Vascular calcifications left upper quadrant. Degenerated dextroconvex curvature lumbar spine. IMPRESSION: 1. Chest with COPD. No definite acute process. 2. Nonspecific but overall nonobstructive bowel gas pattern given air-fluid levels throughout the sma ll bowel and colon. Consider generalized ileus or enteritis. [facility], , 12/02/2024 8:52 AM
[2024-12-02 09:19] LABS: ALT 26 U/L (8-44); AST 51 U/L (13-35); Albumin 3.2 g/dL (3.8-4.9); Albumin/Globulin Ratio 1.23 Ratio (1.60-3.17); Alkaline Phosphatase 75 U/L (41-126); Blood Urea Nitrogen 10.8 mg/dL (9.0-27.0); Calcium 8.2 mg/dL (8.7-10.3); Carbon Dioxide 21.1 mmol/L (21.6-31.8); Chloride 106 mmol/L (96-109); Globulin 2.6 g/dL (1.6-3.3); Glucose 147 mg/dL (70-110); Potassium 3.2 mmol/L (3.5-5.5); Sodium 140 mmol/L (135-145); Total Bilirubin <0.2 mg/dL (0.3-1.2); Total Protein 5.8 g/dL (6.2-8.2)
--- NOTE | 2024-12-02 11:31 | P.PN ---
Subjective Progress Note Date: 12/02/24 CHIEF COMPLAINT: Colovesical fistula HISTORY OF PRESENT ILLNESS: Patient currently sitting at bedside chair. Patient is now agreeable to proceed with colonoscopy. I have had multiple conversations with both patient and daughter at bedside. Both of them are now agreeable to proceed with colonoscopy tomorrow. Urine is slightly cloudy. Afebrile. WBC 4.79 Hgb 13.5 potassium 3.2 PHYSICAL EXAM: VITAL SIGNS: Reviewed GENERAL: Well-developed in no acute distress. HEENT: No sclera icterus. Extraocular movements grossly intact. Moist buccal mucosa. Head is atraumatic, normocephalic. Hears conversational speech. No nasal drainage. NECK: Supple without lymphadenopathy. CHEST: Non-labored respirations and equal bilateral excursions. CARDIOVASCULAR: Palpable 2+ radial pulses. ABDOMEN: Soft. Nondistended. Mild tenderness with palpation across lower abdomen MUSCULOSKELETAL: No clubbing or cyanosis. NEUROLOGIC: No focal or lateralizing signs. Cranial nerves II through XII grossly intact. PSYCH: Appropriate affect. Alert and oriented to person, place and time. SKIN: Well perfused. Good skin turgor. ASSESSMENT: 1. Colovesical fistula PLAN: -Patient scheduled for colonoscopy tomorrow with Dr. Woodall -Start stylemarksly bowel prep 2 L -Clear liquid diet today -N.p.o. after midnight -Patient tentatively scheduled for robotic lower anterior resection, colectomy on Saturday -Continue antibiotics -Replace potassium Physician Twisting Frame Operator note has been reviewed by physician. Signing provider agrees with the documented findings, assessment, and plan of care. See additional documentation per MD CHIEF COMPLAINT: Colovesical fistula HISTORY OF PRESENT ILLNESS: The patient is a 89-year-old female readmitted for recurrent urinary tract infection including colovesical fistula. Has had changed her mind from any surgical invention and now seeking colonoscopy. She is having bowel movements. ROS: No reports of nausea and vomiting. No fevers or chills. No new chest pain. No productive sputum PHYSICAL EXAM: VITAL SIGNS: Reviewed CONSTITUTIONAL: Well developed and in no acute distress. EYES: Conjuctivae without sclera icterus. Extraocular movements grossly intact. HEAD, EARS, NOSE, THROAT: Moist buccal mucosa. Head is atraumatic, normocephalic. Hears conversational speech. No nasal drainage. RESPIRATORY: Non-labored respirations and equal bilateral excursions. CARDIOVASCULAR: Palpable 2+ radial pulses. ABDOMEN: Nontender. MUSCULOSKELETAL: No gross deformity of the lower extremities noted. No clubbing. No cyanosis. SKIN: Good skin turgor. Well perfused. NEUROLOGIC: Cranial nerves II through XII grossly intact. No focal or lateralizing signs. PSYCH: Appropriate affect. Alert and oriented to person, place and time. CLINICAL LABS: Reviewed. WBC normal. ASSESSMENT: 1. 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 Recurrent urine tract infection due to diverticulitis PLAN: 1. Will need additional assessment for her colovesical fistula where colonoscopy would be helpful. 2. Due to her pre-existing history of severe constipation, do recommend with extensive bowel prep. 3. Options for diverting ostomy versus colectomy pending colonoscopy assessment Objective - Vital Signs Vital signs: Vital Signs Temp 98.0 F 12/02/24 08:12 Pulse 92 12/02/24 08:12 Resp 15 12/02/24 08:12 BP 107/67 12/02/24 08:12 Pulse Ox 95 12/02/24 08:12 FiO2 Intake & Output 12/01/24 12/02/24 12/02/24 18:59 06:59 18:59 Intake Total 1200 Output Total 2200 Balance 1200 -2200 Weight 54.431 kg Intake: Intake, IV Titration 1200 Amount Aztreonam 2 gm In Sodium 200 Chloride 0.9% 100 ml @ 33 .3 mls/hr IVPB Q8HR [facility] Rx#:[id number] Sodium Chloride 0.9% 1, 900 000 ml @ 75 mls/hr IV . [id number] [facility] Rx#:[id number] metroNIDAZOLE-NS PMX 500 100 mg In Saline 1 100ml.bag @ 100 mls/hr IVPB Q8H [facility] Rx#:[id number] Output: Urine 2200 Uretheral (Arias) 800 Other: Voiding Method Indwelling Catheter Indwelling Catheter # Bowel Movements 3 - Labs CBC & Chem 7: 12/07/24 06:07 12/07/24 06:07 Labs: Abnormal Lab Results - Last 24 Hours (Table) 12/02/24 Range/Units 02:47 Potassium 3.2 L (3.5-5.5) mmol/L Carbon Dioxide 21.1 L (21.6-31.8) mmol/L Anion Gap 12.90 H (4.00-12.00) mmol/L Glucose 147 H (70-110) mg/dL Calcium 8.2 L (8.7-10.3) mg/dL Total Bilirubin <0.2 L (0.3-1.2) mg/dL AST 51 H (13-35) U/L Total Protein 5.8 L (6.2-8.2) g/dL Albumin 3.2 L (3.8-4.9) g/dL Albumin/Globulin Ratio 1.23 L (1.60-3.17) Ratio
--- NOTE | 2024-12-02 11:34 | P.PN ---
Subjective Progress Note Date: 12/02/24 Principal diagnosis: Reason for follow-up is colovesical fistula/UTI Patient is a 89-year-old female with a past medical history significant for CVA hypertension osteoarthritis history of recurrent UTIs in this patient has been recently diagnosed with a possible colovesical fistula, presenting back to the hospital with worsening abdominal pain did have a Arias catheter placement On today's evaluation that is 12/02/2024,the patient has been afebrile she is breathing comfortably currently on room air no vomiting diarrhea and the changes has been reported still deciding about whether to go for surgery or not but is refusing colonoscopy and surgical team was talking to the patient. Patient white count is 4.79, creatinine 0.6 Objective - Vital Signs Vital signs: Vital Signs Temp 98.0 F 12/02/24 08:12 Pulse 92 12/02/24 08:12 Resp 15 12/02/24 08:12 BP 107/67 12/02/24 08:12 Pulse Ox 95 12/02/24 08:12 FiO2 Intake & Output 12/01/24 12/02/24 12/02/24 18:59 06:59 18:59 Intake Total 1200 Output Total 2200 Balance 1200 -2200 Weight 54.431 kg Intake: Intake, IV Titration 1200 Amount Aztreonam 2 gm In Sodium 200 Chloride 0.9% 100 ml @ 33 .3 mls/hr IVPB Q8HR [facility] Rx#:[id number] Sodium Chloride 0.9% 1, 900 000 ml @ 75 mls/hr IV . [id number] [facility] Rx#:[id number] metroNIDAZOLE-NS PMX 500 100 mg In Saline 1 100ml.bag @ 100 mls/hr IVPB Q8H [facility] Rx#:[id number] Output: Urine 2200 Uretheral (Arias) 800 Other: Voiding Method Indwelling Catheter Indwelling Catheter # Bowel Movements 3 - Exam GENERAL DESCRIPTION: An elderly female up in the room in no distress RESPIRATORY SYSTEM: Unlabored breathing , decreased breath sounds at bases HEART: S1 S2 regular rate and rhythm , ABDOMEN: Soft , no tenderness EXTREMITIES: No edema feet - Labs CBC & Chem 7: 12/02/24 02:47 12/02/24 02:47 Labs: Abnormal Lab Results - Last 24 Hours (Table) 12/02/24 Range/Units 02:47 Potassium 3.2 L (3.5-5.5) mmol/L Carbon Dioxide 21.1 L (21.6-31.8) mmol/L Anion Gap 12.90 H (4.00-12.00) mmol/L Glucose 147 H (70-110) mg/dL Calcium 8.2 L (8.7-10.3) mg/dL Total Bilirubin <0.2 L (0.3-1.2) mg/dL AST 51 H (13-35) U/L Total Protein 5.8 L (6.2-8.2) g/dL Albumin 3.2 L (3.8-4.9) g/dL Albumin/Globulin Ratio 1.23 L (1.60-3.17) Ratio Assessment and Plan (1) Abnormal urinalysis Current Visit: No Status: Acute Code(s): R82.90 - UNSPECIFIED ABNORMAL FINDINGS IN URINE SNOMED Code(s): 157645452 (2) Allergy to multiple antibiotics Current Visit: No Status: Acute Code(s): Z88.1 - ALLERGY STATUS TO OTHER ANTIBIOTIC AGENTS SNOMED Code(s): 532011907 (3) Colovesical fistula Current Visit: No Status: Acute Code(s): N32.1 - VESICOINTESTINAL FISTULA SNOMED Code(s): 00912722 Plan: 1patient presented to hospital with worsening abdominal pain did have significant abnormality on the CT concerning for significant mount of gas in the bladder likely related to colovesical fistula with significantly positive UA 2-patient with multiple antibiotic ALLERGIES that would limit the number of antibiotic safe to use 3-patient urine has been finalized with the Proteus that is a sensitive pathogen however the patient did have multiple allergies 4-patient is treated with Azactam 2 g 8-hour and IV Flagyl and await final surgical decision about surgery for repair of this fistula to help prevent recurrent UTIs and infection Dictation was produced using [employer] dictation software. please excuse any grammatical, word or spelling errors. Time with Patient: Less than 30
[2024-12-02] MEDS: PEG 3350 (420 GM/BTL) + LYTES 4,000 ML BOTTLE PO ONE (11:56)
[2024-12-02] MEDS: POTASSIUM CHLORIDE ER 20 MEQ TAB.ER PO STA (11:56)
--- NOTE | 2024-12-02 17:11 | P.PN ---
Subjective Progress Note Date: 12/02/24 Hospital Course: Patient is a 89-year-old female with past medical history of hypertension and CVA who came to the ER with a chief complaint of back pain, nausea, and vomiting which began yesterday. 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 At the time she was prescribed 2 antibiotics, but states she was unable to tolerate them. She states she was supposed to have surgery done and had an appointment to see cardiology for clearance outpatient. Besides the vomiting and back pain, the patient also endorses headaches, dysuria and some constipation. She denies fevers, chills, diarrhea, chest pain, shortness of breath. She denies any history of heart attacks, strokes, use of blood thinners. 12/02/24 Patient seen and examined at bedside. No acute events overnight or concerns from nursing. Patient denies any acute complaints at this time. Acute abdomen series was completed today. Patient scheduled for colonoscopy tomorrow with Dr. Woodall. Also tentatively scheduled for robotic lower anterior resection/colectomy on Saturday. Pertinent positives and negatives discussed above, a complete review of systems was preformed and all the other systems were negative. Vitals Signs Reviewed. General: non toxic, no distress, appears at stated age, normal weight Derm: no unusual rashes/lesions, warm Head: atraumatic, normocephalic, symmetric Eyes: EOMI, no lid lag, anicteric sclera, pupils equal round reactive to light ENT: Nose and ears atraumatic Neck: No cervical lymphadenopathy, trachea midline, supple Mouth: no lip lesion, mucus membranes moist Cardiovascular: Systolic murmur Lungs: Equal air entry bilaterally, no rhonchi, no rales, no accessory muscle use Abdominal: soft, nontender to palpation, no guarding Ext: muscle strength 5 out of 5 in all 4 extremities grossly, no gross muscle atrophy, no contractures, Neuro: CN II-XI grossly intact, no gross focal neuro deficits Psych: Alert, oriented, appropriate affect Labs: Sodium 140, potassium 3.2, chloride 106, bicarb 21.1, BUN 10.8, creatinine 0.6, glucose 147. Imaging: Acute abdomen series shows nonspecific but overall nonobstructive bowel gas pattern, consider generalized ileus or enteritis Assessment and Plan: Patient is a 89-year-old female with past medical history of hypertension and CVA who came to the ER with chief complaint of back pain, nausea, and vomiting. Active: Colovesical fistula History of complicated UTIs Continue Flagyl 500 mg every 8 hours Continue aztreonam 2 g every 8 hours General surgery consulted Cardiology has cleared for surgery Infectious disease consulted Continue IV fluids Arias catheter in place Hypokalemia Repleted Continue to monitor Chronic: Hypertension Continue Cozaar 50 mg daily Constipation Continue lactulose 30g 3 times daily GERD Continue Pepcid 20 mg p.o. at bedtime History of degenerative joint disease Continue [place] 53 25 every 6 hours as needed Continue Flexeril 5 mg p.o. at bedtime as needed F: 0.9% NS at 75 mL/h E: Replete as needed N: Clear liquids A: As tolerated DVT prophylaxis: Lovenox 40 mg subcu daily The patient is admitted with an anticipated more than 2 midnight stay for evaluation of colovesical fistula and complicated UTI CODE STATUS: Full code Discussed with: Patient Anticipated discharge place: Pending clinical course Attestation I have seen and examined this patient with my resident , discussed the same with the resident/MARLO, and agree with the dictator's assessment and plan as written GENERAL: The patient is alert, ill looking HEENT: Pupils are round and equally reacting to light. EOMI. No scleral icterus. No conjunctival pallor. Normocephalic, atraumatic. No pharyngeal erythema. No thyromegaly. CARDIOVASCULAR: S1 and S2 present. No murmurs, rubs, or gallops. PULMONARY: Chest is clear to auscultation, no wheezing or crackles. ABDOMEN: Soft, nontender, nondistended, normoactive bowel sounds. No palpable organomegaly. MUSCULOSKELETAL: No joint swelling or deformity. EXTREMITIES: No cyanosis, clubbing, or pedal edema. NEUROLOGICAL: Gross neurological examination did not reveal any focal deficits. SKIN: No rashes. Dr. Tan vazquez Objective - Vital Signs Vital signs: Vital Signs Temp 98.6 F 12/02/24 13:38 Pulse 101 H 12/02/24 13:38 Resp 17 12/02/24 13:38 BP 136/75 12/02/24 13:38 Pulse Ox 95 12/02/24 13:38 FiO2 Intake & Output 12/01/24 12/02/24 12/02/24 18:59 06:59 18:59 Intake Total 1200 Output Total 2200 Balance 1200 -2200 Weight 54.431 kg Intake: Intake, IV Titration 1200 Amount Aztreonam 2 gm In Sodium 200 Chloride 0.9% 100 ml @ 33 .3 mls/hr IVPB Q8HR [facility] Rx#:[id number] Sodium Chloride 0.9% 1, 900 000 ml @ 75 mls/hr IV . [id number] [facility] Rx#:[id number] metroNIDAZOLE-NS PMX 500 100 mg In Saline 1 100ml.bag @ 100 mls/hr IVPB Q8H [facility] Rx#:[id number] Output: Urine 2200 Uretheral (Arias) 800 Other: Voiding Method Indwelling Catheter Indwelling Catheter # Bowel Movements 3 - Labs CBC & Chem 7: 12/07/24 06:07 12/07/24 06:07 Labs: Abnormal Lab Results - Last 24 Hours (Table) 12/02/24 Range/Units 02:47 Potassium 3.2 L (3.5-5.5) mmol/L Carbon Dioxide 21.1 L (21.6-31.8) mmol/L Anion Gap 12.90 H (4.00-12.00) mmol/L Glucose 147 H (70-110) mg/dL Calcium 8.2 L (8.7-10.3) mg/dL Total Bilirubin <0.2 L (0.3-1.2) mg/dL AST 51 H (13-35) U/L Total Protein 5.8 L (6.2-8.2) g/dL Albumin 3.2 L (3.8-4.9) g/dL Albumin/Globulin Ratio 1.23 L (1.60-3.17) Ratio
[2024-12-03 08:56] LABS: ALT 23 U/L (8-44); AST 43 U/L (13-35); Albumin 3.1 g/dL (3.8-4.9); Albumin/Globulin Ratio 1.24 Ratio (1.60-3.17); Alkaline Phosphatase 65 U/L (41-126); Calcium 8.1 mg/dL (8.7-10.3); Carbon Dioxide 20.8 mmol/L (21.6-31.8); Chloride 110 mmol/L (96-109); Globulin 2.5 g/dL (1.6-3.3); Glucose 86 mg/dL (70-110); Potassium 3.5 mmol/L (3.5-5.5); Sodium 139 mmol/L (135-145); Total Bilirubin <0.2 mg/dL (0.3-1.2); Total Protein 5.6 g/dL (6.2-8.2)
[2024-12-03 09:13] LABS: HCT 35.8 % (37.2-46.3); HGB 12.1 g/dL (12.0-15.0); MCH 31.9 pg (27.0-32.0); MCHC 33.8 g/dL (32.0-37.0); MCV 94.5 FL (80.0-97.0); Mean Platelet Volume 10.2 FL (9.5-12.2); NRBC Per 100 WBC 0 X 10*3/uL (0.00-0.01); Platelet Count 201 X 10*3/uL (140-440); RBC 3.79 X 10*6/uL (4.10-5.20); RDW 13.5 % (11.5-14.5)
[2024-12-03 09:14] LABS: Basophils # (A) 0.04 X 10*3/uL (0.00-0.10); Basophils % (A) 1.3 %; Eosinophils # (A) 0 X 10*3/uL (0.04-0.35); Eosinophils % (A) 0 %; Lymphocytes % (A) 40.6 %; Monocytes # (A) 0.65 X 10*3/uL (0.20-1.00); Monocytes % (A) 20.3 %; Neutrophils % (A) 37.5 %
[2024-12-03] MEDS ORDERED: Antibiotics per Pharmacy 1 EACH MISC MISCELLANE PRN (10:39)
[2024-12-03] MEDS ORDERED: PROPOFOL 10 MG/ML 20 ML VIAL IV ONE (12:20)
[2024-12-03] MEDS: IV FLUID CONTINUATION 1,000 ML IV ONE (12:26)
--- NOTE | 2024-12-03 13:22 | P.PCN ---
Date of Procedure: 12/03/24 Description of Procedure: PREOPERATIVE DIAGNOSIS: Colovesical fistula Chronic urinary tract infection Diverticulosis Chronic constipation POSTOPERATIVE DIAGNOSIS: Tubular adenoma transverse colon Colovesical fistula Severe sigmoid diverticulosis OPERATION: Colonoscopy to the ileocecal valve and appendiceal orifice, cecum Colonoscopy with hot snare polypectomy SURGEON: Radha Woodall MD. ANESTHESIA: MAC. INDICATIONS: The patient is an 89-year-old female who presents with colovesical fistula. Patient had prior incomplete colonoscopy due to obstruction found of the sigmoid colon over a year ago. Lower endoscopy offered for diagnostic assessment. Benefits and risks were described and informed consent was obtained. DESCRIPTION OF PROCEDURE: The patient had undergone GoLytely and lactulose prep. The patient had been brought into the operating room and laid in the left lateral decubitus position. After adequate intravenous sedation, the rectum was examined with 2% lidocaine jelly. No external hemorrhoids were encountered. The rectal tone was within normal limits. No lesions were palpated in the rectal vault. An Olympus colonoscope was advanced until the cecum, ileocecal valve and appendiceal orifice were clearly viewed. The prep was good. Severe sigmoid diverticulosis with foci of diverticulitis at 30 cm from the anal verge was identified with air filling in her Arias bag consistent with colovesical fistula. Colonic polyps were found and removed. Retroflexion of the scope demonstrated grade 2 internal hemorrhoids without active bleeding or inflammation. The colon was desufflated. The patient had tolerated the procedure well. Withdrawal time was over 6 minutes. FINDINGS: Aronchick preparation quality scale 1+ (1-5) Internal hemorrhoids, grade 2 No external hemorrhoids, grade 4. No arteriovenous malformations. Highly redundant and severe sigmoid diverticulosis with foci of diverticulitis at 30 cm from the anal verge consistent with colovesical fistula. Removal of 1 polyps - Snare polypectomy transverse colon, 8 mm tubulovillous adenoma. RECOMMENDATIONS: 1. Patient has recurrent urinary tract infection including abdominal pain with colovesical fistula, will proceed with colectomy during this admission, while inpatient 2. Clear liquid diet 3. Start mechanical bowel prep with neomycin and metronidazole oral
[2024-12-03] MEDS: metroNIDAZOLE 500 MG TAB PO SCH (14:00)
[2024-12-03] MEDS: NEOMYCIN 500 MG TAB PO SCH (14:01)
[2024-12-03] MEDS: ONDANSETRON 4 MG/2 ML VIAL IVP SCH (14:01)
[2024-12-03] MEDS: SODIUM CHLORIDE 0.9% 1,000 ML IV ONE (14:02)
--- NOTE | 2024-12-03 14:44 | P.PN ---
Subjective Progress Note Date: 12/03/24 Hospital Course: Patient is a 89-year-old female with past medical history of hypertension and CVA who came to the ER with a chief complaint of back pain, nausea, and vomiting which began yesterday. 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 At the time she was prescribed 2 antibiotics, but states she was unable to tolerate them. She states she was supposed to have surgery done and had an appointment to see cardiology for clearance outpatient. Besides the vomiting and back pain, the patient also endorses headaches, dysuria and some constipation. She denies fevers, chills, diarrhea, chest pain, shortness of breath. She denies any history of heart attacks, strokes, use of blood thinners. 12/02/24 Patient seen and examined at bedside. No acute events overnight or concerns from nursing. Patient denies any acute complaints at this time. Acute abdomen series was completed today. Patient scheduled for colonoscopy tomorrow with Dr. Woodall. Also tentatively scheduled for robotic lower anterior resection/colectomy on Saturday. 12/03/2024 Patient seen and examined at bedside. No acute events overnight or concerns from nursing. Patient denies any acute complaints at this time. Patient is scheduled for colonoscopy with Dr. Woodall today as well as colectomy tomorrow. Pertinent positives and negatives discussed above, a complete review of systems was preformed and all the other systems were negative. Vitals Signs Reviewed. General: non toxic, no distress, appears at stated age, normal weight Derm: no unusual rashes/lesions, warm Head: atraumatic, normocephalic, symmetric Eyes: EOMI, no lid lag, anicteric sclera, pupils equal round reactive to light ENT: Nose and ears atraumatic Neck: No cervical lymphadenopathy, trachea midline, supple Mouth: no lip lesion, mucus membranes moist Cardiovascular: Systolic murmur Lungs: Equal air entry bilaterally, no rhonchi, no rales, no accessory muscle use Abdominal: soft, nontender to palpation, no guarding Ext: muscle strength 5 out of 5 in all 4 extremities grossly, no gross muscle atrophy, no contractures, Neuro: CN II-XI grossly intact, no gross focal neuro deficits Psych: Alert, oriented, appropriate affect Labs: WBCs 3.2, hemoglobin 12.1, platelets 201. Sodium 139, potassium 3.5, chloride 110, bicarb 20.8, BUN 12, creatinine 0.6, glucose 86. Imaging: Acute abdomen series shows nonspecific but overall nonobstructive bowel gas pattern, consider generalized ileus or enteritis. Assessment and Plan: Patient is a 89-year-old female with past medical history of hypertension and CVA who came to the ER with chief complaint of back pain, nausea, and vomiting. Active: Colovesical fistula History of complicated UTIs Continue Flagyl 500 mg every 8 hours Continue aztreonam 2 g every 8 hours General surgery consulted Cardiology has cleared for surgery Infectious disease consulted Continue IV fluids Raias catheter in place Colonoscopy today Possible colectomy tomorrow Hypokalemia, resolved Continue to monitor Chronic: Hypertension Continue Cozaar 50 mg daily Constipation Continue lactulose 30g 3 times daily GERD Continue Pepcid 20 mg p.o. at bedtime History of degenerative joint disease Continue [place] 53 25 every 6 hours as needed Continue Flexeril 5 mg p.o. at bedtime as needed F: 0.9% NS at 75 mL/h E: Replete as needed N: Clear liquids and then n.p.o. at midnight A: As tolerated DVT prophylaxis: Held for surgery tomorrow The patient is admitted with an anticipated more than 2 midnight stay for evaluation of colovesical fistula and complicated UTI CODE STATUS: Full code Discussed with: Patient Anticipated discharge place: Pending clinical course Objective - Vital Signs Vital signs: Vital Signs Temp 97.4 F L 12/03/24 13:10 Pulse 88 12/03/24 13:10 Resp 16 12/03/24 13:10 BP 116/57 12/03/24 13:10 Pulse Ox 96 12/03/24 13:10 FiO2 Intake & Output 12/02/24 12/03/24 12/03/24 18:59 06:59 18:59 Intake Total 100 Output Total 700 700 Balance -700 -600 Intake: IV 100 Output: Urine 700 700 Other: Voiding Method Indwelling Catheter Indwelling Catheter # Voids 1,450 # Bowel Movements 4 5 - Labs CBC & Chem 7: 12/03/24 02:50 12/03/24 02:50 Labs: Abnormal Lab Results - Last 24 Hours (Table) 12/03/24 12/03/24 Range/Units 02:50 02:50 WBC 3.20 L (4.50-10.00) X 10*3/uL RBC 3.79 L (4.10-5.20) X 10*6/uL Hct 35.8 L (37.2-46.3) % Neutrophils # 1.20 L (1.80-7.70) X 10*3/uL Eosinophils # 0 L (0.04-0.35) X 10*3/uL Chloride 110 H (96-109) mmol/L Carbon Dioxide 20.8 L (21.6-31.8) mmol/L Calcium 8.1 L (8.7-10.3) mg/dL Total Bilirubin <0.2 L (0.3-1.2) mg/dL AST 43 H (13-35) U/L Total Protein 5.6 L (6.2-8.2) g/dL Albumin 3.1 L (3.8-4.9) g/dL Albumin/Globulin Ratio 1.24 L (1.60-3.17) Ratio
--- NOTE | 2024-12-03 14:54 | P.PN ---
Subjective Progress Note Date: 12/03/24 Principal diagnosis: Reason for follow-up is colovesical fistula/UTI Patient is a 89-year-old female with a past medical history significant for CVA hypertension osteoarthritis history of recurrent UTIs in this patient has been recently diagnosed with a possible colovesical fistula, presenting back to the hospital with worsening abdominal pain did have a Arias catheter placement On today's evaluation that is 12/03/2024,the patient remains to be afebrile, patient is on room air not requiring supplemental oxygen and denies any shortness of breath no chest pain or cough.Patient denies having any nausea or vomiting, has been complaining of mostly lower back pain. The patient white count is 3.20 creatinine 0.6 Objective - Vital Signs Vital signs: Vital Signs Temp 97.4 F L 12/03/24 13:10 Pulse 88 12/03/24 13:10 Resp 16 12/03/24 13:10 BP 116/57 12/03/24 13:10 Pulse Ox 96 12/03/24 13:10 FiO2 Intake & Output 12/02/24 12/03/24 12/03/24 18:59 06:59 18:59 Intake Total 100 Output Total 700 700 Balance -700 -600 Intake: IV 100 Output: Urine 700 700 Other: Voiding Method Indwelling Catheter Indwelling Catheter # Voids 1,450 # Bowel Movements 4 5 - Exam GENERAL DESCRIPTION: An elderly female up in the room in no distress RESPIRATORY SYSTEM: Unlabored breathing , decreased breath sounds at bases HEART: S1 S2 regular rate and rhythm , ABDOMEN: Soft , no tenderness EXTREMITIES: No edema feet - Labs CBC & Chem 7: 12/03/24 02:50 12/03/24 02:50 Labs: Abnormal Lab Results - Last 24 Hours (Table) 12/03/24 12/03/24 Range/Units 02:50 02:50 WBC 3.20 L (4.50-10.00) X 10*3/uL RBC 3.79 L (4.10-5.20) X 10*6/uL Hct 35.8 L (37.2-46.3) % Neutrophils # 1.20 L (1.80-7.70) X 10*3/uL Eosinophils # 0 L (0.04-0.35) X 10*3/uL Chloride 110 H (96-109) mmol/L Carbon Dioxide 20.8 L (21.6-31.8) mmol/L Calcium 8.1 L (8.7-10.3) mg/dL Total Bilirubin <0.2 L (0.3-1.2) mg/dL AST 43 H (13-35) U/L Total Protein 5.6 L (6.2-8.2) g/dL Albumin 3.1 L (3.8-4.9) g/dL Albumin/Globulin Ratio 1.24 L (1.60-3.17) Ratio Assessment and Plan (1) Abnormal urinalysis Current Visit: No Status: Acute Code(s): R82.90 - UNSPECIFIED ABNORMAL F INDINGS IN URINE SNOMED Code(s): 317918535 (2) Allergy to multiple antibiotics Current Visit: No Status: Acute Code(s): Z88.1 - ALLERGY STATUS TO OTHER ANTIBIOTIC AGENTS SNOMED Code(s): 176023786 (3) Colovesical fistula Current Visit: No Status: Acute Code(s): N32.1 - VESICOINTESTINAL FISTULA SNOMED Code(s): 84066770 Plan: 1patient presented to hospital with worsening abdominal pain did have significant abnormality on the CT concerning for significant mount of gas in the bladder likely related to colovesical fistula with significantly positive UA 2-patient with multiple antibiotic ALLERGIES that would limit the number of antibiotic safe to use 3-patient urine has been finalized with the Proteus that is a sensitive pathogen however the patient did have multiple allergies 4-patient is treated with Azactam 2 g 8-hour and IV Flagyl plan is for surgical correction of this fistula during this admission care was discussed with the family bedside Dictation was produced using [employer] dictation software. please excuse any grammatical, word or spelling errors. Time with Patient: Less than 30
[2024-12-03] MEDS: PEG 3350 (420 GM/BTL) + LYTES 4,000 ML BOTTLE PO ONE (17:34)
[2024-12-04] MEDS ORDERED: metroNIDAZOLE-NS PMX 500 MG in SALINE 1 100ML.BAG IVPB PRN (05:00)
[2024-12-04 07:32] LABS: Basophils % (A) 0 %; Eosinophils % (A) 0 %; HCT 34.4 % (34.0-46.0); HGB 11.2 gm/dL (11.4-16.0); Lymphocytes # (A) 0.9 k/uL (1.0-4.8); Lymphocytes % (A) 26 %; MCH 32.1 pg (25.0-35.0); MCHC 32.7 g/dL (31.0-37.0); MCV 98.4 fL (80.0-100.0); Mean Platelet Volume 7.9; Monocytes # (A) 0.3 k/uL (0-1.0); Monocytes % (A) 9 %; Neutrophils # (A) 2.2 k/uL (1.3-7.7); Neutrophils % (A) 61 %; Platelet Count 191 k/uL (150-450); RDW 13.3 % (11.5-15.5); WBC 3.6 k/uL (3.8-10.6)
[2024-12-04] MEDS: LACTATED RINGERS 1,000 ML IV SCH (08:04)
[2024-12-04 08:15] LABS: ALT 25 U/L (4-34); AST 48 U/L (14-36); African American GFR (CKD) >90 (>60 ml/min/1.73 sqM); Albumin 2.6 g/dL (3.5-5.0); Alkaline Phosphatase 57 U/L (38-126); Anion Gap 7 mmol/L; Blood Urea Nitrogen 13 mg/dL (7-17); Carbon Dioxide 18 mmol/L (22-30); Chloride 112 mmol/L (98-107); Globulin 2.7 g/dL; Glucose 80 mg/dL (74-99); Magnesium 1.7 mg/dL (1.6-2.3); Non-African American GFR(CKD) 82 (>60 ml/min/1.73 sqM); Potassium 3.2 mmol/L (3.5-5.1); Sodium 137 mmol/L (137-145); Total Bilirubin 0.3 mg/dL (0.2-1.3); Total Protein 5.3 g/dL (6.3-8.2)
[2024-12-04] MEDS: POTASSIUM CHLORIDE ER 20 MEQ TAB.ER PO STA (09:05)
[2024-12-04] MEDS: MAGNESIUM SULFATE-D5W PMX 1 GM in DEXTROSE/WATER 1 100ML.BAG IVPB ONE (09:44)
[2024-12-04 10:50] LABS: Glucose,Whole Blood 108 mg/dL (70-110)
[2024-12-04] MEDS: fentaNYL (PF) 50 MCG/ML 2 ML AMP IVP STA (10:57)
[2024-12-04] MEDS: MIDAZOLAM 2 MG/2 ML VIAL IV ONE (10:58)
[2024-12-04] MEDS: DEXAMETHASONE SOD PHOSPHATE 4 MG/ML 1 ML VIAL IVP STA (11:16)
[2024-12-04] MEDS: HEPARIN SODIUM,PORCINE 5,000 UNIT/ML 1 ML VIAL SQ PRN (11:19)
[2024-12-04] MEDS: ALVIMOPAN 12 MG CAPSULE PO PRN (11:34)
[2024-12-04] MEDS: IV FLUID CONTINUATION 1,000 ML IV ONE (11:36)
[2024-12-04] MEDS ORDERED: ROCURONIUM 10 MG/ML (5 ML VIAL) IV ONE (11:43)
[2024-12-04] MEDS ORDERED: SODIUM CHLORIDE 0.9% (PF) 10 ML VIAL ONE (11:43)
[2024-12-04] MEDS ORDERED: LIDOCAINE 1% INJ 10MG/ML (20 ML MDV) ONE (11:43)
[2024-12-04] MEDS ORDERED: DEXAMETHASONE SOD PHOSPHATE 4 MG/ML 1 ML VIAL ONE (11:43)
[2024-12-04] MEDS ORDERED: GLYCOPYRROLATE 0.2 MG/ML 2 ML VIAL ONE (11:43)
[2024-12-04] MEDS ORDERED: PROPOFOL 10 MG/ML 20 ML VIAL IV ONE (11:43)
[2024-12-04] MEDS ORDERED: ROPIVACAINE 5 MG/ML 30 ML VIAL ONE (11:43)
[2024-12-04] MEDS ORDERED: ONDANSETRON 4 MG/2 ML VIAL ONE (11:43)
[2024-12-04] MEDS ORDERED: SUCCINYLCHOLINE CHLORIDE 200 MG/10 ML VIAL IV ONE (11:43)
[2024-12-04] MEDS ORDERED: NEOSTIGMINE 1 MG/ML 10 ML VIAL ONE (11:43)
[2024-12-04] MEDS ORDERED: PHENYLEPHRINE 10 MG/ML VIAL ONE (11:43)
[2024-12-04] MEDS ORDERED: fentaNYL (PF) 50 MCG/ML 2 ML AMP ONE (11:43)
[2024-12-04] MEDS: LIDOCAINE 1%-EPI 1:100,000 20 ML VIAL SQ ONE (12:15)
[2024-12-04] MEDS: LACTATED RINGERS 1,000 ML IV ONE ×2 (12:56→15:25)
--- NOTE | 2024-12-04 13:30 | P.ANPRN ---
Procedure Note - Anesthesia - Nerve Block Performed Bilateral Erector Spinae Single Time Out Performed: Yes ([id number]) Date of Procedure: 12/04/24 Procedure Start Time: 10:58 Procedure Stop Time: 11:04 Location of Patient: PreOp Indication: Acute Post-Operative Pain, Requested by Surgeon Specifically requested for management of pain by : Radha Woodall Sedation Type: Sedate with meaningful contact maintained Preparation: Sterile Prep Position: Sitting Catheter: None Needle Types: Pajunk Needle Gauge: 21 (X2) Ultrasound used to visualize needle placement: Yes Ultrasound used to observe medication spread: Yes Injectate: 0.5% Ropivacaine (see comment for volume) (15CC+10CC NACL PF + DECADRON 4MG EACH SIDE) Blood Aspirated: No Pain Paresthesia on Injection Noted: No Resistance on Injection: Normal Image Stored and Saved: Yes Events: Uneventful and Well Tolerated
--- NOTE | 2024-12-04 14:53 | P.PN ---
Subjective Progress Note Date: 12/04/24 Hospital Course: Patient is a 89-year-old female with past medical history of hypertension and CVA who came to the ER with a chief complaint of back pain, nausea, and vomiting which began yesterday. 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 At the time she was prescribed 2 antibiotics, but states she was unable to tolerate them. She states she was supposed to have surgery done and had an appointment to see cardiology for clearance outpatient. Besides the vomiting and back pain, the patient also endorses headaches, dysuria and some constipation. She denies fevers, chills, diarrhea, chest pain, shortness of breath. She denies any history of heart attacks, strokes, use of blood thinners. 12/02/24 Patient seen and examined at bedside. No acute events overnight or concerns from nursing. Patient denies any acute complaints at this time. Acute abdomen series was completed today. Patient scheduled for colonoscopy tomorrow with Dr. Woodall. Also tentatively scheduled for robotic lower anterior resection/colectomy on Saturday. 12/03/2024 Patient seen and examined at bedside. No acute events overnight or concerns from nursing. Patient denies any acute complaints at this time. Patient is scheduled for colonoscopy with Dr. Woodall today as well as colectomy tomorrow. 12/04/13 Patient was seen briefly before going to the OR. No acute events overnight or concerns from nursing. Patient denied any complaints at that time. Pertinent positives and negatives discussed above, a complete review of systems was preformed and all the other systems were negative. Vitals Signs Reviewed. General: non toxic, no distress, appears at stated age, normal weight Derm: no unusual rashes/lesions, warm Head: atraumatic, normocephalic, symmetric Eyes: EOMI, no lid lag, anicteric sclera, pupils equal round reactive to light ENT: Nose and ears atraumatic Neck: No cervical lymphadenopathy, trachea midline, supple Mouth: no lip lesion, mucus membranes moist Cardiovascular: Systolic murmur Lungs: Equal air entry bilaterally, no rhonchi, no rales, no accessory muscle use Abdominal: soft, nontender to palpation, no guarding Ext: muscle strength 5 out of 5 in all 4 extremities grossly, no gross muscle atrophy, no contractures, Neuro: CN II-XI grossly intact, no gross focal neuro deficits Psych: Alert, oriented, appropriate affect Labs: WBCs 3.6, hemoglobin 11.2, platelets 191. Sodium 137, potassium 3.2, chloride 112, bicarb 18, BUN 13, creatinine 0.62, glucose 80. Imaging: Acute abdomen series shows nonspecific but overall nonobstructive bowel gas pattern, consider generalized ileus or enteritis. Assessment and Plan: Patient is a 89-year-old female with past medical history of hypertension and CVA who came to the ER with chief complaint of back pain, nausea, and vomiting. Active: Colovesical fistula History of complicated UTIs Continue Flagyl 500 mg every 8 hours Continue aztreonam 2 g every 8 hours General surgery consulted Cardiology has cleared for surgery Infectious disease consulted Continue IV fluids Arias catheter in place Colonoscopy done yesterday Colectomy today Hypokalemia Repleted Continue to monitor Chronic: Hypertension Continue Cozaar 50 mg daily Constipation Continue lactulose 30g 3 times daily GERD Continue Pepcid 20 mg p.o. at bedtime History of degenerative joint disease Continue [place] 53 25 every 6 hours as needed Continue Flexeril 5 mg p.o. at bedtime as needed F: 0.9% NS at 75 mL/h E: Replete as needed N: N.p.o. A: As tolerated DVT prophylaxis: Held for surgery The patient is admitted with an anticipated more than 2 midnight stay for evaluation of colovesical fistula and complicated UTI CODE STATUS: Full code Discussed with: Patient Anticipated discharge place: Pending clinical course Objective - Vital Signs Vital signs: Vital Signs Temp 97.8 F 12/04/24 00:40 Pulse 80 12/04/24 00:40 Resp 19 12/04/24 00:40 BP 152/69 12/04/24 00:40 Pulse Ox 94 L 12/04/24 00:40 FiO2 Intake & Output 12/03/24 12/04/24 12/04/24 18:59 06:59 18:59 Intake Total 100 Output Total 950 600 Balance -850 -600 Intake: IV 100 Output: Urine 950 600 Other: Voiding Method Indwelling Catheter Indwelling Catheter Indwelling Catheter # Bowel Movements 4 - Labs CBC & Chem 7: 12/04/24 07:09 12/04/24 07:09 Labs: Abnormal Lab Results - Last 24 Hours (Table) 0212/03/24 12/04/24 Range/Units 02:50 02:50 07:09 WBC 3.20 L 3.6 L (4.50-10.00) X 10*3/uL RBC 3.79 L 3.50 L (4.10-5.20) X 10*6/uL Hgb 11.2 L (11.4-16.0) gm/dL Hct 35.8 L (37.2-46.3) % Neutrophils # 1.20 L (1.80-7.70) X 10*3/uL Lymphocytes # 0.9 L (1.0-4.8) k/uL Eosinophils # 0 L (0.04-0.35) X 10*3/uL Potassium (3.5-5.1) mmol/L Chloride 110 H (96-109) mmol/L Carbon Dioxide 20.8 L (21.6-31.8) mmol/L Calcium 8.1 L (8.7-10.3) mg/dL Total Bilirubin <0.2 L (0.3-1.2) mg/dL AST 43 H (13-35) U/L Total Protein 5.6 L (6.2-8.2) g/dL Albumin 3.1 L (3.8-4.9) g/dL Albumin/Globulin Ratio 1.24 L (1.60-3.17) Ratio 12/04/24 Range/Units 07:09 WBC (4.50-10.00) X 10*3/uL RBC (4.10-5.20) X 10*6/uL Hgb (11.4-16.0) gm/dL Hct (37.2-46.3) % Neutrophils # (1.80-7.70) X 10*3/uL Lymphocytes # (1.0-4.8) k/uL Eosinophils # (0.04-0.35) X 10*3/uL Potassium 3.2 L (3.5-5.1) mmol/L Chloride 112 H (96-109) mmol/L Carbon Dioxide 18 L (21.6-31.8) mmol/L Calcium 8.0 L (8.7-10.3) mg/dL Total Bilirubin (0.3-1.2) mg/dL AST 48 H (13-35) U/L Total Protein 5.3 L (6.2-8.2) g/dL Albumin 2.6 L (3.8-4.9) g/dL Albumin/Globulin Ratio (1.60-3.17) Ratio
[2024-12-04] MEDS ORDERED: BENZOCAINE/MENTHOL LOZENG 1 EACH LOZENGE MUCOUS MEM PRN (17:50)
[2024-12-04] MEDS ORDERED: METOCLOPRAMIDE 5 MG/ML 2 ML VIAL IVP PRN (17:50)
--- NOTE | 2024-12-04 17:59 | P.OP ---
Date of Procedure: 12/04/24 Description of Procedure: SURGEON: TEJAL GARCIA MD PREOPERATIVE DIAGNOSES: 1. 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 Recurrent urinary tract infection 3. Large bowel obstruction due to sigmoid diverticulitis 4. Hypertensive heart disease 5. Gastroesophageal reflux disease 6. History of cerebrovascular accident 7. Postop nausea and vomiting POSTOPERATIVE DIAGNOSES: 1. 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 Recurrent urinary tract infection 3. Large bowel obstruction due to sigmoid diverticulitis 4. Left pelvic adhesions 5. Gastroesophageal reflux disease 6. History of cerebrovascular accident 7. Postop nausea and vomiting 8. Hypertensive heart disease 9. Pelvic phlegmon 10. Pelvic adhesions OPERATION: 1. Robotic-assisted daVinci Xi laparoscopic extensive lysis of adhesions over 3 hours for takedown of left pelvic phlegmon with takedown of colovesical fistula 2. Robotic-assisted daVinci Xi laparoscopic with sigmoid colectomy and low anterior resection using 29 mm Ethicon powered EEA 3. Intraoperative colonoscopy for flexible sigmoidoscopy Anesthesia: GETA, local, abdominal wall block Estimated Blood Loss (ml): 200 Pathology: other (Sigmoid colon with colovesical fistula, colotomy, donuts) Condition: stable Disposition: floor COMPLICATIONS: None. Operative Findings: 1. Severe pelvic adhesions due to previously contained perforated sigmoid diverticulitis 2. Near complete large bowel obstruction sigmoid colon lumen 3. Anastomosis performed using Ethicon powered 29 mm EEA 4. Colovesical fistula along the fundus/posterior dome of bladder resected with stapler and leak tested with 300 cc methylene blue and normal saline 5. Presence of adenoma proximal to anastomosis requiring resection in 6-months INDICATIONS: The patient is a 89-year-old female who presents with chronic urinary tract infection, colovesical fistula due to diverticulitis and partial bowel obstruction. Surgical intervention was described. Benefits and risks, including infection, bowel injury, ureteral injury, colostomy creation and possibility for additional surgery was discussed at length. Informed consent was obtained. All questions of the patient and family were answered. DESCRIPTION: Earlier the patient had undergone a bowel prep using the enhanced colon recovery program. The patient was transferred to the operating room onto a split leg table and repositioned to modified lithotomy following intubation. A Arias catheter was already placed on the floor. The abdomen was then prepped and draped in standard sterile fashion as Ioban was placed along the abdomen to minimize any contamination of skin floor. After a timeout protocol was performed, attention was then brought to the left upper quadrant whereby a 0 degree 5 mm laparoscopic trocar entry was performed. The abdominal cavity was entered and insufflated to 15 mmHg pressure, which was tolerated well. Diagnostic laparoscopy confirmed severe phlegmon incorporating the left pelvis and left pelvis. Next trocars were placed 20 cm superior from the pelvis. A 12-mm trocar was placed along the right lateral abdominal wall. A 8 mm port was placed along the right upper quadrant. Ports were placed 10 cm apart from each other including 15-20 cm away from the target anatomy of the left pelvis. The 5-mm port was exchanged for an 8 mm robotic port. The stapler 12-mm port was arranged along the left lateral abdominal wall. The patient was then placed in Trendelenburg p osition, at least 21. The robotic da Scotty XI system was primed. The robot was docked from the right side of the patient. Using atraumatic graspers and vessel sealer, the robotic system was docked and primed as described. Instruments were interchanged by the mailing machine assistant including needle special education bus driver, clip managing member, hook cautery, robotic stapler and vessel sealer. The robot stapler was prepared along the right lateral abdominal wall. Next, attention was brought to identify the sigmoid colon. To address the left pelvic phlegmon, combination of blunt including sharp dissection was performed using a hook cautery and vessel sealer. Extensive and careful dissection was performed without injury to the posterior wall of the bladder as a phlegmon was found along the left pelvis. Dense adhesion was calcified with entry into the fused bowel to the left pelvis. No abscess was identified. Extensive lysis of adhesions occurred well over 3 hours was performed to avoid injury to the ureter, bladder as described. After the fistula was dissected, the colovesical fistula was divided using 60 mm black staple load. 300 cc of normal saline and methylene blue was inserted into the bladder by the mailing machine assistant demonstrating no leak within the bladder repair. The sigmoid mesentery was mobilized using a vessel sealer. Using multiple fires of the robot stapler 60 mm black and green loads, the descending colon was divided. Mobilization of the colon was performed to the pelvic brim along the sacral promontory. The mesentery of the sigmoid colon was mobilized towards the descending colon using a vessel sealer. Next, the top of the rectum was divided using robotic stapler 60 mm black and green loads. The rest of the sigmoid colon mesentery was mobilized using vessel sealer. The sigmoid colon and mesentery was moderately bulky from recurrent inflammation and infection causing malformation and near complete obstruction. Additionally, the sigmoid colon was mobilized onto the colon to minimize injury to the ureters. I went to the foot of the bed for selection of a sizer. Ethicon powered 29 mm stapler was selected after using a sizer along the rectum. For the proximal sigmoid colon, a 29-mm anvil was placed after creating a colotomy then closed using a stapler at the distal end. The robot arms were temporarily undocked. A stapler was entered along the rectum and mated to the anvil for 1 minute. The anastomosis was created. The donuts were thick on both sides. I then performed a bedside flexible sigmoidoscopy using colonoscope where no leaks or defects were confirmed as the mailing machine assistant placed normal saline along the pelvis. Additionally, 6 mm adenoma was found proximal to the anastomosis which were prior resection 6 months following procedure. I re-scrubbed into the case. Irrigation fluid was suctioned from the abdomen. The robot was undocked. All needles were removed from the abdominal cavity. Via the stapler site 12-mm left upper quadrant, the resected colon was brought out through the 12 mm trocar of the left upper quadrant after widening the skin incision to 4-cm. The fascial defect was oversewn using 0 Vicryl and a Rashid Grey. All incisions were copiously irrigated using dilute normal saline and hydrogen peroxide mixture. Next all pneumoperitoneum was evacuated from the abdominal cavity. The 8-mm trocar sites were reapproximated using 4-0 Monocryl in an interrupted subcuticular fashion. Local anesthetic was infiltrated to all wounds for postop analgesia. All incisions were also cleansed with diluted hydrogen peroxide. An Optifoam surgical dressing was placed over the colon extraction site. Liquid glue was applied to the rest of the skin incisions. The patient was extubated successfully. The patient was transferred to the postanesthesia care unit in stable condition. COMPLEXITY STATEMENT: Extensive lysis of adhesions performed over 3+ hrs for large and complicated phlegmon involving the bladder and colon with careful dissection performed using hook cautery and vessel sealer including blunt dissection.
[2024-12-04] MEDS ORDERED: SODIUM CHLORIDE 0.9% 1,000 ML with POTASSIUM CHLORIDE 20 MEQ IV SCH (18:00)
[2024-12-04] MEDS: 0.9% NACL WITH KCL 20 MEQ/L 1,000 ML IV SCH (19:07)
[2024-12-04] MEDS: KETOROLAC 15 MG/ML 1 ML VIAL IVP SCH (19:52)
[2024-12-04] MEDS: ALVIMOPAN 12 MG CAPSULE PO SCH (20:39)
[2024-12-04] MEDS: HEPARIN SODIUM,PORCINE 5,000 UNIT/ML 1 ML VIAL SQ SCH (20:39)
[2024-12-05 03:50] LABS: Basophils % (A) 0 %; Eosinophils % (A) 0 %; HCT 36.1 % (34.0-46.0); HGB 11.5 gm/dL (11.4-16.0); Lymphocytes # (A) 0.6 k/uL (1.0-4.8); Lymphocytes % (A) 8 %; MCH 31.3 pg (25.0-35.0); MCV 97.7 fL (80.0-100.0); Mean Platelet Volume 7.4; Monocytes # (A) 0.4 k/uL (0-1.0); Monocytes % (A) 5 %; Neutrophils % (A) 86 %; Platelet Count 200 k/uL (150-450); RBC 3.69 m/uL (3.80-5.40); RDW 13.3 % (11.5-15.5)
[2024-12-05 04:26] LABS: African American GFR (CKD) >90 (>60 ml/min/1.73 sqM); Anion Gap 8 mmol/L; Blood Urea Nitrogen 13 mg/dL (7-17); Carbon Dioxide 19 mmol/L (22-30); Chloride 107 mmol/L (98-107); Glucose 155 mg/dL (74-99); Non-African American GFR(CKD) 82 (>60 ml/min/1.73 sqM); Potassium 3.9 mmol/L (3.5-5.1); Sodium 134 mmol/L (137-145)
[2024-12-05] MEDS: POTASSIUM CHLORIDE ER 20 MEQ TAB.ER PO SCH (09:45)
--- NOTE | 2024-12-05 10:47 | P.PN ---
Subjective Progress Note Date: 12/05/24 Patient is postop day 1 from laparoscopic sigmoid colectomy. Patient is doing fairly well. She has been complaints of pain. She is tolerating diet. Abdomen soft. There are some minimal incisional pain. Objective - Vital Signs Vital signs: Vital Signs Temp 97.6 F 12/05/24 07:34 Pulse 97 12/05/24 07:34 Resp 17 12/05/24 07:34 BP 137/72 12/05/24 07:34 Pulse Ox 91 L 12/05/24 07:34 FiO2 Intake & Output 12/04/24 12/05/24 12/05/24 18:59 06:59 18:59 Intake Total 2750 Output Total 1025 1220 Balance 1725 -1220 Weight 54.431 kg Intake: IV 2750 Output: Urine 825 1220 Estimated Blood Loss 200 Other: Voiding Method Indwelling Catheter Indwelling Catheter - Labs CBC & Chem 7: 12/05/24 03:27 12/05/24 03:27 Labs: Abnormal Lab Results - Last 24 Hours (Table) 12/05/24 12/05/24 Range/Units 03:27 03:27 RBC 3.69 L (3.80-5.40) m/uL Lymphocytes # 0.6 L (1.0-4.8) k/uL Sodium 134 L (137-145) mmol/L Carbon Dioxide 19 L (22-30) mmol/L Glucose 155 H (74-99) mg/dL Calcium 8.0 L (8.4-10.2) mg/dL Assessment and Plan Plan: Patient will l have the Arias remain in. She had a colovesical fistula. Patient continue receive supportive care.
--- NOTE | 2024-12-05 13:47 | P.PN ---
Subjective Progress Note Date: 12/05/24 Principal diagnosis: Reason for follow-up is colovesical fistula/UTI Patient is a 89-year-old female with a past medical history significant for CVA hypertension osteoarthritis history of recurrent UTIs in this patient has been recently diagnosed with a possible colovesical fistula, presenting back to the hospital with worsening abdominal pain did have a Arias catheter placement Patient is status post extensive lysis of adhesions , takedown of left pelvic phlegmon with takedown of colovesical fistula, procedure completed on 12/04/2024. On today's evaluation that is 12/05/2024, patient did not have any fever and denies any chills, patient is breathing comfortably on room air, patient with no chest pain or cough patient abdominal pain is currently controlled no nausea vomiting. Patient white count 7.0 creatinine 0.62 Objective - Vital Signs Vital signs: Vital Signs Temp 97.6 F 12/05/24 07:34 Pulse 97 12/05/24 07:34 Resp 17 12/05/24 07:34 BP 137/72 12/05/24 07:34 Pulse Ox 91 L 12/05/24 07:34 FiO2 Intake & Output 12/04/24 12/05/24 12/05/24 18:59 06:59 18:59 Intake Total 2750 Output Total 1025 1220 Balance 1725 -1220 Weight 54.431 kg Intake: IV 2750 Output: Urine 825 1220 Estimated Blood Loss 200 Other: Voiding Method Indwelling Catheter Indwelling Catheter - Exam GENERAL DESCRIPTION: An elderly female up in the room in no distress RESPIRATORY SYSTEM: Unlabored breathing , decreased breath sounds at bases HEART: S1 S2 regular rate and rhythm , ABDOMEN: Soft , no tenderness EXTREMITIES: No edema feet - Labs CBC & Chem 7: 12/05/24 03:27 12/05/24 03:27 Labs: Abnormal Lab Results - Last 24 Hours (Table) 12/05/24 12/05/24 Range/Units 03:27 03:27 RBC 3.69 L (3.80-5.40) m/uL Lymphocytes # 0.6 L (1.0-4.8) k/uL Sodium 134 L (137-145) mmol/L Carbon Dioxide 19 L (22-30) mmol/L Glucose 155 H (74-99) mg/dL Calcium 8.0 L (8.4-10.2) mg/dL Assessment and Plan (1) Abnormal urinalysis Current Visit: No Status: Acute Code(s): R82.90 - UNSPECIFIED ABNORMAL FINDINGS IN URINE SNOMED Code(s): 910512113 (2) Allergy to multiple antibiotics Current Visit: No Status: Acute Code(s): Z88.1 - ALLERGY STATUS TO OTHER ANTIBIOTIC AGENTS SNOMED Code(s): 491723539 (3) Colovesical fistula Current Visit: No Status: Acute Code(s): N32.1 - VESICOINTESTINAL FISTULA SNOMED Code(s): 14401908 Plan: 1patient presented to hospital with worsening abdominal pain did have significant abnormality on the CT concerning for significant mount of gas in the bladder likely related to colovesical fistula with significantly positive UA 2-patient with multiple antibiotic ALLERGIES that would limit the number of antibiotic safe to use 3-patient urine has been finalized with the Proteus that is a sensitive pathogen however the patient did have multiple allergies 4patient is status post extensive abdominal surgical isolation and takedown of the fistula mentioned drainage of the abscess no cultures for now continue with Azactam and Flagyl Dictation was produced using [employer] dictation software. please excuse any grammatical, word or spelling errors. Time with Patient: Less than 30
--- NOTE | 2024-12-05 14:48 | P.PN ---
Subjective Progress Note Date: 12/05/24 Hospital Course: Patient is a 89-year-old female with past medical history of hypertension and CVA who came to the ER with a chief complaint of back pain, nausea, and vomiting which began yesterday. 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 At the time she was prescribed 2 antibiotics, but states she was unable to tolerate them. She states she was supposed to have surgery done and had an appointment to see cardiology for clearance outpatient. Besides the vomiting and back pain, the patient also endorses headaches, dysuria and some constipation. She denies fevers, chills, diarrhea, chest pain, shortness of breath. She denies any history of heart attacks, strokes, use of blood thinners. 12/02/24 Patient seen and examined at bedside. No acute events overnight or concerns from nursing. Patient denies any acute complaints at this time. Acute abdomen series was completed today. Patient scheduled for colonoscopy tomorrow with Dr. Woodall. Also tentatively scheduled for robotic lower anterior resection/colectomy on Saturday. 12/03/2024 Patient seen and examined at bedside. No acute events overnight or concerns from nursing. Patient denies any acute complaints at this time. Patient is scheduled for colonoscopy with Dr. Woodall today as well as colectomy tomorrow. 12/04/24 Patient was seen briefly before going to the OR. No acute events overnight or concerns from nursing. Patient denied any complaints at that time. 12/05/24 Patient seen and examined at bedside. No acute events overnight or concerns from nursing. Patient denies any acute complaints at this time. Patient had sigmoid colectomy yesterday. Pertinent positives and negatives discussed above, a complete review of systems was preformed and all the other systems were negative. Vitals Signs Reviewed. General: non toxic, no distress, appears at stated age, normal weight Derm: no unusual rashes/lesions, warm Head: atraumatic, normocephalic, symmetric Eyes: EOMI, no lid lag, anicteric sclera, pupils equal round reactive to light ENT: Nose and ears atraumatic Neck: No cervical lymphadenopathy, trachea midline, supple Mouth: no lip lesion, mucus membranes moist Cardiovascular: Systolic murmur Lungs: Equal air entry bilaterally, no rhonchi, no rales, no accessory muscle use Abdominal: soft, some tenderness around incision Ext: muscle strength 5 out of 5 in all 4 extremities grossly, no gross muscle atrophy, no contractures, Neuro: CN II-XI grossly intact, no gross focal neuro deficits Psych: Alert, oriented, appropriate affect Labs: WBCs 7, hemoglobin 11.5, platelets 200. Sodium 135, potassium 3.9, chloride 107, bicarb 19, BUN 13, creatinine 0.62, glucose 155. Imaging: No new imaging Assessment and Plan: Patient is a 89-year-old female with past medical history of hypertension and CVA who came to the ER with chief complaint of back pain, nausea, and vomiting. Active: Colovesical fistula status post sigmoid colectomy POD #1 History of complicated UTIs Continue Flagyl 500 mg every 8 hours Continue aztreonam 2 g every 8 hours General surgery consulted Infectious disease consulted Continue IV fluids Arias catheter in place Colonoscopy completed Pain and DVT prophylaxis per primary team Hypokalemia, resolved Continue K-Dur 20 mill equivalents daily Continue to monitor Chronic: Hypertension Continue Cozaar 50 mg daily Constipation Continue lactulose 30g 3 times daily GERD Continue Pepcid 20 mg p.o. at bedtime History of degenerative joint disease Continue [place] 53 25 every 6 hours as needed Continue Flexeril 5 mg p.o. at bedtime as needed F: 0.9% NS at 75 mL/h E: Replete as needed N: N.p.o. A: As tolerated DVT prophylaxis: Per primary team The patient is admitted with an anticipated more than 2 midnight stay for evaluation of colovesical fistula and complicated UTI CODE STATUS: Full code Discussed with: Patient Anticipated discharge place: Pending clinical course Objective - Vital Signs Vital signs: Vital Signs Temp 98 F 12/05/24 01:51 Pulse 86 12/05/24 01:51 Resp 16 12/05/24 01:51 BP 162/83 12/05/24 01:51 Pulse Ox 93 L 12/05/24 01:51 FiO2 Intake & Output 12/04/24 12/05/24 12/05/24 18:59 06:59 18:59 Intake Total 2750 Output Total 1025 1220 Balance 1725 -1220 Weight 54.431 kg Intake: IV 2750 Output: Urine 825 1220 Estimated Blood Loss 200 Other: Voiding Method Indwelling Catheter Indwelling Catheter - Labs CBC & Chem 7: 12/05/24 03:27 12/05/24 03:27 Labs: Abnormal Lab Results - Last 24 Hours (Table) 12/05/24 12/05/24 Range/Units 03:27 03:27 RBC 3.69 L (3.80-5.40) m/uL Lymphocytes # 0.6 L (1.0-4.8) k/uL Sodium 134 L (137-145) mmol/L Carbon Dioxide 19 L (22-30) mmol/L Glucose 155 H (74-99) mg/dL Calcium 8.0 L (8.4-10.2) mg/dL
[2024-12-05] MEDS: HYDROmorphone 1 MG/ML 1 ML SYRINGE IVP PRN (18:26)
[2024-12-05] MEDS: metroNIDAZOLE-NS PMX 500 MG in SALINE 1 100ML.BAG IVPB SCH (21:01)
--- NOTE | 2024-12-06 10:30 | P.PN ---
Subjective Hospital Course: Patient is a 89-year-old female with past medical history of hypertension and CVA who came to the ER with a chief complaint of back pain, nausea, and vomiting which began yesterday. 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 At the time she was prescribed 2 antibiotics, but states she was unable to tolerate them. She states she was supposed to have surgery done and had an appointment to see cardiology for clearance outpatient. Besides the vomiting and back pain, the patient also endorses headaches, dysuria and some constipation. She denies fevers, chills, diarrhea, chest pain, shortness of breath. She denies any history of heart attacks, strokes, use of blood thinners. 12/02/24 Patient seen and examined at bedside. No acute events overnight or concerns from nursing. Patient denies any acute complaints at this time. Acute abdomen series was completed today. Patient scheduled for colonoscopy tomorrow with Dr. Woodall. Also tentatively scheduled for robotic lower anterior resection/colectomy on Saturday. 12/03/2024 Patient seen and examined at bedside. No acute events overnight or concerns from nursing. Patient denies any acute complaints at this time. Patient is scheduled for colonoscopy with Dr. Woodall today as well as colectomy tomorrow. 12/04/24 Patient was seen briefly before going to the OR. No acute events overnight or concerns from nursing. Patient denied any complaints at that time. 12/05/24 Patient seen and examined at bedside. No acute events overnight or concerns from nursing. Patient denies any acute complaints at this time. Patient had sigmoid colectomy yesterday. Pertinent positives and negatives discussed above, a complete review of systems was preformed and all the other systems were negative. 12/06 Patient up in her chair, looks relaxed and pleasant Surgical wound is clean and healing with dressing in place She is still have significant surgical wound pain about 10/10 which is controlled with IV Toradol, Scheduled per surgery team and Dilaudid as needed Continued on Zithromax and Flagyl per surgery team. She is on normal saline 75 mL/h Last night she had bloody bowel movement, currently is back to brown color. She has multiple liquid bowel movements. Will check labs tomorrow for hemoglobin and lites and creatinine Vitals Signs Reviewed. General: non toxic, no distress, appears at stated age, normal weight Derm: no unusual rashes/lesions, warm Head: atraumatic, normocephalic, symmetric Eyes: EOMI, no lid lag, anicteric sclera, pupils equal round reactive to light ENT: Nose and ears atraumatic Neck: No cervical lymphadenopathy, trachea midline, supple Mouth: no lip lesion, mucus membranes moist Cardiovascular: Systolic murmur Lungs: Equal air entry bilaterally, no rhonchi, no rales, no accessory muscle use Abdominal: soft, some tenderness around incision Ext: muscle strength 5 out of 5 in all 4 extremities grossly, no gross muscle atrophy, no contractures, Neuro: CN II-XI grossly intact, no gross focal neuro deficits Psych: Alert, oriented, appropriate affect Labs: WBCs 7, hemoglobin 11.5, platelets 200. Sodium 135, potassium 3.9, chloride 107, bicarb 19, BUN 13, creatinine 0.62, glucose 155. Imaging: No new imaging Assessment and Plan: Patient is a 89-year-old female with past medical history of hypertension and CVA who came to the ER with chief complaint of back pain, nausea, and vomiting. Active: Colovesical fistula status post sigmoid colectomy POD #1 History of complicated UTIs Continue Flagyl 500 mg every 8 hours Continue aztreonam 2 g every 8 hours General surgery consulted Infectious disease consulted Continue IV fluids Arias catheter in place Colonoscopy completed Pain and DVT prophylaxis per primary team Hypokalemia, resolved Continue K-Dur 20 mill equivalents daily Continue to monitor Chronic: Hypertension Continue Cozaar 50 mg daily Constipation Continue lactulose 30g 3 times daily GERD Continue Pepcid 20 mg p.o. at bedtime History of degenerative joint disease Continue Addison 53 25 every 6 hours as needed Continue Flexeril 5 mg p.o. at bedtime as needed F: 0.9% NS at 75 mL/h E: Replete as needed N: N.p.o. A: As tolerated DVT prophylaxis: Per primary team The patient is admitted with an anticipated more than 2 midnight stay for evaluation of colovesical fistula and complicated UTI CODE STATUS: Full code Discussed with: Patient Anticipated discharge place: Pending clinical course Objective - Vital Signs Vital signs: Vital Signs Temp 98.4 F 12/06/24 07:05 Pulse 94 12/06/24 07:05 Resp 16 12/06/24 07:05 BP 155/90 12/06/24 07:05 Pulse Ox 93 L 12/06/24 07:05 FiO2 Intake & Output 12/05/24 12/06/24 12/06/24 18:59 06:59 18:59 Output Total 1300 Balance -1300 Output: Urine 1300 Other: Voiding Method Indwelling Catheter # Voids 1 # Bowel Movements 2 2 1 - Labs CBC & Chem 7: 12/05/24 03:27 12/05/24 03:27
--- NOTE | 2024-12-06 11:49 | P.PN ---
Subjective Progress Note Date: 12/06/24 Patient has complaints of incisional pain. She has tolerated some diet. On exam vital signs appear stable. Abdomen soft. Incision sites are clean dry intact. Status post laparoscopic sigmoid colectomy. Patient will continue receive supportive care. Objective - Vital Signs Vital signs: Vital Signs Temp 98.4 F 12/06/24 07:05 Pulse 94 12/06/24 07:05 Resp 16 12/06/24 07:05 BP 155/90 12/06/24 07:05 Pulse Ox 93 L 12/06/24 07:05 FiO2 Intake & Output 12/05/24 12/06/24 12/06/24 18:59 06:59 18:59 Output Total 1300 Balance -1300 Output: Urine 1300 Other: Voiding Method Indwelling Catheter # Voids 1 1 # Bowel Movements 2 2 1 - Labs CBC & Chem 7: 12/05/24 03:27 12/05/24 03:27
[2024-12-06 15:19] LABS: Glucose,Whole Blood 140 mg/dL (70-110)
[2024-12-06] MEDS: SODIUM CHLORIDE 0.9% 500 ML 500 ML IV ONE (15:33)
[2024-12-06] MEDS: DILTIAZEM 125 MG in SODIUM CHLORIDE 0.9% 100 ML IV SCH (15:50)
[2024-12-06] MEDS: DILTIAZEM DRIP BOLUS FROM BAG 1 MG SOLN IV ONE (15:56)
[2024-12-06] MEDS: METOPROLOL TARTRATE 25 MG TAB PO SCH (16:41)
[2024-12-06] MEDS ORDERED: METOPROLOL TARTRATE 25 MG TAB PO SCH (21:00)
[2024-12-07 07:13] LABS: Basophils % (A) 0 %; Eosinophils % (A) 0 %; HGB 11.3 gm/dL (11.4-16.0); Lymphocytes # (A) 0.8 k/uL (1.0-4.8); Lymphocytes % (A) 14 %; MCH 31.8 pg (25.0-35.0); MCHC 32.3 g/dL (31.0-37.0); MCV 98.5 fL (80.0-100.0); Mean Platelet Volume 7.8; Monocytes # (A) 0.2 k/uL (0-1.0); Monocytes % (A) 4 %; Neutrophils # (A) 4.5 k/uL (1.3-7.7); Neutrophils % (A) 80 %; Platelet Count 230 k/uL (150-450); RBC 3.56 m/uL (3.80-5.40); RDW 13.4 % (11.5-15.5); WBC 5.7 k/uL (3.8-10.6)
[2024-12-07 08:26] LABS: African American GFR (CKD) >90 (>60 ml/min/1.73 sqM); Anion Gap 10 mmol/L; Blood Urea Nitrogen 18 mg/dL (7-17); Calcium 7.8 mg/dL (8.4-10.2); Carbon Dioxide 19 mmol/L (22-30); Chloride 108 mmol/L (98-107); Glucose 92 mg/dL (74-99); Non-African American GFR(CKD) 82 (>60 ml/min/1.73 sqM); Potassium 3.6 mmol/L (3.5-5.1); Sodium 137 mmol/L (137-145)
--- NOTE | 2024-12-07 08:41 | P.PN ---
Subjective Progress Note Date: 12/07/24 CHIEF COMPLAINT: Colovesical fistula HISTORY OF PRESENT ILLNESS: The patient is a 89-year-old female status post takedown and repair of colovesical fistula lower anterior resection 12/04/2024. Yesterday, patient went to atrial fibrillation with rapid ventricular response. She is tolerating diet. She is passing flatus. She is having bowel movements. Urine is completely clear. Patient was transferred from [facility] to [facility] due to atrial fibrillation. Prior to surgery, patient did obtain cardiac risk assessment. No signs of bleeding. Hemoglobin stable. ROS: No reports of nausea and vomiting. No fevers or chills. No new chest pain. PHYSICAL EXAM: VITAL SIGNS: Reviewed CONSTITUTIONAL: Well developed and in no acute distress. EYES: Conjuctivae without sclera icterus. Extraocular movements grossly intact. HEAD, EARS, NOSE, THROAT: Moist buccal mucosa. Head is atraumatic, normocepha lic. Hears conversational speech. No nasal drainage. RESPIRATORY: Non-labored respirations and equal bilateral excursions. CARDIOVASCULAR: Palpable 2+ radial pulses. ABDOMEN: Minimal ecchymosis. MUSCULOSKELETAL: No gross deformity of the lower extremities noted. No clubbing. No cyanosis. SKIN: Good skin turgor. Well perfused. NEUROLOGIC: Cranial nerves II through XII grossly intact. No focal or lateralizing signs. PSYCH: Appropriate affect. Alert and oriented to person, place and time. : Urine clear without fecal matter. I personally discontinued her Arias catheter. CLINICAL LABS: Reviewed. WBC normal. Hemoglobin stable 11.5-11.9. BMP pending. ASSESSMENT: 1. 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 Atrial fibrillation with rapid ventricular response, new PLAN: 1. Patient is on is on aztreonam including metronidazole. During surgery, no abscess was found. No cultures were obtained. 2. BMP pending. Prior to surgery, patient had low normal magnesium. May need replacement of magnesium. 3. Patient okay for anticoagulation. 4. Patient stable for discharge once resolution of atrial fibrillation and rapid ventricular response Objective - Vital Signs Vital signs: Vital Signs Temp 98.2 F 12/07/24 03:37 Pulse 136 H 12/07/24 07:44 Resp 16 12/07/24 07:44 BP 126/62 12/07/24 07:44 Pulse Ox 91 L 12/07/24 07:44 FiO2 Intake & Output 12/06/24 12/07/24 12/07/24 18:59 06:59 18:59 Intake Total 83.584 Output Total 1250 Balance -1166.416 Intake: Intake, IV Titration 83.584 Amount Diltiazem 125 mg In 83.584 Sodium Chloride 0.9% 100 ml @ 5 MG/HR 5 mls/hr IV .Q24H [facility] Rx#:[id number] Output: Urine 1250 Other: Voiding Method Indwelling Catheter # Voids 1 # Bowel Movements 1 - Labs CBC & Chem 7: 12/07/24 06:07 12/07/24 06:07 Labs: Abnormal Lab Results - Last 24 Hours (Table) 12/06/24 12/07/24 12/07/24 Range/Units 15:17 06:07 06:07 RBC 3.56 L (3.80-5.40) m/uL Hgb 11.3 L (11.4-16.0) gm/dL Lymphocytes # 0.8 L (1.0-4.8) k/uL Chloride 108 H (98-107) mmol/L Carbon Dioxide 19 L (22-30) mmol/L BUN 18 H (7-17) mg/dL POC Glucose (mg/dL) 140 H (70-110) mg/dL Calcium 7.8 L (8.4-10.2) mg/dL
--- NOTE | 2024-12-07 08:54 | P.PN ---
Subjective Progress Note Date: 12/06/24 Principal diagnosis: Reason for follow-up is colovesical fistula/UTI Patient is a 89-year-old female with a past medical history significant for CVA hypertension osteoarthritis history of recurrent UTIs in this patient has been recently diagnosed with a possible colovesical fistula, presenting back to the hospital with worsening abdominal pain did have a Arias catheter placement Patient is status post extensive lysis of adhesions , takedown of left pelvic phlegmon with takedown of colovesical fistula, procedure completed on 12/04/2024. On today's evaluation that is 12/06/2024, Patient is afebrile patient is currently on 2 L current oxygen and denies having any shortness of breath, the patient denies any chest pain or cough, the patient denies any nausea vomiting abdominal pain is currently controlled. Patient did not have any lab draw today Objective - Vital Signs Vital signs: Vital Signs Temp 97.9 F 12/06/24 16:28 Pulse 130 H 12/06/24 17:03 Resp 20 12/06/24 17:03 BP 128/82 12/06/24 17:03 Pulse Ox 93 L 12/06/24 16:28 FiO2 Intake & Output 12/05/24 12/06/24 12/06/24 18:59 06:59 18:59 Output Total 1300 Balance -1300 Output: Urine 1300 Other: Voiding Method Indwelling Catheter # Voids 1 1 # Bowel Movements 2 2 1 - Exam GENERAL DESCRIPTION: An elderly female up in the room in no distress RESPIRATORY SYSTEM: Unlabored breathing , decreased breath sounds at bases HEART: S1 S2 regular rate and rhythm , ABDOMEN: Soft , no tenderness EXTREMITIES: No edema feet - Labs CBC & Chem 7: 12/07/24 06:07 12/07/24 06:07 Labs: Abnormal Lab Results - Last 24 Hours (Table) 12/06/24 Range/Units 15:17 POC Glucose (mg/dL) 140 H (70-110) mg/dL Assessment and Plan (1) Abnormal urinalysis Current Visit: No Status: Acute Code(s): R82.90 - UNSPECIFIED ABNORMAL FINDINGS IN URINE SNOMED Code(s): 409941664 (2) Allergy to multiple antibiotics Current Visit: No Status: Acute Code(s): Z88.1 - ALLERGY STATUS TO OTHER ANTIBIOTIC AGENTS SNOMED Code(s): 069185074 (3) Colovesical fistula Current Visit: No Status: Acute Code(s): N32.1 - VESICOINTESTINAL FISTULA SNOMED Code(s): 74128322 Plan: 1patient presented to hospital with worsening abdominal pain did have significant abnormality on the CT concerning for significant mount of gas in the bladder likely related to colovesical fistula with significantly positive UA 2-patient with multiple antibiotic ALLERGIES that would limit the number of antibiotic safe to use 3-patient urine has been finalized with the Proteus that is a sensitive pathogen however the patient did have multiple allergies 4patient is status post extensive abdominal surgical lysis of adhesion n and takedown of the fistula mentioned drainage of the abscess but no cultures 5patient is currently being treated with with Azactam and Flagyl, on the basis of previous culture and multiple allergies Dictation was produced using [employer] dictation software. please excuse any grammatical, word or spelling errors. Time with Patient: Less than 30
[2024-12-07 09:49] LABS: Magnesium 1.9 mg/dL (1.6-2.3)
[2024-12-07] MEDS: MAGNESIUM SULFATE-D5W PMX 1 GM in DEXTROSE/WATER 1 100ML.BAG IVPB SCH (11:48)
[2024-12-07] MEDS: APIXABAN 2.5 MG TABLET PO SCH (11:48)
--- NOTE | 2024-12-07 12:58 | P.PN ---
Subjective HISTORY OF PRESENT ILLNESS: This is an 89-year-old female who underwent sigmoid colectomy and low anterior resection with Dr. Woodall on 12/04/2024. Cardiology was reconsulted for atrial fibrillation with RVR. Yesterday the patient went into A-fib with RVR. Patient was started on IV Cardizem. She subsequently converted to sinus mechanism and is maintaining sinus mechanism at the time of examination. The patient does report having palpitations yesterday. She denies any chest pain or pressure. She denies any shortness of breath. She continues to report surgical abdominal pain. She is tolerating liquid diet. PHYSICAL EXAM: VITAL SIGNS: Reviewed. GENERAL: Well-developed in no acute distress. NECK: Supple. No JVD or thyromegaly LUNGS: Respirations even and unlabored. Lungs essentially clear to auscultation bilaterally. HEART: Regular rate and rhythm. S1 and S2 heard. EXTREMITIES: Normal range of motion. No clubbing or cyanosis. Peripheral pulses intact. 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 Godoy Nurse practitioner note has been reviewed by physician. Signing provider agrees with the documented findings, assessment, and plan of care documented by [employer] as a scribe. Objective - Vital Signs Vital signs: Vital Signs Temp 98.2 F 12/07/24 03:37 Pulse 79 12/07/24 11:49 Resp 16 12/07/24 11:49 BP 130/72 12/07/24 11:49 Pulse Ox 90 L 12/07/24 11:49 FiO2 Intake & Output 12/06/24 12/07/24 12/07/24 18:59 06:59 18:59 Intake Total 83.584 170.667 Output Total 1250 Balance -1166.416 170.667 Intake: Intake, IV Titration 83.584 52.667 Amount Diltiazem 125 mg In 83.584 52.667 Sodium Chloride 0.9% 100 ml @ 5 MG/HR 5 mls/hr IV .Q24H REPLACED BY [facility] Rx#:[id number] Oral 118 Output: Urine 1250 Other: Voiding Method Indwelling Catheter Indwelling Catheter # Voids 1 # Bowel Movements 1 - Labs CBC & Chem 7: 12/07/24 06:07 12/07/24 06:07 Labs: Abnormal Lab Results - Last 24 Hours (Table) 12/06/24 12/07/24 12/07/24 Range/Units 15:17 06:07 06:07 RBC 3.56 L (3.80-5.40) m/uL Hgb 11.3 L (11.4-16.0) gm/dL Lymphocytes # 0.8 L (1.0-4.8) k/uL Chloride 108 H (98-107) mmol/L Carbon Dioxide 19 L (22-30) mmol/L BUN 18 H (7-17) mg/dL POC Glucose (mg/dL) 140 H (70-110) mg/dL Calcium 7.8 L (8.4-10.2) mg/dL Troponin I (0.000-0.034) ng/mL 12/07/24 Range/Units 09:14 RBC (3.80-5.40) m/uL Hgb (11.4-16.0) gm/dL Lymphocytes # (1.0-4.8) k/uL Chloride (98-107) mmol/L Carbon Dioxide (22-30) mmol/L BUN (7-17) mg/dL POC Glucose (mg/dL) (70-110) mg/dL Calcium (8.4-10.2) mg/dL Troponin I 0.083 H* (0.000-0.034) ng/mL
--- NOTE | 2024-12-07 13:54 | P.DS ---
Providers Date of admission: 11/27/24 18:59 Expected date of discharge: 12/07/24 Attending physician: Chika Tim Consults: 11/27/24 18:57 Consult Physician Routine Consulting Provider: Radha Woodall Consult Reason/Comments: surgery Do you want consulting provider notified?: Yes 11/28/24 13:00 Consult Physician Routine Consulting Provider: Esther Ren Consult Reason/Comments: Colovesical fistula Do you want consulting provider notified?: Yes 12/06/24 15:25 Consult Physician Routine Consulting Provider: Agustin Moore Consult Reason/Comments: nos afib rvr Do you want consulting provider notified?: Yes Primary care physician: Evangelista [facility] Course: Discharge diagnoses; Colovesical fistula status post sigmoid colectomy History of complicated UTIs Hypokalemia, resolved Hypertension Constipation GERD History of degenerative joint disease Hospital course; Patient is a 89-year-old female with past medical history of hypertension and CVA who came to the ER with a chief complaint of back pain, nausea, and vomiting which began yesterday. 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 At the time she was prescribed 2 antibiotics, but states she was unable to tolerate them. She states she was supposed to have surgery done and had an appointment to see cardiology for clearance outpatient. Besides the vomiting and back pain, the patient also endorses headaches, dysuria and some constipation. She denies fevers, chills, diarrhea, chest pain, shortness of breath. She denies any history of heart attacks, strokes, use of blood thinners. Vitals on admission temperature 97.5 F, heart rate 80 bpm, respiratory rate 18, blood pressure 132/76, O2 saturation 100% on room air. EKG independently interpreted as sinus rhythm with frequent PVCs and PACs, ventricular rate 96 bpm and QTc of [address] of reinsertion of colonic diverticulosis, large stool burden throughout the colon, distended urinary bladder. Labs on admission show WBC 7.8, hemoglobin 12.7, platelets 230. Sodium 134, potassium 4.4, chloride 1, bicarb 23, BUN 20, creatinine 0.9, glucose 106. UA was positive for blood, leukocyte esterase, bacteria, WBCs. 12/07/24 Patient seen and examined at bedside today. Labs today show WBCs 5.7, hemoglobin 11.3, platelets 230. Sodium 137, potassium 3.6, chloride 108, bicarb 19, BUN 18, creatinine 0.61. Overnight patient had acute episode of A-fib with RVR, but she is currently now in sinus rhythm. Patient has been cleared by surgery and cardiology for discharge. Patient states she is feeling better tolerating oral intake and denies any acute complaints at this time. She has been on room air. She is looking forward to being discharged today. Patient will be discharged home today. Patient is advised to be compliant with medications. Patient will complete course of Levaquin. Patient is advised to follow-up with PCP in 1 to 2 days. Patient is to follow-up with Dr. Woodall as listed in discharge instructions. Patient is to follow-up with Dr. Godoy in 1 week. Physical Exam: General: nontoxic, no distress, appears at stated age Derm: warm, dry, intact Head: atraumatic, normocephalic, symmetric Eyes: EOMI, anicteric sclera ENT: Patient has bilateral ear tubes Mouth: no lip lesion, mucus membranes moist Cardiovascular: S1 S2 reg, no murmur, rubs, or gallops Lungs: CTA bilateral, bilateral rhonchi, no rales, no accessory muscle use Abdominal: soft, non-tender to palpataion, no appreciable organomegaly, surgical incision is clean dry and intact. Extremities: no gross muscle atrophy, no edema, no contractures Neuro: Alert, Oriented, CNII-XII grossly intact, gait normal Psych: well appearing, appropriate affect Dictation was produced using [employer] dictation software. please excuse any grammatical, word or spelling errors. A total of minutes of 30 minutes were spent preparing this complex discharge summary. Patient was discharged on 12/07/2024 at 1341 Patient Condition at Discharge: Good Plan - Discharge Summary Discharge Rx Participant: No New Discharge Prescriptions: New Apixaban [Eliquis] 2.5 mg PO BID 30 Days #60 tab Potassium Chloride ER [K-Dur 20] 20 meq PO DAILY tab Metoprolol Tartrate [Lopressor] 25 mg PO BID 30 Days #60 tab Continue HYDROcodone/APAP 7.5-325MG [Franklin 7.5-325] 1 tab PO BID PRN PRN Reason: Pain Cyclobenzaprine [Flexeril] 5 mg PO HS PRN PRN Reason: Muscle Spasm Lactulose [Cephulac] 30 gm PO TID #360 ml Famotidine [Pepcid] 20 mg PO HS #30 tab Levofloxacin [Levaquin] 750 mg PO HS 14 Days #14 tab Losartan [Cozaar] 50 mg PO DAILY Discontinued metroNIDAZOLE [Flagyl] 500 mg PO TID 14 Days #42 tab Acetaminophen Tab [Tylenol] 650 mg PO Q6HR PRN tab PRN Reason: Mild Pain Or Fever > 100.5 Discharge Medication List Cyclobenzaprine [Flexeril] 5 mg PO HS PRN 11/20/24 [History] Losartan [Cozaar] 50 mg PO DAILY 11/20/24 [History] Famotidine [Pepcid] 20 mg PO HS #30 tab 11/24/24 [Rx] Apixaban [Eliquis] 2.5 mg PO BID 30 Days #60 tab 12/07/24 [Rx] HYDROcodone/APAP 5-325MG [Franklin 5-325] 1 each PO Q6HR PRN 4 Days #16 tab 12/07/24 [Rx] Levofloxacin [Levaquin] 750 mg PO HS 14 Days #14 tab 12/07/24 [Rx] Metoprolol Tartrate [Lopressor] 25 mg PO BID 30 Days #60 tab 12/07/24 [Rx] Potassium Chloride ER [K-Dur 20] 20 meq PO DAILY tab 12/07/24 [Rx] Follow up Appointment(s)/Referral(s): Jhonny Godoy DO [STAFF PHYSICIAN] - 1 Week Radha Woodall MD [STAFF PHYSICIAN] - 12/08/24 7:15 pm (TELEHEALTH - DR CALLS YOU) Evangelista Montero DO [Primary Care Provider] - 1-2 days [facility] Visiting Nurse, [NON-STAFF] - As Needed Patient Instructions/Handouts: Diverticulitis Diet (DC), Colectomy Diet (DC) Activity/Diet/Wound Care/Special Instructions: EXPECT BOWEL MOVEMENT WITH BLOOD FOR 1 WEEK, 12/11/24 TAKE LAXATIVE FOR CONSTIPATION AFTER 4 DAYS, 12/08/24 NO LONG DRIVES OR AIRPLANE RIDES OVER 60 MINUTES FOR THE NEXT 2 WEEKS, 12/18/24, DUE TO HIGH RISK OF PULMONARY EMBOLISM/DVTs May drive on 12/07/24 Wear abdominal binder for comfort. No lifting over 4 pounds in 4 weeks, January 01February shower. No bath tub soaks for two weeks January 01 Avoid steak, tough meats and seeds such as raspberry seeds and No broccoli until January 01 See diverticulitis, low fiber, colectomy diet Use Tylenol and ibuprofen scheduled for the next 24-48 hours for best pain relief. Use ice along incisions for today to prevent swelling. Discharge Disposition: HOME SELF-CARE
[2024-12-07] MEDS: LEVOFLOXACIN 750 MG TAB PO SCH (21:50)
[2024-12-08] MEDS: DILTIAZEM DRIP BOLUS FROM BAG 1 MG SOLN IV ONE (00:41)
[2024-12-08] MEDS: DILTIAZEM 125 MG in SODIUM CHLORIDE 0.9% 100 ML IV SCH (00:42)
[2024-12-08] MEDS: SODIUM CHLORIDE 0.9% 1,000 ML IV SCH (00:53)
[2024-12-08 07:26] VITALS: TEMP 98.2
[2024-12-08 11:34] VITALS: BP 121/72; PULSE 77; RESP 18
--- NOTE | 2024-12-08 11:50 | P.PN ---
Subjective Progress Note Date: 12/08/24 CHIEF COMPLAINT: Colovesical fistula HISTORY OF PRESENT ILLNESS: Patient is postop day #4 status post robotic assisted sigmoid colectomy and lower anterior resection for colovesical fistula. Patient reports her pain is controlled. She is tolerating diet. She did have a small stool. She was able to urinate this morning. Last night she did require to be straight cathed. She did go back into atrial fibrillation and had to be restarted on a Cardizem drip. She is followed by cardiology service. Th ey have started anticoagulation. Afebrile. WBC 5.7 PHYSICAL EXAM: VITAL SIGNS: Reviewed GENERAL: Well-developed in no acute distress. HEENT: No sclera icterus. Extraocular movements grossly intact. Moist buccal mucosa. Head is atraumatic, normocephalic. Hears conversational speech. No nasal drainage. NECK: Supple without lymphadenopathy. CHEST: Non-labored respirations and equal bilateral excursions. CARDIOVASCULAR: Palpable 2+ radial pulses. ABDOMEN: Soft. Nondistended. Incision sites clean dry and intact MUSCULOSKELETAL: No clubbing or cyanosis. NEUROLOGIC: No focal or lateralizing signs. Cranial nerves II through XII grossly intact. PSYCH: Appropriate affect. Alert and oriented to person, place and time. SKIN: Well perfused. Good skin turgor. ASSESSMENT: 1. 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 Atrial fibrillation with rapid ventricular response, new PLAN: -Okay for discharge from surgical standpoint when atrial fibrillation with rapid ventricular response resolves -Continue regular diet -antibiotics per ID service -Continue to monitor for urinary retention Physician Second Class Welder note has been reviewed by physician. Signing provider agrees with the documented findings, assessment, and plan of care. Please see additional documentation per MD CHIEF COMPLAINT: Colovesical fistula HISTORY OF PRESENT ILLNESS: The patient is a 89-year-old female status post takedown and repair of colovesical fistula lower anterior resection 12/04/2024. She is on low fiber diet. Pain is tolerable. Patient developed new onset atrial fibrillation during hospitalization. ROS: No reports of nausea and vomiting. No fevers or chills. No new chest pain. PHYSICAL EXAM: VITAL SIGNS: Reviewed CONSTITUTIONAL: Well developed and in no acute distress. EYES: Conjuctivae without sclera icterus. Extraocular movements grossly intact. HEAD, EARS, NOSE, THROAT: Moist buccal mucosa. Head is atraumatic, normocephalic. Hears conversational speech. No nasal drainage. RESPIRATORY: Non-labored respirations and equal bilateral excursions. CARDIOVASCULAR: Palpable 2+ radial pulses. ABDOMEN: incisions clean dry intact. MUSCULOSKELETAL: No gross deformity of the lower extremities noted. No clubbing. No cyanosis. SKIN: Good skin turgor. Well perfused. NEUROLOGIC: Cranial nerves II through XII grossly intact. No focal or lateralizing signs. PSYCH: Appropriate affect. Alert and oriented to person, place and time. CLINICAL LABS: Reviewed. WBC normal. ASSESSMENT: 1. 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 Atrial fibrillation with rapid ventricular response, new PLAN: 1. May use anticoagulation as hemoglobin has been stable several days after surgery 2. Continue with IV antibiotics per infectious disease. Objective - Vital Signs Vital signs: Vital Signs Temp 98.2 F 12/08/24 11:17 Pulse 77 12/08/24 11:17 Resp 18 12/08/24 11:17 BP 121/72 12/08/24 11:17 Pulse Ox 90 L 12/08/24 11:17 FiO2 Intake & Output 12/07/24 12/08/24 12/08/24 18:59 06:59 18:59 Intake Total 692.667 Output Total 1000 200 Balance 692.667 -1000 -200 Weight 54.431 kg 60.2 kg Intake: IV 300 Aztreonam 2 gm In Sodium 100 Chloride 0.9% 100 ml @ 33 .3 mls/hr IVPB Q8HR [facility] Rx#:[id number] Magnesium Sulfate-D5w Pmx 200 1 gm In Dextrose/Water 1 100ml.bag @ 100 mls/hr IVPB Q1H [facility] Rx#: [id number] Intake, IV Titration 52.667 Amount Diltiazem 125 mg In 52.667 Sodium Chloride 0.9% 100 ml @ 5 MG/HR 5 mls/hr IV .Q24H [facility] Rx#:[id number] Oral 340 Output: Urine 1000 200 Straight 500 Other: Voiding Method Indwelling Catheter # Bowel Movements 1 1 - Labs CBC & Chem 7: 12/07/24 06:07 12/07/24 06:07
--- NOTE | 2024-12-08 13:23 | P.PN ---
Subjective Progress Note Date: 12/07/24 Principal diagnosis: Reason for follow-up is colovesical fistula/UTI Patient is a 89-year-old female with a past medical history significant for CVA hypertension osteoarthritis history of recurrent UTIs in this patient has been recently diagnosed with a possible colovesical fistula, presenting back to the hospital with worsening abdominal pain did have a Arias catheter placement Patient is status post extensive lysis of adhesions , takedown of left pelvic phlegmon with takedown of colovesical fistula, procedure completed on 12/04/2024. On today's evaluation that is 12/07/2024, patient has been afebrile, patient is breathing comfortably and is currently on 2 L nasal cannula oxygen, patient denies having any significant cough no chest pain, patient denies nausea vomiting abdominal pain is currently controlled. Patient white count is 5.7, creatinine 0.61 Objective - Vital Signs Vital signs: Vital Signs Temp 98.2 F 12/07/24 03:37 Pulse 79 12/07/24 11:49 Resp 16 12/07/24 11:49 BP 130/72 12/07/24 11:49 Pulse Ox 90 L 12/07/24 11:49 FiO2 Intake & Output 12/06/24 12/07/24 12/07/24 18:59 06:59 18:59 Intake Total 83.584 170.667 Output Total 1250 Balance -1166.416 170.667 Intake: Intake, IV Titration 83.584 52.667 Amount Diltiazem 125 mg In 83.584 52.667 Sodium Chloride 0.9% 100 ml @ 5 MG/HR 5 mls/hr IV .Q24H [facility] Rx#:[id number] Oral 118 Output: Urine 1250 Other: Voiding Method Indwelling Catheter Indwelling Catheter # Voids 1 # Bowel Movements 1 - Exam GENERAL DESCRIPTION: An elderly female up in the room in no distress RESPIRATORY SYSTEM: Unlabored breathing , decreased breath sounds at bases HEART: S1 S2 regular rate and rhythm , ABDOMEN: Soft , no tenderness EXTREMITIES: No edema feet - Labs CBC & Chem 7: 12/07/24 06:07 12/07/24 06:07 Labs: Abnormal Lab Results - Last 24 Hours (Table) 12/06/24 12/07/24 12/07/24 Range/Units 15:17 06:07 06:07 RBC 3.56 L (3.80-5.40) m/uL Hgb 11.3 L (11.4-16.0) gm/dL Lymphocytes # 0.8 L (1.0-4.8) k/uL Chloride 108 H (98-107) mmol/L Carbon Dioxide 19 L (22-30) mmol/L BUN 18 H (7-17) mg/dL POC Glucose (mg/dL) 140 H (70-110) mg/dL Calcium 7.8 L (8.4-10.2) mg/dL Troponin I (0.000-0.034) ng/mL 12/07/24 Range/Units 09:14 RBC (3.80-5.40) m/uL Hgb (11.4-16.0) gm/dL Lymphocytes # (1.0-4.8) k/uL Chloride (98-107) mmol/L Carbon Dioxide (22-30) mmol/L BUN (7-17) mg/dL POC Glucose (mg/dL) (70-110) mg/dL Calcium (8.4-10.2) mg/dL Troponin I 0.083 H* (0.000-0.034) ng/mL Assessment and Plan (1) Abnormal urinalysis Current Visit: No Status: Acute Code(s): R82.90 - UNSPECIFIED ABNORMAL FINDINGS IN URINE SNOMED Code(s): 357989094 (2) Allergy to multiple antibiotics Current Visit: No Status: Acute Code(s): Z88.1 - ALLERGY STATUS TO OTHER ANTIBIOTIC AGENTS SNOMED Code(s): 448449556 (3) Colovesical fistula Current Visit: No Status: Acute Code(s): N32.1 - VESICOINTESTINAL FISTULA SNOMED Code(s): 52655909 Plan: 1patient presented to hospital with worsening abdominal pain did have significant abnormality on the CT concerning for significant mount of gas in the bladder likely related to colovesical fistula with significantly positive UA 2-patient with multiple antibiotic ALLERGIES that would limit the number of antibiotic safe to use 3-patient urine has been finalized with the Proteus that is a sensitive pathogen however the patient did have multiple allergies 4patient is status post extensive abdominal surgical lysis of adhesion n and takedown of the fistula and no abscess as reported by the surgeon 5patient is currently being treated with with Azactam and Flagyl, we will check with the micro lab if the Proteus she grew in the urine is sensitive to Ci pro/Levaquin and that may be the only oral option available Dictation was produced using [employer] dictation software. please excuse any grammatical, word or spelling errors. Time with Patient: Less than 30
--- NOTE | 2024-12-08 13:24 | P.PN ---
Subjective Progress Note Date: 12/08/24 Principal diagnosis: Reason for follow-up is colovesical fistula/UTI Patient is a 89-year-old female with a past medical history significant for CVA hypertension osteoarthritis history of recurrent UTIs in this patient has been recently diagnosed with a possible colovesical fistula, presenting back to the hospital with worsening abdominal pain did have a Arias catheter placement Patient is status post extensive lysis of adhesions , takedown of left pelvic phlegmon with takedown of colovesical fistula, procedure completed on 12/04/2024. On today's evaluation that is 12/08/2024, Patient is afebrile this morning patient denies having any chest pain shortness of breath or cough, the patient is currently on room air, patient denies any abdominal pain, no nausea no vomiting. No CBC was done today we did confirm with the micro lab at the Proteus she grew in the urine was resistant to Cipro and Levaquin Objective - Vital Signs Vital signs: Vital Signs Temp 98.2 F 12/08/24 07:24 Pulse 90 12/08/24 07:24 Resp 14 12/08/24 07:24 BP 152/68 12/08/24 07:24 Pulse Ox 89 L 12/08/24 07:24 FiO2 Intake & Output 12/07/24 12/08/24 12/08/24 18:59 06:59 18:59 Intake Total 692.667 Output Total 1000 200 Balance 692.667 -1000 -200 Weight 54.431 kg 60.2 kg Intake: IV 300 Aztreonam 2 gm In Sodium 100 Chloride 0.9% 100 ml @ 33 .3 mls/hr IVPB Q8HR [facility] Rx#:[id number] Magnesium Sulfate-D5w Pmx 200 1 gm In Dextrose/Water 1 100ml.bag @ 100 mls/hr IVPB Q1H [facility] Rx#: [id number] Intake, IV Titration 52.667 Amount Diltiazem 125 mg In 52.667 Sodium Chloride 0.9% 100 ml @ 5 MG/HR 5 mls/hr IV .Q24H [facility] Rx#:[id number] Oral 340 Output: Urine 1000 200 Straight 500 Other: Voiding Method Indwelling Catheter # Bowel Movements 1 1 - Exam GENERAL DESCRIPTION: An elderly female up in the room in no distress RESPIRATORY SYSTEM: Unlabored breathing , decreased breath sounds at bases HEART: S1 S2 regular rate and rhythm , ABDOMEN: Soft , no tenderness EXTREMITIES: No edema feet - Labs CBC & Chem 7: 12/07/24 06:07 12/07/24 06:07 Assessment and Plan (1) Abnormal urinalysis Current Visit: No Status: Acute Code(s): R82.90 - UNSPECIFIED ABNORMAL FINDINGS IN URINE SNOMED Code(s): 568647113 (2) Allergy to multiple antibiotics Current Visit: No Status: Acute Code(s): Z88.1 - ALLERGY STATUS TO OTHER ANTIBIOTIC AGENTS SNOMED Code(s): 131682520 (3) Colovesical fistula Current Visit: No Status: Acute Code(s): N32.1 - VESICOINTESTINAL FISTULA SNOMED Code(s): 81132209 Plan: 1patient presented to hospital with worsening abdominal pain did have significant abnormality on the CT concerning for significant mount of gas in the bladder likely related to colovesical fistula with significantly positive UA 2-patient with multiple antibiotic ALLERGIES that would limit the number of antibiotic safe to use 3-patient urine has been finalized with the Proteus that is a sensitive pathogen however the patient did have multiple allergies 4patient is status post extensive abdominal surgical lysis of adhesion n and takedown of the fistula and no abscess as reported by the surgeon 5patient Proteus she grew in the urine is resistant to Cipro/Levaquin, with no oral option patient has received more than 10 days of Azactam and Flagyl should be more than enough and recommending no need for antibiotic on discharge this was discussed with ARCH CUSHION SKIVING MACHINE OPERATOR for admitting team Dictation was produced using [employer] dictation software. please excuse any grammatical, word or spelling errors. Time with Patient: Less than 30
[2024-12-08] MEDS: AMIODARONE 200 MG TAB PO SCH (15:50)
--- NOTE | 2024-12-08 18:29 | P.PN ---
Subjective HISTORY OF PRESENT ILLNESS: This is an 89-year-old female who underwent sigmoid colectomy and low anterior resection with Dr. Woodall on 12/04/2024. Cardiology was reconsulted for atrial fibrillation with RVR. Yesterday the patient went into A-fib with RVR. Patient was started on IV Cardizem. She subsequently converted to sinus mechanism and is maintaining sinus mechanism at the time of examination. The patient does report having palpitations yesterday. She denies any chest pain or pressure. She denies any shortness of breath. She continues to report surgical abdominal pain. She is tolerating liquid diet. 12/08/2024 Patient examined this afternoon at the bedside. Overnight, patient went into atrial fibrillation with RVR. She was started on IV Cardizem. She subsequently converted to sinus mechanism and is maintaining sinus mechanism at the time of examination. She denies any chest pain or pressure. She denies any shortness of breath. She is hoping to be discharged home today. PHYSICAL EXAM: VITAL SIGNS: Reviewed. GENERAL: Well-developed in no acute distress. NECK: Supple. No JVD or thyromegaly LUNGS: Respirations even and unlabored. Lungs essentially clear to auscultation bilaterally. HEART: Regular rate and rhythm. S1 and S2 heard. EXTREMITIES: Normal range of motion. No clubbing or cyanosis. Peripheral pulses intact. 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 Godoy Nurse practitioner note has been reviewed by physician. Signing provider agrees with the documented findings, assessment, and plan of care documented by HEAD CONCIERGE as a scribe. Objective - Vital Signs Vital signs: Vital Signs Temp 98.2 F 12/08/24 11:17 Pulse 77 12/08/24 11:17 Resp 18 12/08/24 11:17 BP 121/72 12/08/24 11:17 Pulse Ox 90 L 02/18/25 11:17 FiO2 Intake & Output 12/07/24 12/08/24 12/08/24 18:59 06:59 18:59 Intake Total 692.667 113 Output Total 1000 300 Balance 692.667 -1000 -187 Weight 54.431 kg 60.2 kg Intake: IV 300 Aztreonam 2 gm In Sodium 100 Chloride 0.9% 100 ml @ 33 .3 mls/hr IVPB Q8HR [facility] Rx#:[id number] Magnesium Sulfate-D5w Pmx 200 1 gm In Dextrose/Water 1 100ml.bag @ 100 mls/hr IVPB Q1H [facility] Rx#: [id number] Intake, IV Titration 52.667 113 Amount Diltiazem 125 mg In 113 Sodium Chloride 0.9% 100 ml @ 10 MG/HR 10 mls/hr IV .[id number] [facility] Rx#: [id number] Diltiazem 125 mg In 52.667 Sodium Chloride 0.9% 100 ml @ 5 MG/HR 5 mls/hr IV .Q24H [facility] Rx#:[id number] Oral 340 Output: Urine 1000 300 Straight 500 Other: Voiding Method Indwelling Catheter Bedside Commode # Bowel Movements 1 1 - Labs CBC & Chem 7: 12/07/24 06:07 12/07/24 06:07
--- NOTE | 2024-12-10 13:44 | P.PN ---
Progress Note - Text Progress Note Date: 12/10/24 [id number]: Patient contacted at home. She reports expected weakness following almost 2 to 3-week hospitalization for urinary tract infection. Patient reports she is urinating every 2 hours. She also reports no more feculent matter in her bladder. Protein intake of 65 g daily described. She is tolerating diet. She is passing flatus and having bowel movement. Follow-up telehealth in 1 week.
--- NOTE | 2024-12-12 11:51 | P.DS ---
Providers Date of admission: 11/27/24 18:59 Expected date of discharge: 12/08/24 Attending physician: Chika Tim Consults: 11/27/24 18:57 Consult Physician Routine Consulting Provider: Radha Woodall Consult Reason/Comments: surgery Do you want consulting provider notified?: Yes 11/28/24 13:00 Consult Physician Routine Consulting Provider: Esther Ren Consult Reason/Comments: Colovesical fistula Do you want consulting provider notified?: Yes 12/06/24 15:25 Consult Physician Routine Consulting Provider: Agustin Moore Consult Reason/Comments: nos afib rvr Do you want consulting provider notified?: Yes Primary care physician: Evangelista Montero [facility] Course: Final diagnosis Colovesical fistula status post sigmoid colectomy atrial fibrillation with RVR, new onset, currently rate controlled History of complicated UTIs Hypokalemia, resolved Hypertension Constipation GERD History of degenerative joint disease Discharge disposition Patient is being discharged in a stable condition with guarded prognosis to home. Patient will follow-up with Dr. Montero in the outpatient setting upon discharge. Patient is to continue with current medications and close outpatient follow-up with cardiology and general surgery as scheduled. Total time taken is greater than 35 minutes. Hospital course Patient is a 89-year-old female with past medical history of hypertension and CVA who came to the ER with a chief complaint of back pain, nausea, and vomiting which began yesterday. 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 At the time she was prescribed 2 antibiotics, but states she was unable to tolerate them. She states she was supposed to have surgery done and had an appointment to see cardiology for clearance outpatient. Besides the vomiting and back pain, the patient also endorses headaches, dysuria and some constipation. She denies fevers, chills, diarrhea, chest pain, shortness of breath. She denies any history of heart attacks, strokes, use of blood thinners. Vitals on admission temperature 97.5 F, heart rate 80 bpm, respiratory rate 18, blood pressure 132/76, O2 saturation 100% on room air. EKG independently interpreted as sinus rhythm with frequent PVCs and PACs, ventricular rate 96 bpm and QTc of [address] of reinsertion of colonic diverticulosis, large stool burden throughout the colon, distended urinary bladder. Labs on admission show WBC 7.8, hemoglobin 12.7, platelets 230. Sodium 134, potassium 4.4, chloride 1, bicarb 23, BUN 20, creatinine 0.9, glucose 106. UA was positive for blood, leukocyte esterase, bacteria, WBCs. 12/07/24 Patient seen and examined at bedside today. Labs today show WBCs 5.7, hemoglobin 11.3, platelets 230. Sodium 137, potassium 3.6, chloride 108, bicarb 19, BUN 18, creatinine 0.61. Overnight patient had acute episode of A-fib with RVR, but she is currently now in sinus rhythm. Patient has been cleared by surgery and cardiology for discharge. Patient states she is feeling better tolerating oral intake and denies any acute complaints at this time. She has been on room air. She is looking forward to being discharged today. 12/08/2024 Patient will be discharged home today. Patient is advised to be compliant with medications. Patient per infectious disease has completed enough antibiotics and will be monitored off antibiotics.. Patient is advised to follow-up with PCP in 1 to 2 days. Patient is to follow-up with Dr. Woodall as listed in discharge instructions. Patient is to follow-up with Dr. Godoy in 1 week. Physical Exam: General: nontoxic, no distress, appears at stated age Derm: warm, dry, intact Head: atraumatic, normocephalic, symmetric Eyes: EOMI, anicteric sclera ENT: Patient has bilateral ear tubes Mouth: no lip lesion, mucus membranes moist Cardiovascular: S1 S2 reg, no murmur, rubs, or gallops Lungs: CTA bilateral, bilateral rhonchi, no rales, no accessory muscle use Abdominal: soft, non-tender to palpataion, no appreciable organomegaly, surgical incision is clean dry and intact. Extremities: no gross muscle atrophy, no edema, no contractures Neuro: Alert, Oriented, CNII-XII grossly intact, gait normal Psych: well appearing, appropriate affect Please refer to medication reconciliation sheet for a list of medications. The impression and plan of care has been dictated by Joann Tesfaye, Nurse Practitioner as directed. Dr. Yuridia MD I have performed a history and examination and MDM of this patient, discussed the same with the dictator, and agree with the dictator's assessment and plan as written ,documented as a scribe. Based on total visit time, I have performed more than 50% of the visit. Patient Condition at Discharge: Good Plan - Discharge Summary Discharge Rx Participant: No New Discharge Prescriptions: New Apixaban [Eliquis] 2.5 mg PO BID 30 Days #60 tab Ondansetron Odt [Zofran Odt] 4 mg PO Q8HR PRN #20 tab PRN Reason: Nausea Metoprolol Tartrate 25 mg PO BID #60 tab Potassium Chloride ER [K-Dur 20] 20 meq PO DAILY tab HYDROcodone/APAP 5-325MG [[place] 5-325] 1 each PO Q6HR PRN 4 Days #16 tab PRN Reason: Pain Amiodarone [Cordarone] 200 mg PO BID #60 tab Continue Cyclobenzaprine [Flexeril] 5 mg PO HS PRN PRN Reason: Muscle Spasm Famotidine [Pepcid] 20 mg PO HS #30 tab Losartan [Cozaar] 50 mg PO DAILY Discontinued HYDROcodone/APAP 7.5-325MG [[place] 7.5-325] 1 tab PO BID PRN PRN Reason: Pain Lactulose [Cephulac] 30 gm PO TID #360 ml metroNIDAZOLE [Flagyl] 500 mg PO TID 14 Days #42 tab Acetaminophen Tab [Tylenol] 650 mg PO Q6HR PRN tab PRN Reason: Mild Pain Or Fever > 100.5 Levofloxacin [Levaquin] 750 mg PO HS 14 Days #14 tab Discharge Medication List Cyclobenzaprine [Flexeril] 5 mg PO HS PRN 11/20/24 [History] Losartan [Cozaar] 50 mg PO DAILY 11/20/24 [History] Famotidine [Pepcid] 20 mg PO HS #30 tab 11/24/24 [Rx] Apixaban [Eliquis] 2.5 mg PO BID 30 Days #60 tab 12/07/24 [Rx] HYDROcodone/APAP 5-325MG [[place] 5-325] 1 each PO Q6HR PRN 4 Days #16 tab 12/07/24 [Rx] Potassium Chloride ER [K-Dur 20] 20 meq PO DAILY tab 12/07/24 [Rx] Amiodarone [Cordarone] 200 mg PO BID #60 tab 12/08/24 [Rx] Metoprolol Tartrate 25 mg PO BID #60 tab 12/08/24 [Rx] Ondansetron Odt [Zofran Odt] 4 mg PO Q8HR PRN #20 tab 12/08/24 [Rx] Follow up Appointment(s)/Referral(s): Jhonny Godoy DO [STAFF PHYSICIAN] - 12/17/24 2:30 pm ( with Shari DUST MOP MAKER) Radha Woodall MD [STAFF PHYSICIAN] - 12/08/24 7:15 pm (TELEHEALTH - DR CALLS YOU) Evangelista Montero DO [Primary Care Provider] - 1-2 days (PLease call to schedule appointment) [facility] Visiting Nurse, [NON-STAFF] - As Needed Patient Instructions/Handouts: Diverticulitis Diet (DC), Colectomy Diet (DC) Activity/Diet/Wound Care/Special Instructions: Activity limited until follow-up Follow-up with primary care provider this week Follow-up with cardiology this week Continue taking medications as prescribed EXPECT BOWEL MOVEMENT WITH BLOOD FOR 1 WEEK, 12/11/24 TAKE LAXATIVE FOR CONSTIPATION AFTER 4 DAYS, 12/08/24 NO LONG DRIVES OR AIRPLANE RIDES OVER 60 MINUTES FOR THE NEXT 2 WEEKS, 12/18/24, DUE TO HIGH RISK OF PULMONARY EMBOLISM/DVTs May drive on 12/07/24 Wear abdominal binder for comfort. No lifting over 4 pounds in 4 weeks, January 01 May shower. No bath tub soaks for two weeks January 01 Avoid steak, tough meats and seeds such as raspberry seeds and No broccoli until January 01 See diverticulitis, low fiber, colectomy diet Use Tylenol and ibuprofen scheduled for the next 24-48 hours for best pain relief. Use ice along incisions for today to prevent swelling. Discharge/Stand Alone Forms: Who Do I Call? Discharge Disposition: HOME WITH HOME HEALTH SERVICES
== END 2024-12-08 17:30 | disposition home health service (06) | DRG 330 ==
LOC: EC 12:37 → 4SSUR 18:58 → OBSVTOIN 18:59 → 4SSUR 20:02 → 3SCARD 12-06 17:11
PROVIDERS: ADMIT Hospitalist; ATTEND Hospitalist
PROC: 0DBK8ZX Excision of Ascending Colon, Via Natural or Artificial Opening Endoscopic, Diagnostic (ICD-10-PCS; 2024-12-03)
PROC: 0TNB4ZZ Release Bladder, Percutaneous Endoscopic Approach (ICD-10-PCS; principal; 2024-12-04 11:20)
PROC: 0DBP4ZZ Excision of Rectum, Percutaneous Endoscopic Approach (ICD-10-PCS; principal; 2024-12-04 11:20)
PROC: 8E0W4CZ Robotic Assisted Procedure of Trunk Region, Percutaneous Endoscopic Approach (ICD-10-PCS; principal; 2024-12-04 11:20)
PROC: 0DBN4ZZ Excision of Sigmoid Colon, Percutaneous Endoscopic Approach (ICD-10-PCS; principal; 2024-12-04 11:20)
PROC: 0DNE4ZZ Release Large Intestine, Percutaneous Endoscopic Approach (ICD-10-PCS; principal; 2024-12-04 11:20)
DX: K57.32 Diverticulitis of large intestine without perforation or abscess without bleeding (principal); K56.51 Intestinal adhesions [bands], with partial obstruction; I27.20 Pulmonary hypertension, unspecified; N32.1 Vesicointestinal fistula; I10 Essential (primary) hypertension; N39.0 Urinary tract infection, site not specified; I48.0 Paroxysmal atrial fibrillation; E87.6 Hypokalemia; R32 Unspecified urinary incontinence; I49.3 Ventricular premature depolarization; E78.5 Hyperlipidemia, unspecified; M81.0 Age-related osteoporosis without current pathological fracture; K64.1 Second degree hemorrhoids; D12.3 Benign neoplasm of transverse colon; B96.4 Proteus (mirabilis) (morganii) as the cause of diseases classified elsewhere; K59.00 Constipation, unspecified; K21.9 Gastro-esophageal reflux disease without esophagitis; M19.90 Unspecified osteoarthritis, unspecified site; Z79.899 Other long term (current) drug therapy; Z87.891 Personal history of nicotine dependence; Z87.440 Personal history of urinary (tract) infections; Z86.73 Personal history of transient ischemic attack (TIA), and cerebral infarction without residual deficits; Z88.1 Allergy status to other antibiotic agents; Z88.0 Allergy status to penicillin; Z88.2 Allergy status to sulfonamides; Z88.3 Allergy status to other anti-infective agents; Z88.8 Allergy status to other drugs, medicaments and biological substances
CPT/HCPCS: 36415; 45385; 64999; 74022; 74177; 80048; 80053; 81001; 82150; 83605; 83690; 83735; 84443; 84484; 85025; 85027; 86850; 86900; 86901; 87077; 87086; 87186; 88305; 88307; 93306; 96374; 96375; 99285

== ENCOUNTER 2025-02-15 11:36 | Emergency (ER) | payer MEDICARE ==
--- NOTE | 2025-02-15 12:38 | ED ---
General Adult HPI - General Chief complaint: Back Pain/Injury Stated complaint: R Back Pain Time Seen by Provider: 02/15/25 12:04 Source: patient, family, RN notes reviewed Mode of arrival: ambulatory Limitations: no limitations - History of Present Illness Initial comments: Patient is an 89-year-old female present to the emergency department with lizzette rns with right posterior rib pain. Onset of symptoms was around 4 days ago. Patient did go to the clinic and was diagnosed with shingles and prescribed lidocaine patches. Discomfort has been waxing and waning. Discomfort is not necessarily positional. Discomfort is right lower lateral posterior rib region. No lower back pain. No abdominal pain. No chest pain. No history of similar symptoms previously. Patient also has some discomfort left lateral mid femur however that is more mild. No rashes. - Related Data Home Medications Medication Instructions Recorded Confirmed Cyclobenzaprine [Flexeril] 5 mg PO HS PRN 11/20/24 11/27/24 Losartan [Cozaar] 50 mg PO DAILY 11/20/24 11/27/24 Previous Rx's Medication Instructions Recorded Famotidine [Pepcid] 20 mg PO HS #30 tab 11/24/24 Apixaban [Eliquis] 2.5 mg PO BID 30 Days #60 tab 12/07/24 HYDROcodone/APAP 5-325MG [Jamieson 1 each PO Q6HR PRN 4 Days #16 tab 12/07/24 5-325] Potassium Chloride ER [K-Dur 20] 20 meq PO DAILY tab 12/07/24 Amiodarone [Cordarone] 200 mg PO BID #60 tab 12/08/24 Metoprolol Tartrate 25 mg PO BID #60 tab 12/08/24 Ondansetron Odt [Zofran Odt] 4 mg PO Q8HR PRN #20 tab 12/08/24 Cyclobenzaprine [Flexeril] 10 mg PO TID PRN #15 tablet 02/15/25 Allergies Allergy/AdvReac Type Severity Reaction Status Date / Time alendronate sodium Allergy Unknown Verified 02/15/25 11:53 [From Fosamax] ceftriaxone [From Rocephin] Allergy Unknown Verified 02/15/25 11:53 Penicillins Allergy Unknown Verified 02/15/25 11:53 Hqvpqtb-QVJ-KqD Reductase Allergy Unknown Verified 02/15/25 11:53 Inhibitor [Elacxqf-Wwz-Ysq Reductase Inhibitor] sulfamethoxazole Allergy facial Verified 02/15/25 11:53 [From Bactrim] swelling trimethoprim [From Bactrim] Allergy facial Verified 02/15/25 11:53 swelling amoxicillin AdvReac mouth Verified 02/15/25 11:53 blisters bacitracin AdvReac blisters Verified 02/15/25 11:53 [From Neosporin ([id number])] bacitracin zinc AdvReac blisters Verified 02/15/25 11:53 [From Neosporin ([id number]-[id number])] neomycin sulfate AdvReac blisters Verified 02/15/25 11:53 [From Neosporin ([id number])] polymyxin B AdvReac blisters Verified 02/15/25 11:53 [From Neosporin ([id number])] Review of Systems ROS Statement: Those systems with pertinent positive or pertinent negative responses have been documented in the HPI. ROS Other: All systems not noted in ROS Statement are negative. Constitutional: Denies: fever Eyes: Denies: eye pain ENT: Denies: ear pain Respiratory: Denies: cough, dyspnea Cardiovascular: Denies: chest pain Gastrointestinal: Denies: abdominal pain Genitourinary: Denies: dysuria, hematuria Musculoskeletal: Reports: as per HPI Skin: Reports: as per HPI. Denies: rash Past Medical History Past Medical History: CVA/TIA, Hypertension, Osteoarthritis (OA) Additional Past Medical History / Comment(s): possible TIA 2015, hx fx vertebrae in back., back pain, osteoporosis. History of Any Multi-Drug Resistant Organisms: None Reported Past Surgical History: Hysterectomy, Joint Replacement Additional Past Surgical History / Comment(s): colonoscopy, total rt knee Past Anesthesia/Blood Transfusion Reactions: Previous Problems w/ Anesthesia, Postoperative Nausea & Vomiting (PONV) Additional Past Anesthesia/Blood Transfusion Reaction / Comment(s): passed out after discharge from colonoscopy and went by ambulance back to the ER. Past Psychological History: No Psychological Hx Reported Smoking Status: Former smoker Past Alcohol Use History: None Reported Past Drug Use History: None Reported - Past Family History Sister(s) Family Medical History: Cancer Additional Family Medical History / Comment(s): pancreatic cancer Mother Family Medical History: Hypertension, Osteoarthritis (OA) Father Additional Family Medical History / Comment(s): panic attacks and alcoholism General Exam Limitations: no limitations General appearance: alert, in no apparent distress Head exam: Present: normocephalic Eye exam: Present: normal appearance Neck exam: Present: normal inspection Respiratory exam: Present: normal lung sounds bilaterally. Absent: chest wall tenderness Cardiovascular Exam: Present: regular rate, normal rhythm, normal heart sounds Expanded Peripheral pulses: 2+: Radial (R), Radial (L), Dorsalis Pedis (R), Dorsalis Pedis (L) GI/Abdominal exam: Present: soft. Absent: tenderness Extremities exam: Present: tenderness (Minimal tenderness left lateral mid femur without erythema, warmth, or rash) Back exam: Absent: tenderness, CVA tenderness (R), paraspinal tenderness, vertebral tenderness Neurological exam: Present: alert. Absent: motor sensory deficit Psychiatric exam: Present: normal affect, normal mood Skin exam: Present: normal color. Absent: rash Course Vital Signs 02/15/25 02/15/25 02/15/25 11:51 13:48 16:00 Temperature 97.8 F 98.0 F Pulse Rate 72 67 71 Respiratory 18 16 15 Rate Blood Pressure 115/74 163/78 168/72 O2 Sat by Pulse 98 97 96 Oximetry Medical Decision Making - Medical Decision Making Was pt. sent in by a medical professional or institution (, PA, DESIGN LEAD, urgent care, hospital, or intermediate...) When possible be specific @ -No Did you speak to anyone other than the patient for history (EMS, parent, family, police, friend...)? What history was obtained from this source @ -Patient daughters are present to help provide history including patient's symptoms Did you review nursing and triage notes (agree or disagree)? Why? @ -I reviewed and agree with nursing and triage notes Were old charts reviewed (outside hosp., previous admission, EMS record, old EKG, old radiological studies, urgent care reports/EKG's, intermediate records)? Report findings @ -No old charts were reviewed Differential Diagnosis (chest pain, altered mental status, abdominal pain women, abdominal pain men, vaginal bleeding, weakness, fever, dyspnea, syncope, headache, dizziness, GI bleed, back pain, seizure, CVA, palpatations, mental health, musculoskeletal)? @ -Differential Musculoskeletal Muscular strain, contusion, ligament sprain, fracture, arthritis, septic arthritis, bursitis, cellulitis, muscle spasm, nerve compression, DVT, arterial occlusion, herpes zoster, electrolyte abnormality, tumor.... This is not meant to be in all inclusive list EKG interpreted by me (3pts min.). @ -As above X-rays interpreted by me (1pt min.). @ -Left femur x-ray shows no acute process. Right rib x-rays show nonspecific changes, cannot rule out [address] interpreted by me (1pt min.). @ -None done U/S interpreted by me (1pt. min.). @ -None done What testing was considered but not performed or refused? (CT, X-rays, U/S, labs)? Why? @ -None What meds were considered but not given or refused? Why? @ -None Did you discuss the management of the patient with other professionals (prof ele i.e. , PA, DESIGN LEAD, lab, RT, psych nurse, social work supervisor, natural resource officer, teacher, surface to air weapons officer, immigration case manager)? Give summary @ -No Was smoking cessation discussed for >3mins.? @ -No Was critical care preformed (if so, how long)? @ -No Were there social determinants of health that impacted care today? How? (Homelessness, low income, unemployed, alcoholism, drug addiction, transportation, low edu. Level, literacy, decrease access to med. care, assisted, rehab)? @ -No Was there de-escalation of care discussed even if they declined (Discuss DNR or withdrawal of care, Hospice)? DNR status @ -No What co-morbidities impacted this encounter? (DM, HTN, Smoking, COPD, CAD, Cancer, CVA, ARF, Chemo, Hep., AIDS, mental health diagnosis, sleep apnea, morbid obesity)? @ -None Was patient admitted / discharged? Hospital course, mention meds given and route, prescriptions, significant lab abnormalities, going to OR and other pertinent info. @ -Patient presents with right posterior rib discomfort, workup unremarkable. Patient reevaluated and still having some discomfort. Patient requesting muscle relaxers. Patient and family are updated on results. Patient would like to be discharged home. Undiagnosed new problem with uncertain prognosis? @ -No Drug Therapy requiring intensive monitoring for toxicity (Heparin, Nitro, Insulin, Cardizem)? @ -No Were any procedures done? @ -No Diagnosis/symptom? @ -Thoracic strain Acute, or Chronic, or Acute on Chronic? @ -Acute Uncomplicated (without systemic symptoms) or Complicated (systemic symptoms)? @ -Default Side effects of treatment? @ -No Exacerbation, Progression, or Severe Exacerbation? @ -No Poses a threat to life or bodily function? How? (Chest pain, USA, SD, pneumonia, PE, COPD, DKA, ARF, appy, cholecystitis, CVA, Diverticulitis, Homicidal, Suicidal, threat to staff... and all critical care pts) @ -No - Lab Data Result diagrams: 02/15/25 13:20 02/15/25 13:20 Lab Results 02/15/25 02/15/25 02/15/25 Range/Units 13:20 13:20 13:20 WBC 3.83 L (4.50-10.00) 10*3/uL RBC 3.77 L (4.10-5.20) 10*6/uL Hgb 12.1 (12.0-15.0) g/dL Hct 36.9 L (37.2-46.3) % MCV 97.9 H (80.0-97.0) fL MCH 32.1 H (27.0-32.0) pg MCHC 32.8 (32.0-37.0) g/dL Plt Count 192 (140-440) 10*3/uL MPV 9.6 (9.5-12.2) fL Immature Gran % (Auto) 0.3 % Neutrophils % 59.7 % Lymphocytes % 23.8 % Monocytes % 10.2 % Eosinophils % 4.4 % Basophils % 1.6 % Immature Gran # 0.01 (0.00-0.04) 10*3/uL Neutrophils # 2.29 (1.80-7.70) 10*3/uL Lymphocytes # 0.91 (0.90-5.00) 10*3/uL Monocytes # 0.39 (0.20-1.00) 10*3/uL Eosinophils # 0.17 (0.04-0.35) 10*3/uL Basophils # 0.06 (0.00-0.10) 10*3/uL D-Dimer 0.49 (<0.60) mg/L FEU Sodium 137 (137-145) mmol/L Potassium 4.0 (3.5-5.1) mmol/L Chloride 104 (98-107) mmol/L Carbon Dioxide 27 (22-30) mmol/L Anion Gap 6 mmol/L BUN 23 H (7-17) mg/dL Creatinine 0.97 (0.52-1.04) mg/dL Est GFR (CKD-EPI)AfAm 61 (>60 ml/min/1.73 sqM) Est GFR (CKD-EPI)NonAf 53 (>60 ml/min/1.73 sqM) Glucose 74 (74-99) mg/dL Calcium 8.9 (8.4-10.2) mg/dL Total Bilirubin 0.7 (0.2-1.3) mg/dL AST 26 (14-36) U/L ALT 15 (4-34) U/L Alkaline Phosphatase 69 (38-126) U/L Total Protein 7.5 (6.3-8.2) g/dL Albumin 4.0 (3.5-5.0) g/dL Disposition Clinical Impression: Thoracic myofascial strain Disposition: HOME SELF-CARE Condition: Stable Instructions (If sedation given, give patient instructions): Thoracic Back Strain (ED), Back Pain (ED) Additional Instructions: Prescription has been sent to pharmacy. Please do follow-up with your primary care physician in the next couple of days for recheck. Return for increased pain, difficulty breathing, fever, weakness, worsening or changing symptoms or other concerns. Prescriptions: Cyclobenzaprine [Flexeril] 10 mg PO TID PRN #15 tablet PRN Reason: Pain Is patient prescribed a controlled substance at d/c from ED?: No Referrals: Evangelista Montero DO [Primary Care Provider] - 1-2 days Time of Disposition: 17:06
--- NOTE | 2025-02-15 13:14 | XR ---
EXAMINATION TYPE: XR ribs RT w pa chest xray DATE OF EXAM: 02/15/2025 12:57 PM COMPARISON: Chest 12/02/2024 CLINICAL INDICATION: Female, 89 years old with history of pain; PHH, pain TECHNIQUE: 5 views FINDINGS: Heart normal size. Atherosclerotic arch calcifications. Hyperinflation. Bilateral interstitial densit y unchanged. Biapical pleural parenchymal scarring. Some focal opacity just lateral to the aortic kno b within the medial left upper lung possibly prominent rib end. There is some questionable irregularity noted along the sixth anterolateral rib only seen on one view . IMPRESSION: 1. Possible irregularity along the sixth anterolateral right rib only seen on one view. Subtle nondis placed rib fracture versus projection artifact. Correlate for any point tenderness. 2. COPD. No acute cardiopulmonary process. 3. Some focal density medial left upper lung may reflect a prominent rib end. Recommend radiographic follow-up in 4-6 weeks to reassess and exclude the possibility of an underlying pulmonary nodule. Thi s is felt less likely as no corresponding opacity was seen 2 months ago. [facility], , 02/15/2025 1:11 PM
--- NOTE | 2025-02-15 13:16 | XR ---
EXAMINATION TYPE: XR femur 2 views LT DATE OF EXAM: 02/15/2025 12:57 PM COMPARISON: None CLINICAL INDICATION: Female, 89 years old with history of pain; PHH, pain FINDINGS: Either phlebolith or some heterotopic ossification posterior left hip. Generalized muscle atrophy. Os teopenia. No displaced fracture seen. There is medial and lateral compartment degenerative spurring n oted at the knee. No significant knee joint effusion on the lateral view. IMPRESSION: Osteopenia limiting the assessment. No acute osseous abnormality seen. If the patient is nonweightbea ring or if there is high clinical concern for an occult osseous injury, MRI can provide more sensitiv e evaluation. [facility], Workstation: [id number], 02/15/2025 1:13 PM
[2025-02-15 13:30] LABS: Basophils # (A) 0.06 10*3/uL (0.00-0.10); Basophils % (A) 1.6 %; Eosinophils # (A) 0.17 10*3/uL (0.04-0.35); Eosinophils % (A) 4.4 %; HCT 36.9 % (37.2-46.3); HGB 12.1 g/dL (12.0-15.0); Lymphocytes # (A) 0.91 10*3/uL (0.90-5.00); Lymphocytes % (A) 23.8 %; MCH 32.1 pg (27.0-32.0); MCHC 32.8 g/dL (32.0-37.0); MCV 97.9 fL (80.0-97.0); Mean Platelet Volume 9.6 fL (9.5-12.2); Monocytes # (A) 0.39 10*3/uL (0.20-1.00); Monocytes % (A) 10.2 %; Neutrophils # (A) 2.29 10*3/uL (1.80-7.70); Neutrophils % (A) 59.7 %; Platelet Count 192 10*3/uL (140-440); RBC 3.77 10*6/uL (4.10-5.20); RDW 13.8 % (11.5-14.5); WBC 3.83 10*3/uL (4.50-10.00)
[2025-02-15 13:42] LABS: ALT 15 U/L (4-34); AST 26 U/L (14-36); African American GFR (CKD) 61 (>60 ml/min/1.73 sqM); Alkaline Phosphatase 69 U/L (38-126); Anion Gap 6 mmol/L; Blood Urea Nitrogen 23 mg/dL (7-17); Calcium 8.9 mg/dL (8.4-10.2); Carbon Dioxide 27 mmol/L (22-30); Chloride 104 mmol/L (98-107); Glucose 74 mg/dL (74-99); Non-African American GFR(CKD) 53 (>60 ml/min/1.73 sqM); Sodium 137 mmol/L (137-145); Total Bilirubin 0.7 mg/dL (0.2-1.3); Total Protein 7.5 g/dL (6.3-8.2)
[2025-02-15] MEDS: KETOROLAC 15 MG/ML 1 ML VIAL IVP STA (13:42)
[2025-02-15] MEDS: MORPHINE SULFATE 4 MG/ML SYRINGE IVP STA (13:43)
[2025-02-15] MEDS: ACETAMINOPHEN IV (For NPO) 1,000 MG in EMPTY BAG 1 BAG IVPB STA (14:59)
[2025-02-15 16:44] VITALS: TEMP 98
[2025-02-15] MEDS: ORPHENADRINE 30 MG/ML 2 ML VIAL IVP STA (17:32)
[2025-02-15 18:15] VITALS: BP 150/78; PULSE 73; RESP 16
== END 2025-02-15 17:58 | disposition home or self-care (01) ==
LOC: EC 11:36
DX: S29.012A Strain of muscle and tendon of back wall of thorax, initial encounter (principal); Z87.891 Personal history of nicotine dependence; Z88.1 Allergy status to other antibiotic agents; Z88.8 Allergy status to other drugs, medicaments and biological substances; Z88.0 Allergy status to penicillin; Z88.2 Allergy status to sulfonamides; Z79.01 Long term (current) use of anticoagulants; X58.XXXA Exposure to other specified factors, initial encounter
CPT/HCPCS: 36415; 85379; 80053; 85025; 71101; 73552; 99284; 96365; 96375 ×3; J2270; J2360; J0131; J1885

== ENCOUNTER → 2025-04-16 | Outpatient (CLI) | payer MEDICARE ==
--- NOTE | 2025-04-16 12:00 | XR ---
EXAMINATION TYPE: XR chest 2V DATE OF EXAM: 04/16/2025 11:32 AM COMPARISON: 02/15/2025 CLINICAL INDICATION: Female, 89 years old with history of R91.8 abnormal findings lung field, TECHNIQUE: XR chest 2V view(s) obtained. FINDINGS: The heart size is normal. The pulmonary vasculature is normal. The lungs are clear. Left upper lobe density not appreciated on the current exam. IMPRESSION: 1. No acute pulmonary process. [facility], , 04/16/2025 11:57 AM
== END | disposition home or self-care (01) ==
LOC: RADXRMAIN 11:12
PROVIDERS: ATTEND Family Medicine
DX: R91.8 Other nonspecific abnormal finding of lung field (principal)
CPT/HCPCS: 71046